=== PATIENT | female | born 1980 | race Caucasian/White ===

== ENCOUNTER → 2022-09-03 11:46 | Outpatient (CLI) | payer OTHER, SELFPAY ==
--- NOTE | ~2022-09-03 | US_ITS ---
Thyroid ultrasound. Clinical History: Nontoxic goiter Findings: Real-time sonography of the thyroid gland was performed. The right lobe measures 4.2 x 1.6 x 1.5 cm. The left lobe measures 4.1 x 1.2 x 1.6 cm. The isthmus is 4 mm in AP diameter. There is a 4 mm hypoechoic nodule at the left midpole. There is an adjacent 3 mm hypoechoic nodules w ith the left midpole. Impression: Subcentimeter left thyroid lobe nodules, as noted above. No further follow-up required for these find ings.. Reviewed, dictated and finalized at location M. US PERFORMER Impression: Subcentimeter left thyroid lobe nodules, as noted above. No further follow-up r equired for these findings..
== END ==
PROVIDERS: PCP Internal Medicine; Visit Provider Internal Medicine Endocrinology, Diabetes & Metabolism
DX: E04.2 Nontoxic multinodular goiter (principal)
CPT/HCPCS: 76536

== ENCOUNTER → 2022-11-14 13:00 | Outpatient (CLI) | payer OTHER, SELFPAY ==
--- NOTE | ~2022-11-14 | CT_ITS ---
EXAMINATION: CT abdomen wo/w con DATE: 11/14/2022 13:46 INDICATION: Abnormal cortisol. Abnormal results of other endocrine function studies. TECHNIQUE: Computed tomography (CT) of the abdomen was performed without and with 100 mL Omnipaque 35 0 intravenous contrast. Automated exposure control and iterative reconstruction technique were employ ed. The dose-length product was 2032.34 mGy-cm. COMPARISON: None. FINDINGS: The visualized portions of the lung bases demonstrate mild atelectasis. No pleural effusion . The heart size is normal. No pericardial effusion. There is diffuse hepatic steatosis. There are ch anges of cholecystectomy. The pancreas, spleen, and right adrenal gland are normal. There is a 10 mm mass in left adrenal gland measuring low-attenuation on noncontrast images, consistent with an adenom a. The kidneys are normal. There are no dilated loops of bowel. There is moderate thoracic spondylosi s and mild lumbar spondylosis. There is an electrode in left S3 neural foramen. IMPRESSION: 1. 10 mm left adrenal adenoma. 2. Diffuse hepatic steatosis. Reviewed, dictated and finalized at location A.
[2022-11-14 13:21] LABS: Estimated Glomerular Filt Rate > 60
== END ==
PROVIDERS: PCP Internal Medicine; Visit Provider Internal Medicine Endocrinology, Diabetes & Metabolism
DX: R94.7 Abnormal results of other endocrine function studies (principal); D35.02 Benign neoplasm of left adrenal gland; K76.0 Fatty (change of) liver, not elsewhere classified
CPT/HCPCS: 74170; Q9967

== ENCOUNTER → 2023-06-24 09:40 | Outpatient (CLI) | payer OTHER, MEDICAID, SELFPAY ==
--- NOTE | ~2023-06-24 | MM_ITS ---
EXAMINATION: MM screening justina BI w doreen HISTORY: Screening mammogram TECHNIQUE: Craniocaudal and mediolateral oblique 3-D tomosynthesis images were obtained and synthetic 2-D images were generated. CAD analysis was submitted and interpreted. COMPARISON: None, baseline BREAST PARENCHYMAL COMPOSITION: There are scattered areas of fibroglandular density. FINDINGS: No suspicious mass, calcification, or architectural distortion are identified in either balwinder ast to suggest malignancy. IMPRESSION: 1. No mammographic evidence of malignancy. 2. Recommend routine screening mammography in one year. BI-RADS Category 1: Negative Reviewed, dictated and finalized at location A. TING DETAILER
== END ==
PROVIDERS: Visit Provider Internal Medicine
DX: Z12.31 Encounter for screening mammogram for malignant neoplasm of breast (principal)
CPT/HCPCS: 77063; 77067

== ENCOUNTER 2024-03-15 07:54 | Outpatient (CLI) | payer OTHER, MEDICAID, SELFPAY ==
--- NOTE | 2024-04-04 11:55 | WPDSLEEPSTUD ---
Sleep Study Date of Study: 03/15/24 Ordering Provider: Arianne Rodriguez DO Interpreting Physician: Shellie Tellez MD Sleep Study Type: Split Polysomnogram Height: 1.63 m Weight: 108.862 kg Body Mass Index: 41.1 Neck Circumference (inches): 17 [place]: 11 Reason for Sleep Study Hypersomnolence, known obstructive sleep apnea, has use CPAP previously * 04/24/2024, home sleep test, AHI 5, desaturation 86% * 05/27/2014, CPAP titration optimal pressure 7 cm. Patient used the CPAP machine for year then quit, unable to tolerate CPAP. Sleep History Betzy Morales is a 43-year-old woman who complains of loud snoring, excessive daytime sleepiness including falling asleep at her desk. She is an civilian jail officer. She has other family members have sleep apnea. She has difficulty waking in the morning. She has used CPAP in the past, in 2013, after a home sleep test showing mild obstructive sleep apnea. She occasionally awakens from sleep feeling short of breath. She constantly awakens at night with heartburn, belching or coughing if she does not use Nexium. She frequently snores and is frequently loud enough that others complain about it. She constantly has difficulty sleeping when she has a cold. She rarely wakes up gasping for breath at night. She frequently has breathing problems at night observed by others. She occasionally sweats excessively at night, occasionally notices her heart pounding or beating irregularly at night. She rarely falls asleep during the day, however occasionally falls asleep involuntarily. She does not fall asleep while driving. She frequently has loss of muscle tone with strong emotion. She rarely has daytime difficulties due to excessive sleepiness. She rarely feels paralyzed on waking or falling asleep. She occasionally has vivid dreamlike scenes upon awakening or falling asleep. She rarely feels afraid to go to sleep. She frequently has nightmares. She frequently remembers her dreams. She rarely has racing thoughts. She rarely feels sad, depressed, or anxious. She always has muscular tension. She frequently notices parts of her body jerking. She occasionally kicks at night and occasionally has crawling and aching feelings in her legs. She occasionally has leg pain during the night. She frequently has morning jaw pain. She constantly grinds her teeth at night. She constantly is bothered by pain during the day, constantly is awakened by pain during the night. She constantly wakes up feeling stiff in the morning with sore achy muscles and pain in the neck and spine. Normal bedtime is 11:00 p.m., falling asleep within 30 minutes, sometimes not waking during that night but occasionally waking once at night to use the bathroom. She is able to return to sleep within 5 minutes. Her normal wake time is 7:00 a.m.. On weekends, she goes to bed later, 12 midnight and wakes at 10:00 a.m.. Sometimes she is too tired to go out on the weekends. She estimates getting an average of 7-8 hours of sleep at night. She is sleepy for 2 hours after waking. She does not generally take naps in the afternoon or evening but a short nap lasting 10-15 minutes might be refreshing. She feels better in the afternoon compared to other times of day. Habits: Tobacco: quit 10 years ago Caffeine: 1-2 per day Alcohol: none Recreational substances: none PMF Past Medical History Medical History delivery delivered 2007 and 2014 Endometriosis determined by laparoscopy Hydronephrosis due to obstruction of bladder JOSE (obstructive sleep apnea) Post-lymphadenectomy lymphedema of arm 2001 & 2004 Surgical History Surgical History History of carpal tunnel release 04/2023 & 09/2023 History of cholecystectomy Family History Family History (Reviewed 04/07/24 @ 21:03 by Melisa
[2024-04-07 21:24] VITALS: BMI 41.1
== END 2024-03-16 06:58 | disposition home or self-care (01) ==
LOC: ANHCSM 07:54
PROVIDERS: PCP Family Medicine; Visit Provider Family Medicine
DX: G47.9 Sleep disorder, unspecified (principal); G47.33 Obstructive sleep apnea (adult) (pediatric)
CPT/HCPCS: 95811

== ENCOUNTER 2024-08-01 16:10 | Emergency (ER) | payer OTHER, MEDICAID, SELFPAY ==
--- NOTE | ~2024-08-01 | XR_ITS ---
EXAMINATION: XR chest 2V DATE: 08/01/2024 16:43 INDICATION: Shortness of breath, cough and congestion TECHNIQUE: frontal and lateral views of the chest were obtained. COMPARISON: None FINDINGS: The lungs are clear with no focal airspace opacities, pulmonary edema, pleural effusion or pneumothor ax. The cardiomediastinal silhouette is normal. Cholecystectomy clips in the upper abdomen. IMPRESSION: 1. No acute cardiopulmonary disease. Reviewed, dictated and finalized at location A. T COMBINE DRIVER
--- NOTE | 2024-08-01 16:23 | ED.URI ---
HPI - URI/Sore Throat General Chief Complaint: Upper Respiratory Infection Stated Complaint: Congestion Time Seen by Provider: 08/01/24 16:23 Source: patient Mode of arrival: ambulatory Limitations: no limitations History of Present Illness HPI Narrative: Betzy is a 43-year-old female patient presenting to the clinic today with complaints of cough and congestion x2 days. She reports she is having some chest heaviness/ left chest discomfort with nonproductive cough and chest congestion. She has had pneumonia exposure from her father. Denies any fevers, chills, or body aches. No recent travel, injury/trauma, or hemoptysis. Patient vapes. MD elicited complaint: sore throat and nasal congestion Related Data Home Medications ?Medication ?Instructions ?Recorded ?Confirmed ?Last Taken ?Type acetaminophen 650 mg 650 mg PO TID 10/21/22 07/11/24 Unknown History tablet,extended release (Tylenol Arthritis Pain) cetirizine 10 mg capsule (Zyrtec) 10 mg PO DAILY PRN 10/21/22 07/11/24 Unknown History epinephrine 0.15 mg/0.15 mL subcut PRN 10/21/22 07/11/24 Unknown History auto-injector (for 33 to 66 lb patients) esomeprazole magnesium 20 mg 20 mg PO DAILY 10/21/22 07/11/24 Unknown History capsule,delayed release (Nexium) fexofenadine 180 mg tablet 180 mg PO DAILY 10/21/22 07/11/24 Unknown History (Sara Allergy) fluticasone propionate 50 1 spray intranasal DAILY 10/21/22 07/11/24 Unknown History mcg/actuation nasal spray,suspension (Flonase Allergy Relief) levomefolate Ca 3 mg-B6 35 1 cap PO BID 10/21/22 07/11/24 Unknown History mg-meB12 2 mg-algal oil 90.314 mg capsule (Metanx (algal oil)) methenam 118 mg-m.blue 10 1 tablet PO QID 10/21/22 07/11/24 Unknown History mg-s.phos 40.8 mg-p.salic 36 mg-hyos capsule (Uro-MP) montelukast 10 mg tablet 10 mg PO DAILY 10/21/22 07/11/24 Unknown History (Singulair) olopatadine 0.2 % eye drops 1 drp EACH EYE DAILY 10/21/22 07/11/24 Unknown History olopatadine 0.6 % nasal spray 2 spray intranasal Q12H 10/21/22 07/11/24 Unknown History rizatriptan 10 mg tablet (Maxalt) 10 mg PO ONCE PRN 10/21/22 07/11/24 Unknown History tacrolimus 0.5 mg capsule, 0.5 mg PO BID 10/21/22 07/11/24 Unknown History immediate-release MP Thyroid See Rx Instructions PO .COMPLEX 07/11/24 07/11/24 Unknown History amlodipine 10 mg-benazepril 40 mg 1 cap PO DAILY 07/11/24 07/11/24 Unknown History capsule chlorthalidone 25 mg tablet 25 mg PO DAILY 07/11/24 07/11/24 Unknown History diazepam 2 mg tablet 2 mg PO QHS PRN 07/11/24 07/11/24 Unknown History estradiol 0.25 mg/0.25 gram (0.1 1 packet transdermal DAILY 07/11/24 07/11/24 Unknown History %) transdermal gel packet naltrexone 50 mg tablet 9 mg PO TID 07/11/24 07/11/24 Unknown History spironolactone 25 mg tablet 100 mg PO DAILY 07/11/24 07/11/24 Unknown History testosterone 100 mg implant pellet 100 mg subcut ONCE 07/11/24 07/11/24 Unknown History venlafaxine 75 mg capsule,extended 75 mg PO DAILY 07/11/24 07/11/24 Unknown History release 24 hr Allergies Allergy/AdvReac Type Severity Reaction Status Date / Time Penicillins Allergy Intermediate Hives Verified 08/01/24 16:18 latex Allergy Unknown SWELLING, Verified 08/01/24 16:18 ITCHING codeine AdvReac Intermediate disorienate Verified 08/01/24 16:18 d pseudoephedrine AdvReac Intermediate increase Verified 08/01/24 16:18 pluse propoxyphene AdvReac Mild Nausea and Verified 08/01/24 16:18 Vomiting Review of Systems Review of Systems: Pertinent positives per HPI. Patient denies any fever, chills, rash, headache, visual changes, dizziness, chest pain, palpitations, nausea, vomiting, diarrhea, constipation, abdominal pain, or any urinary issues. PMFSH Past Medical History Medical History JOSE (obstructive sleep apnea) Hydronephrosis due to obstruction of bladder delivery delivered 2007 and 2014 Post-lymphadenectomy lymphedema of arm 2001 & 2004 Endometriosis determined by laparoscopy Surgical History Surgical History History of carpal tunnel release 04/2023 & 09/2023 History of cholecystectomy Family History Family History Mother Hypertension Heart problem Father Alcoholism Diabetes mellitus Hypertension Grandparent Skin cancer FH: prostate cancer Hypertension Heart problem Cerebrovascular accident Grandparent Diabetes mellitus Hypertension Other Family history of arthritis Social History Social History Social History: pt is currently on Annovera for contraceptive. She quit vaping in 2013. Had her flu vaccine in Jun, Tetanus vaccine in 2017, and pneumonia vaccine in 2013. Drinks 1 cup of soda, coffee, and tea/day. She is currently . 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 Betzy has had 3 pregnancies, 1 miscarriage and 2 live births. Date of last menstrua was 04/14/2022. She does monthly breast exams. Smoking status: Never smoker Tobacco type: e-cigarettes/vaping Smoking end date: 06/26/13 Alcohol intake: current Alcohol use details: 1-2 drinks monthly Substance use: never Substance use type: does not use Do You Feel Safe in your Home?: Yes Lack of Transportation: No Current Housing: I Have Housing Difficulty w/ Childcare or Family Care: Decline to Answer Living arrangements: alone Occupation/Education: occupation Additional occupation/education comments: Audit Specialist at [employer] Gender identity (if verbalized by the patient): Female Sexual Orientation (if Verbalized by the Patient): Straight or Heterosexual Agree to blood products: Yes Comments At the time of my signature, I reviewed and agree with the nursing past medical, surgical, social, and family history. There is no relevant family history pertinent to the patient complaint. Exam Narrative: General: Well-developed, well nourished, in no apparent distress Head: Normocephalic, atraumatic Eyes: Pupils equally round and reactive to light bilaterally, EOM intact, sclera and conjunctive clear, no discharge, lids normal Ears: TMs intact and clear, ear canals clear, no drainage, grossly hearing normal. Nose: Nares patent, clear nasal discharge, no inflammation, no sinus tenderness. Mouth: Oral pharynx without lesions or masses, good dentition, MMM. Neck: Supple, trachea midline, no enlargement of anterior or posterior cervical nodes, no thyroid masses or goiter palpable. Cardio: Regular rate and rhythm, s1 and s2 normal, no murmur appreciated. Resp: Clear to auscultation bilaterally, no rhonchi, rales, wheezing or rubs Course Course Emergency Course: Portions of this record may have been created with voice recognition software. Level of Care: Express Care Visit Vital Signs Vital signs: Vital Signs Temperature 36.9 C 08/01/24 16:32 Pulse Rate 93 08/01/24 16:32 Respiratory Rate 16 08/01/24 16:32 Blood Pressure 153/93 H 08/01/24 16:32 Pulse Oximetry 98 08/01/24 16:32 Oxygen Delivery Room Air 08/01/24 16:32 Temperature 36.9 C 08/01/24 16:32 Pulse Rate 93 08/01/24 16:44 Respiratory Rate 16 08/01/24 16:44 Blood Pressure 153/93 H 08/01/24 16:32 Pulse Oximetry 98 08/01/24 16:44 Oxygen Delivery Room Air 08/01/24 16:32 Vital signs reviewed MDM - URI/Sore Throat MDM Narrative Medical decision making narrative: At the time of visit patient is resting comfortably on the exam table. Patient appears to be nontoxic. Labs: COVID and influenza testing was negative in the clinic today. Diagnostics: Chest x-rays negative for any acute cardiopulmonary process. Wells criteria for PE: 0.0?points Low risk group: 1.3% chance of PE in an ED population. Another study assigned scores <=4 as ?PE Unlikely? and had a 3% incidence of PE. Plan: I suspect patient has URI with cough and congestion. Prescription for prednisone and albuterol inhaler was sent to the pharmacy. Supportive measures were discussed with the patient and they voiced understanding discharge instructions and agrees to treatment plan. Return precautions reviewed Differential Diagnosis Differential diagnosis: Likely upper respiratory infection, otitis media, sinusitis, viral infection, bronchitis, influenza, pharyngitis and other (COVID) Imaging Data Radiologist's impression: ITS Impressions Chest X-Ray 08/01/24 16:46 IMPRESSION: 1. No acute cardiopulmonary disease. Discharge Plan Discharge Clinical Impression: Upper respiratory infection with cough and congestion Patient Disposition: Home, Self-Care Condition: Stable Instructions: Antibiotic Form, Cold Symptoms (ED) Additional Instructions: Chest x-rays negative for any acute cardiopulmonary process Take prescription medications only as prescribed-prednisone and albuterol inhaler Increase fluids and stay well hydrated Tylenol/motrin for pain/fever Flonase and OTC antihistamines as directed Vicks vapor rub to open sinuses Sinus rinses for congestion Cepacol spray, cough drops, throat lozenges, warm tea with honey/lemon, gargle salt water to soothe throat BRAT diet for diarrhea Clear liquids x 24 hours then advance as tolerated for nausea/vomiting Go to the ED if you develop a worsening in your condition- high fever not controlled by Tylenol or Motrin, dehydration, weakness, lethargy, shortness of breath, or chest pain. Follow up with your PCP in 3-5 days if symptoms persist. Patient Language: Ukrainian Prescriptions: New prednisone 20 mg tablet 40 mg PO DAILY 5 Days Qty: 10 0RF albuterol sulfate 90 mcg/actuation HFA aerosol inhaler 2 puff inhalation Q4-6H PRN (Reason: shortness of breath or wheezing) 30 Days Qty: 8.5 0RF No Action montelukast [Singulair] 10 mg tablet 10 mg PO DAILY olopatadine 0.6 % spray,non-aerosol 2 spray intranasal Q12H Rx Instructions: administer into each nostril olopatadine 0.2 % drops 1 drp EACH EYE DAILY [id number]-algal oil [Metanx (algal oil)] 3 mg-35 mg-2 mg -90.314 mg capsule 1 cap PO BID epinephrine 0.15 mg/0.15 mL auto-injector subcut PRN Zyrtec 10 mg capsule 10 mg PO DAILY PRN esomeprazole magnesium [Nexium] 20 mg capsule,delayed release(DR/EC) 20 mg PO DAILY fexofenadine [Sara Allergy] 180 mg tablet 180 mg PO DAILY fluticasone propionate [Flonase Allergy Relief] 50 mcg/actuation spray,suspension 1 spray intranasal DAILY Rx Instructions: administer into each nostril Uro-MP 118-10-40.8-36 mg capsule 1 tablet PO QID Rx Instructions: administer with plenty of fluids tacrolimus 0.5 mg capsule 0.5 mg PO BID rizatriptan [Maxalt] 10 mg tablet 10 mg PO ONCE PRN Rx Instructions: as a single dose acetaminophen [Tylenol Arthritis Pain] 650 mg tablet extended release 650 mg PO TID testosterone 100 mg pellet 100 mg subcut ONCE Rx Instructions: as a single dose estradiol 0.25 mg/0.25 gram (0.1 %) gel in packet 1 packet transdermal DAILY MP Thyroid See Rx Instructions PO .COMPLEX Rx Instructions: 30mg orally; chlorthalidone 25 mg tablet 25 mg PO DAILY amlodipine-benazepril 10-40 mg capsule 1 cap PO DAILY venlafaxine 75 mg capsule,extended release 24hr 75 mg PO DAILY diazepam 2 mg tablet 2 mg PO QHS PRN naltrexone 50 mg tablet 9 mg PO TID spironolactone 25 mg tablet 100 mg PO DAILY Patient Comments: Take 2 tablets by mouth once daily (DME) CPAP Equipment See Rx Instructions .Route .MEDSUPPLY Qty: 1 0RF Rx Instructions: Rx: CPAP 7 cm H2O, size small ResMed AirFit N 30 I under the nose mask, CPAP filters/tubing DME: IV & Resp Care Follow-up/Referrals: Mone,Bernabe Dumont MD [Primary Care Provider] - Time of Disposition: 16:51 Quality NIHSS Nursing Documentation ED NIHSS nursing documentation: reviewed/agree
[2024-08-01 16:32] VITALS: BP 153/93; PULSE 93; RESP 16; TEMP 36.9; O2SAT 98
[2024-08-01 16:44] VITALS: PULSE 93; RESP 16; O2SAT 98
[2024-08-01 18:50] LABS: EDCOVIDSCREEN Negative (Negative); EDINFLUASCREEN Negative (Negative); EDINFLUBSCREEN Negative (Negative)
== END 2024-08-01 17:02 | disposition home or self-care (01) ==
PROVIDERS: Emergency Provider Nurse Practitioner Family; PCP Internal Medicine
DX: J06.9 Acute upper respiratory infection, unspecified (principal); F17.290 Nicotine dependence, other tobacco product, uncomplicated; Z20.822 Contact with and (suspected) exposure to COVID-19
CPT/HCPCS: 71046; 87426; 87804; 99213; G0463

== ENCOUNTER 2024-12-26 16:26 | Emergency (ER) | payer OTHER, MEDICAID, SELFPAY ==
--- OUTSIDE RECORDS SUMMARY | 2024-12-26 16:28 | XMS_ITS | Encounter Summary ---
Author Organization [facility] Health Address [address] [place] [address] Care Team Providers Care Certified Medical Aide Name Role Phone Unavailable Primary Care Provider Unavailabl e Prior Encounters Date Type Department Care Team Description 07/15/2019 Converted CPS Chart Documents [facility] [address] [place] [id number] <No scans attached> 07/15/2019 Converted 13x Documents [facility] [address] [place] [phone] <No scans attached> Plan of Treatment Not on file Procedures Procedure Name Priority Date/Time Associated Diagnosis Comments CANCELLED APPOINTMENT Routine 11/24/2020 2:00 AM CDT PERIO MAINTENANCE Routine 08/19/2020 2:0 0 AM FORENSIC LOCKSMITH ORAL HYGIENE INSTRUCTIONS Routine 2020 2:00 AM FORENSIC LOCKSMITH PERIODIC ORAL EVALUATION - ESTABLISHED PATIENT Routine 08/19/2020 2:00 AM FORENSIC LOCKSMITH BITEWINGS - FOUR RADIOGRAPHIC IMAGES Routine 08/19/2020 2:00 AM FORENSIC LOCKSMITH NC X-RAY Routine 08/03/2020 2:00 AM FORENSIC LOCKSMITH OFFICE VISIT FOR OBSERVATION (DURING REGULARLY SCHEDULED HOURS) - NO OTHER SERVICES PERFORMED Routine 07/10/2020 2:00 AM FORENSIC LOCKSMITH 9 [place] Routine 06/18/2020 2:0 0 AM FORENSIC LOCKSMITH CANCELLED APPOINTMENT Routine 05/14/2020 2:00 AM FORENSIC LOCKSMITH 15 CORE BUILDUP, INCLUDING ANY PINS WHEN REQUIRED Routine 04/13/2020 2:00 AM CDT 15 CEMENT CROWN Routine 04/13/2020 2:00 AM CDT 15 CERECFIRED CROWNPOST Routine 04/13/20 2:00 AM CDT NC X-RAY Routine 04/13/2020 2:00 AM CDT 14 O COMPOSITE FILLING Routine 0 2:00 AM CDT PERIODIC ORAL EVALUATION - ESTABLISHED PATIENT Routine 02/12/2020 2:00 AM CDT PERIO MAINTENANCE Routine 02/12/2020 2:0 0 AM CDT ORAL HYGIENE INSTRUCTIONS Routine 2019 2:00 AM CDT PERIO MAINTENANCE Routine 08/08/2019 2:0 0 AM FORENSIC LOCKSMITH ORAL HYGIENE INSTRUCTIONS Routine 2019 2:00 AM FORENSIC LOCKSMITH UL PERIODONTAL SCALING AND ROOT PLANING - FOUR OR MORE TEETH PER QUADRANT Routine 05/15/2019 2:00 AM FORENSIC LOCKSMITH ORAL HYGIENE INSTRUCTIONS Routine 2018 2:00 AM FORENSIC LOCKSMITH UL HONEY DECON/QD Routine 05/15/2019 2:00 AM FORENSIC LOCKSMITH UL ANTIBACT IRR/QUAD Routine 05/15/2019 2:00 AM FORENSIC LOCKSMITH PROPHYLAXIS - ADULT Routine 05/15/2019 2 :00 AM FORENSIC LOCKSMITH BITEWINGS - FOUR RADIOGRAPHIC IMAGES Routine 05/15/2019 2:00 AM FORENSIC LOCKSMITH PERIO CONSULT Routine 05/02/2019 2:00 AM FORENSIC LOCKSMITH Visit Diagnoses Not on file Insurance O
--- OUTSIDE RECORDS SUMMARY | 2024-12-26 16:28 | XMS_ITS ---
Author Organization [facility] Address [address] [facility], [address] [address] Phone Care Team Providers Care Welfare Interviewer Name Role Phone Bernabe Shore MD Primary Care Provider [phone] Ole Ryder MD Unavailable [phone] Dandy Ji MD Unavailable [phone] Jordan Rocha MD Unavailable [phone] Joan Pedraza APRN, EVAPORATOR OPERATOR [employer] Unavailable [phone] [employer] Chronic Condition Monitoring Status:Enrolled (Active) Start date:05/02/2024 Enrollment date:05/02/2024 Related social drivers of health:Intimate Partner Violence, Tobacco Use, Financial Resource Strain, Stress, Physical Activity, Transportation Needs Continued Care and Services Coordination
[2024-12-26 16:29] VITALS: BP 123/86; PULSE 123; RESP 20; TEMP 36.3; O2SAT 100
--- OUTSIDE RECORDS SUMMARY | 2024-12-26 16:29 | XMS_ITS | Encounter Summary ---
Author Organization [facility] Healthcare Address [address] [place] [address] Care Team Providers Care Residential Property Tax Appraiser Name Role Phone Bernabe Shore MD Primary Care Provider [phone] Bernabe Shore MD Unavailable [phone] Ole Hodge MD Unavailable [phone] Nathalia Ba MD Unavailable [phone] Dandy Ji MD Unavailable [phone] Milagro Beauchamp MD Unavailable [phone] Familia Painting MD Unavailable [phone] Emi Anderson MD Unavailable [phone] Rocio Mata DPT Unavailable [phone] Reason for Visit * Reason Onset Date Comments PMC Preprocedure 11/29/2024 Encounter Details Date Type Department Care Team (Late st Contact Info) Description 11/29/2024 Telephone [facility] [address] [facility] [address] [place] [address] Alie Rosas MD [address] [place] [address] PMC Preprocedure Social History Tobacco Use Types Packs/Day Years Used Date Smoking Tobacco: Former Cigarettes 1 13 0 11/24/2000 - 11/24/2013 E-cigarettes Vaping Smokeless Tobacco: Never Alcohol Use Standard Drinks/Week Comments Yes 0 (1 standard drink = 0.6 oz pur e alcohol) AUDIT-C Answer Date Recorded Q1: How often do you have a drink containing alc ohol? Monthly or less 10/25/2024 Q2: How many drinks containi ng alcohol do you have on a typical day when you are drinking? 1 or 2 10/25/2024 Q3: How often do you have si x or more drinks on one occasion? Never 10/25/2024 Hunger Vital Sign Answer Date Recorded Within the past 12 months, y ou worried that your food would run out before you got the money to buy more. Never true 09/18/19 25 Within the past 12 months, t he food you bought just didn't last and you didn't have money to get more. Never true 09/17/2024 Personal Safety Answer Date Recorded Have you ever been in or are you currently in a harmful physical or emotional relationship or is someone making you feel afraid or unsafe? 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 file Not on file Not on file documented as of this encounter Plan of Treatment Upcoming Encounters Date Type Department Care Team (Late st Contact Info) Description 02/28/2025 11:30 AM CDT Hospital Encounter [facility] [address] [place] [address] Kacey Jean MD [address] [facility] [phone] [place] [address] 02/28/2025 11:30 AM CDT - 02/28/2025 3:25 PM CDT Surgery [facility] [address] [place] [address] Kacey Jean MD [address] [phone] [place] [address] CYSTOSCOPY Scheduled Procedures Name Priority Associated Diagnoses Date/Ti me CYSTOSCOPY Endometriosis Chronic pelvic pain in female 02/28/2025 11:30 AM CDT XI HYSTERECTOMY - LAPAROSCOPIC ROBOTIC ASSISTED Endometriosis Chronic pelvic pain in female 02/28/2025 11:30 AM CDT XI SALPINGO - LAPAROSCOPIC ROBOTIC ASSISTED Endometriosis Chronic pelvic pain in female 02/28/2025 11:30 AM CDT XI ROBOTIC OPERATIVE LAPAROSCOPY - EXCISION ENDOMETRIOSIS Endometriosis Chronic pelvic pain in female 02/28/2025 11:30 AM CDT XI APPENDECTOMY - LAPAROSCOPIC ROBOTIC ASSISTED Endometriosis Chronic pelvic pain in female 02/28/2025 11:30 AM CDT XI OOPHORECTOMY - LAPAROSCOPIC ROBOTIC ASSISTED Endometriosis Chronic pelvic pain in female 02/28/2025 11:30 AM CDT documented as of this encounter Goals Goal Patient Goal Type Associated Problems Recent Progress Patient-Stated? Author CCM Chronic Pain Care Plan Chronic Care Management On track(2024 2:39 PM CDT) No Karina Bennett, KAI Note: Problem: Chronic Pain Goals: 1. Minimize further functional decline 2. Maximize quality of life 3. Control pain Strategies: - Activity/exercise program recommendation - Conservative stepwise pain medicine strategy with multi-disciplinary approach - Recommend healthy lifestyle strategies and compensatory methods as needed Reduce the likelihood of falling Lifestyle Improving( 9:47 AM CDT) No Nathalia Norton RN Note: Below are four things you can do to prevent falls: Begin an exercise program to improve your leg strength & balance Ask your doctor or pharmacist to review your medicines Get annual eye check-ups & update your eyeglasses Make your home safer by: Removing clutter & tripping hazards Putting railings on all stairs & adding grab bars in the bathroom Having good lighting, especially on stairs Contact your local community or senior center for information on exercise, fall prevention programs, or options for improving home safety. documented as of this encounter Visit Diagnoses Not on filedocumented in this encounter Care Teams Residential Property Tax Appraiser Relationship Specialty Start Date End Date Bernabe Shore MD 2 [facility] [address] [place] [address] PCP - General Family Medicine 07/24/23 Bernabe Shore MD [address] [address] 07/24/23 Ole Hodge MD [address] [place] [address] 03/15/18 Nathalia Ba MD [address] [place] [address] Referring Physician Ophthalmology 10/25/22 Dandy Ji MD [address] [place] [phone] Neurologist Neurology 10/25/22 Milagro Beauchamp MD [address] [place] [phone] Neurologist Neurology 10/25/22 Familia Painting MD [address] [place] [phone] Consulting Physician Rheumatology 10/25/22 Emi Anderson MD [address] [place] [phone] Surgeon Orthopedic Surgery 11/04/22 Rocio Mata DPT [address] [facility] [address] [facility] [address] [place] [address] Physical Therapist Physical Therapy 10/17/24 documented as of this encounter
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
--- OUTSIDE RECORDS SUMMARY | 2024-12-26 16:29 | XMS_ITS | Encounter Summary ---
Author Organization [facility] Address [address] [place] [address] Phone Care Team Providers Care Aquatic Life Laborer Name Role Phone Bernabe Shore MD Primary Care Provider Ole Ryder MD Unavailable [phone] Dandy Ji MD Unavailable Jordan Rocha MD Unavailable [phone] Princess Diop RN Unavailable UnavailJoan Mars APRN, CLAY PUDDLER Unavailable [phone] Reason for Visit * Reason Comments Medication Refill Encounter Details Date Type Department Care Team (Late st Contact Info) Description 12/14/2023 Refill [facility] - Family Medicine [facility] #2 [place] [address] Bernabe Shore MD #[address] [address] Medication Refill Social History Tobacco Use Types Packs/Day Years Used Date Smoking Tobacco: Former Cigarettes 1 13 0 09/15/2000 - 09/15/2013 Smokeless Tobacco: Never Alcohol Use Standard Drinks/Week Comments No 0 (1 standard drink = 0.6 oz pur e alcohol) socially PHQ-2 Answer Date Recorded Total Score - Questions 1-9 0 10/25 Education Answer Date Recorded What is the highest level of school you have completed or the highest degree you have received? Bachelor's degree (e.g., BA, AB, BS) 07/12/2021 Sexually Active Control Partners Comments Yes Male Comments No Sex and Gender Information Value Date Recorded Sex Assigned at Not on file Legal Sex Female 10:41 PM CDT Gender Identity Not on file Sexual Orientation Not on file documented as of this encounter Miscellaneous Notes * Telephone Encounter - Meredith Yao RN - 12/14/2023 10:12 AM CDT Medication failed the protocol, provider to review and approve the medication order if appropriate. Requested Prescriptions Pending Prescriptions Disp Refills spironolactone (ALDACTONE) 50 MG Tablet [Pharmacy Med Name: SPIRONOLACTONE 50 MG TABLET] 180 Tablet0 Sig: TAKE 1 TABLET BY MOUTH IN THE MORNING AND IN THE EVENING Diuretics Protocol Failed - 12/14/2023 12:08 AM Failed - Serum potassium on record in past 12 months POTASSIUM Date Value Ref Range Status 12/01/2022 4.0 3.5 - 5.1 mmol/L Final Failed - Serum sodium on record in past 12 months SODIUM Date Value Ref Range Status 12/01/2022 140 136 - 144 mmol/L Final Failed - GFR on record in past 12 months GFR, EST. NONAFRICAN Date Value Ref Range Status 12/01/2022 >60 >=60 Final Passed - Blood pressure on record in past 12 months Clinician-entered: BP Readings from Last 3 Encounters: 10/30/23 126/70 06/16/23 122/80 05/01/23 122/78 Patient-entered: No data recorded Passed - Visit with relevant provider in past 12 months or upcoming 90 days Recent Visits Date Type Provider Dept 04/03/23 Office Visit Michelle Zurita APRN, SUPERVISOR [employer] [facility] Edward Showing recent visits within past 365 days and meeting all other requirements Future Appointments No visits were found meeting these conditions. Showing future appointments within next 90 days and meeting all other requirements documented in this encounter Plan of Treatment Upcoming Encounters Date Type Department Care Team (Late st Contact Info) Description 02/10/2025 11:00 AM CDT Telemedicine [facility] Neurology [facility] #2 [facility] [place] [address] Joan Pedraza APRN, CLAY PUDDLER #2 [facility] [address] 03/28/2025 9:30 AM CDT Procedure Visit [facility] #2 [facility] [place] [address] Dandy Ji MD #2 [facility] [address] 04/07/2025 10:45 AM CDT Office Visit [facility] #2 [place] [address] Bernabe Shore MD #[address] [address] documented as of this encounter Goals Goal Patient Goal Type Associated Problems Recent Progress Patient-Stated? Author Chronic Disease Management Chronic Disease Management On track(2023 1:33 PM FRAME POLISHER) Candy Vargas, RN Note: To effectively check in with [facility]'s Remote Patient Monitoring Hypertension program via text on Monday at 5:00* pm. documented as of this encounter Visit Diagnoses Not on filedocumented in this encounter Additional Health Concerns Assessment Noted Time PHQ-9 Depression Total Score: 0 11/16/19 22 10:24 AM CDT documented as of this encounter Care Teams Aquatic Life Laborer Relationship Specialty Start Date End Date Bernabe Shore MD #[address] [address] PCP - General Family Medicine 08/28/15 Ole Ryder MD [address] [place] [address] Obstetrics & Gynecology 03/28/17 Dandy Ji MD #2 [place] [address] Consulting Physician Neurology 09/14/21 Jordan Rocha MD 1 [place] [address] Internal Medicine 04/13/24 Princess Diop RN [place] [employer] Key Punch Teacher 05/02/24 05/02/24 Joan Pedraza APRN, CLAY PUDDLER [address] [place] [address] Nurse Practitioner Advanced Practice Nurse 08/13/24 documented as of this encounter
--- OUTSIDE RECORDS SUMMARY | 2024-12-26 16:29 | XMS_ITS | Referral Summary ---
Author Organization [facility] Address [address] [place] [address] Care Team Providers Care Agency Cashier Name Role Phone Bernabe Shore MD Primary Care Provider [phone] Bernabe Shore MD Unavailable [phone] Ole Hodge MD Unavailable [phone] Nathalia Ba MD Unavailable Dandy Ji MD Unavailable [phone] Milagro Beauchamp MD Unavailable Familia Painting MD Unavailable [phone] Emi Anderson MD Unavailable [phone] Rocio Mata DPT Unavailable [phone] Encounters Date Type Department Care Team Description 12/17/2024 3:45 PM CDT Therapy [facility] Physical Therapy [address] [place] [address] Rocio Mata DPT Neck pain (Primary Dx) 12/16/2024 1:58 PM CDT - 12/16/2024 11:59 PM CDT Hospital Encounter [facility] at the [facility] [address] [facility] [address] [place] [address] Alie Rosas MD Sacroiliitis Discharge Disposition: Discharge to home or self care 12/12/2024 Telephone [facility] [address] [facility] [address] [place] [address] Alie Rosas MD PMC Preprocedure 12/11/2024 2:30 PM CDT Office Visit [facility] Obstetrics and Gynecology [address] [facility] 7th Floor [address] [place] [address] 7, Ob [facility] Provider 2 [facility] HPV vaccine counseling (Primary Dx); Low libido; Perimenopausal symptoms 12/04/2024 9:30 AM CDT Therapy [facility] Physical Therapy [address] [facility] [address] [place] [address] Kalie Hicks PTA Neck pain (Primary Dx) 12/03/2024 Orders Only [facility] Obstetrics and Gynecology [address] [facility] 7th [address] [place] [address] Rich Jeter RN Premature menopause (Primary Dx) 12/03/2024 Orders Only [facility] [address] [facility] [address] [place] [address] Alie Rosas MD Cervical pain (neck) (Primary Dx) 12/03/2024 11:00 AM CDT Office Visit [facility] Minimally Invasive Surgery [address] [facility] 7th [address] [place] [address] Kacey Jean MD Chronic pelvic pain in female (Primary Dx); Endometriosis; Family history of breast cancer 11/29/2024 Telephone [facility] [address] [facility] [address] [place] [address] Alie Rosas MD PMC Preprocedure 11/29/2024 12:30 PM CDT Therapy [facility] Physical Therapy [address] [facility] [address] [place] [phone] Kalie Hicks PTA Neck pain (Primary Dx) 11/29/2024 3:15 PM CDT Office Visit [facility] Obstetrics and Gynecology [address] [facility] 1st Floor [address] [place] [address] Farnaz Cheung MD Premature menopause (Primary Dx); Perimenopausal symptoms 11/26/2024 11:00 AM CDT Therapy [facility] Physical Therapy [address] [facility] [place] [address] Monse Jackson DPT Other chronic pain (Primary Dx); Endometriosis; Urinary incontinence, unspecified type 11/14/2024 10:45 AM CDT Therapy [facility] Physical Therapy [address] [place] [address] [address] [place] [address] Kalie Hicks PTA Neck pain (Primary Dx) 11/13/2024 10:15 AM CDT Office Visit [facility] Pain Management [facility] Medicine 14th [place] [address] [place] [address] Sameera Dangelo, PhD Trauma and stressor-related disorder (Primary Dx); Other chronic pain 11/07/2024 Orders Only [facility] Center at the [facility] Advanced [facility] [address] [place] [address] Alie Rosas MD Sacroiliitis (Primary Dx) 11/07/2024 3:00 PM CDT Therapy [facility] Physical Therapy [address] [place] [address] [address] [place] [address] Rocio Mata DPT Neck pain (Primary Dx) 10/31/2024 11:00 AM CDT Therapy [facility] Physical Therapy [address] [place] [address] [address] [place] [address] Kalie Hicks PTA Neck pain (Primary Dx) 10/29/2024 Plan of Care Documentation [facility] Physical Therapy [address] [place] [address] [place] [address] 10/28/2024 10:00 AM CDT Therapy [facility] Physical Therapy [address] [place] [address] [place] [address] Monse Jackson DPT Other chronic pain (Primary Dx); Endometriosis; Urinary incontinence, unspecified type 10/25/2024 9:28 AM CDT - 10/25/2024 11:59 PM CDT Hospital Encounter [facility] at the [facility] [address] [place] [address] Advanced Medicine [address] [place] [address] Alie Rosas MD Neuralgia of both pudendal nerves (Primary Dx); Pudendal neuralgia Discharge Disposition: Discharge to home or self care 10/23/2024 Telephone [facility] at the [address] [place] [address] Alie Rosas MD PMC Preprocedure 10/23/2024 1:30 PM CDT Therapy [facility] Physical Therapy [address] [place] [address] Kalie Hicks PTA Neck pain (Primary Dx) 10/22/2024 Telephone [facility] Center at the [address] [place] [address] Alie Rosas MD PMC Preprocedure 10/17/2024 Plan of Care Documentation [facility] Physical Therapy [address] [place] [address] 10/17/2024 10:30 AM CDT Therapy [facility] Physical Therapy [address] [place] [address] Rocio Mata, DPJackson Neck pain (Primary Dx) 10/11/2024 Orders Only [facility] Pain Center at the [address] [place] [address] Alie Rosas MD Pudendal neuralgia (Primary Dx) 10/09/2024 1:45 PM CDT Therapy [facility] Physical Therapy [address] [place] [address] Kalie Hicks PTA Neck pain (Primary Dx) from Last 3 Months Allergies Active Allergy Reactions Criticality Noted Date Comments Latex Rash Medium 03/15/2018 Penicillins Rash Medium 03/15/2018 Venom-Honey Bee Hives,Itching,Swelli ng,U rticaria Medium 11/22/1983 Localized swelling But hives spread Medications cetirizine (ZyrTEC) 10 mg tablet Take 1 tablet (10 mg total) by mouth daily 06/10/[address] (NexIUM) 20 mg capsule Take 1 capsule (20 mg total) by mouth daily 09/25/19 22 Active fexofenadine (ELENA) 180 mg tablet Take 1 tablet (180 mg total) by mouth daily 07/05/19 22 Active dg ykuj-djxsw-zjw 118-10-40.8-36 mg capsule Take 1 capsule by mouth 3 (three) times a day 10/14/19 22 Active EPINEPHrine 0.3 mg/0.3 mL auto-injection syringe as needed for anaphylaxis Active olopatadine 0.6 % spray,non-aeroso l 05/29/20 22 Active montelukast (SINGULAIR) 10 mg tablet 06/09/20 21 Active olopatadine (PATADAY) 0.2 % ophthalmic solution 06/09/20 21 Active levomefolate-B6- fiV96-hbzei oil (METANX) 3 mg-35 mg-2 mg -90.314 mg capsule daily Active tacrolimus (PROTOPIC) 0.1 % ointment APPLY TOPICALLY TO THE AFFECTED AREA TWICE DAILY 07/13/19 23 Active acetaminophen ER (TYLENOL) 650 mg 8 hr tablet Take 2 tablets (1,300 mg total) by mouth 3 (three) times a day Active spironolactone (ALDACTONE) 50 mg tablet TAKE 2 TABLETS BY MOUTH ONCE A DAY IN THE MORNING FOR 90 DAYS. 12/07/19 23 Active NON FORMULARY, FOR CLINIC ADMINISTERED MEDICATIONS ONLY, (not in database) Insert 1 each into the vagina every 12 (twelve) hours as needed 01/11/20 23 Active diazePAM (VALIUM) 2 mg tablet every 8 hours Active mometasone (Nasonex) 50 mcg/actuation nasal spray daily Active naltrexone (LOW DOSE) 4.5 mg capsuleIndicatio ns:Neuralgia of both pudendal nerves,Small fiber neuropathy Take 9 mg TID 270 capsule 3 04/10/20 24 Active venlafaxine XR (EFFEXOR-XR) 75 mg 24 hr capsule Take by mouth daily 06/09/20 24 Active testosterone 100 mg pellet 06/17/20 24 Active amLODIPine-benaz epriL (LOTREL) 10-40 mg per capsule Take 1 capsule by mouth daily Active Emgality Pen 120 mg/mL pen injector INJECT 240MG (CONTENTS OF 2 PENS) UNDER THE SKIN FOR 1 DOSE FOR MIGRAINE HEADACHE Active estradioL (Climara) 0.1 mg/[address] em[address] menopause Place 1 patch on the skin once a week for 7 days 12 patch 3 11/30/19 25 026 Active ubrogepant (UBRELVY) 100 mg tablet 11/14/19 25 Active terbinafine (LamiSIL) 250 mg tablet 12/03/19 25 Active tirzepatide, weight loss, (Zepbound) 15 mg/0.5 mL pen injectorIndicati ons:Class 3 severe obesity due to excess calories with serious comorbidity and body mass index (BMI) of 40.0 to 44.9 in adult Inject 0.5 mL (15 mg total) under the skin every 7 days 2 mL 1 12/12/19 25 Active Ubrelvy 50 mg tablet Take 1 tab by mouth as needed for migraine or headache. May repeat in 2 hrs if no relief. Indications: Migraine Headache 08/13/19 25 025 Discontin ued(Patie nt Reported) estradioL (VIVELLE-DOT) 0.05 mg/24 hrIndications:PM S (premenstrual syndrome),Perime nopausal vasomotor symptoms Place 1 patch on the skin 2 (two) times a week 8 patch 3 08/27/19 25 025 Discontin ued(Alter julia therapy) tirzepatide, weight loss, (Zepbound) 12.5 mg/0.5 mL pen injectorIndicati ons:Class 3 severe obesity due to excess calories with serious comorbidity and body mass index (BMI) of 40.0 to 44.9 in adult Inject 0.5 mL (12.5 mg total) under the skin every 7 days 2 mL 1 11/07/19 25 025 Discontin ued(Other ) tirzepatide, weight loss, (Zepbound) 15 mg/0.5 mL pen injectorIndicati ons:Class 3 severe obesity due to excess calories with serious comorbidity and body mass index (BMI) of 40.0 to 44.9 in adult Inject 0.5 mL (15 mg total) under the skin every 7 days 2 mL 1 12/11/19 25 025 Discontin ued(Formerly [facility]) Hospital, Clinic, or Other Facility Administered Medication Ordered Dose Route Frequency Start Date End Date Status etonogestreL (NEXPLANON) implant 68 mgIndications:Pregna ncy Contraception 68 mg subderm Continuous (implanted device) 06/14/2024 06/14/2027 Active Active Problems Problem Noted Date Diagnosed Date Endometriosis 12/03/2024 Chronic pelvic pain in female 12/03/2024 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 Vestibular migraine 01/16/2024 Adenoma of left adrenal gland 12/19/2023 Multiple thyroid nodules 12/19/2023 Primary hypertension 12/19/2023 Onychomycosis 11/25/2022 Plantar fasciitis 12/05/2020 Immunizations Immunization Administration Dates Next Due HPV9 12/11/2024,08/23/2024,06/14/2024 Social History Tobacco Use Types Packs/Day Years Used Date Smoking Tobacco: Former Cigarettes 1 13 0 11/24/2000 - 11/24/2013 E-cigarettes Vaping Smokeless Tobacco: Never Tobacco Cessation:Counseling Given: Not Answered Alcohol Use Standard Drinks/Week Comments Yes 0 (1 standard drink = 0.6 oz pur e alcohol) AUDIT-C Answer Date Recorded Q1: How often do you have a drink containing alc ohol? Monthly or less 12/16/2024 Q2: How many drinks containi ng alcohol do you have on a typical day when you are drinking? 1 or 2 12/16/2024 Q3: How often do you have si x or more drinks on one occasion? 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 on file Not on file Not on file Last Filed Vital Signs Vital Sign Reading Time Taken Comments Blood Pressure 151/100 12/16/2024 4:00 PM CDT Pulse 94 12/16/2024 4:00 PM CDT Temperature 36.5 C (97.7 F) 12/16/2024 2:31 PM CDT Respiratory Rate 12 12/16/2024 3:50 PM CDT Oxygen Saturation 95% 12/16/2024 4:00 PM CDT Inhaled Oxygen Concentration - - Weight 92.5 kg (204 lb) 12/16/2024 2:31 PM CDT Height 162.6 cm (5' 4) 12/16/2024 2:31 PM CDT Body Mass Index 35.02 12/16/2024 2:31 PM CDT Plan of Treatment Upcoming Encounters Date Type Department Care Team (Late st Contact Info) Description 02/28/2025 11:30 AM CDT Hospital Encounter [facility] Operating Room 1 [place] [address] Kacey Jean MD [address] [facility] [phone] [place], [place] [phone] 02/28/2025 11:30 AM CDT - 02/28/2025 3:25 PM CDT Surgery [facility] Operating Room 1 [place] [address] Kacey Jean MD [address] [facility] [phone] [place] [address] CYSTOSCOPY Scheduled Procedures Name Priority Associated Diagnoses [...] pain in female 02/28/2025 11:30 AM CDT Goals Goal Patient Goal Type Associated Problems Recent Progress Patient-Stated? Author CCM Chronic Pain Care Plan Chronic Care Management On track(11/25 2:39 PM CDT) No Karina Bennett, KAI Note: Problem: Chronic Pain Goals: 1. Minimize further functional decline 2. Maximize quality of life 3. Control pain Strategies: - Activity/exercise program recommendation - Conservative stepwise pain medicine strategy with multi-disciplinary approach - Recommend healthy lifestyle strategies and compensatory methods as needed Reduce the likelihood of falling Lifestyle Improving( 10/25/2024 9:47 AM CDT) No Nathalia Norton RN [...] programs, or options for improving home safety. Autogenerated Goal Care Plan Autogenerated Problem No Jose Pompa RN Medical Devices Implanted Type Area Credit Verification Clerk Device Identifier Shelf Expiration Date Model / Serial / Lot Neurostimulator- Implanted: 022 by Unknown, Notinfile (Quantity not on file) Neurostimulator Pelvis Medtronic Neuro INTERSTIM [id number] / / Neurostimulator Lead-12/28/2021 Implanted: 022 by Unknown, Notinfile (Quantity not on file) Neurostimulator Pelvis Medtronic Neuro [id number] / / Explanted Type Area Credit Verification Clerk Device Identifier Shelf Expiration Date Model / Serial / Lot [employer] Kit Sprint Percutaneous Electrical Nerve Stimulation [id number] - [id number] Implanted:Qty: 1 on 04/26/2023 by Alie Rosas MD at [facility] 4 Explanted: 023 by Alie Rosas MD (Quantity not on file) Lead [employer] 06/07/2024 [id number] / / [employer] System Nerve Stimulator Peripheral Single Lead Sprint Endura [id number] - [id number] - [id number] Implanted:Qty: 1 on 04/14/2023 by Alie Rosas MD at [facility] 4 Explanted: 023 by Alie Rosas MD (Quantity not on file) [employer] 03/02/2024 [id number] 1 / [id number] / [id number] Procedures Procedure Name Priority Date/Time Associated Diagnosis Comments PAIN MGMT IMAGING SI JOINT BILATERAL ARTHROGRPHY Schedule Routine, Read Routine (OP Routine) 12/16/2024 3:57 PM CDT Sacroiliitis PAIN MGMT IMAGING PUDENDAL NERVE BLOCK Schedule Routine, Read Routine (OP Routine) 10/25/2024 10:48 AM CDT Pudendal neuralgia from Last 3 Months Results * Imaging SI Joint Injection Bilateral (28583) (12/16/2024 3:57 PM CDT) Narrative [facility] - 12/16/2024 3:57 PM CDT The images from this study are not interpreted by Radiology. Please refer to the physician's procedure / OR operative note. us Alie Rosas MD IMG PAIN MGMT PROCEDURES Fi nal Result [facility] * Imaging Pudendal Nerve Block (12250) (10/25/2024 10:48 AM CDT) Narrative [facility] - 10/25/2024 10:48 AM CDT The images from this study are not interpreted by Radiology. Please refer to the physician's procedure / OR operative note. us Alie Rosas MD IMG PAIN MGMT PROCEDURES Fi nal Result [facility] from Last 3 Months Additional Health Concerns Active Problems Noted Date Diagnosed Date Autogenerated Problem 12/23/2024 Insurance IDPA [facility] IDPA [facility] [id number] [facility] [id number] IDPA Advance Directives For more information, please contact: [phone] * Full Code (Latest Code Status on File) Date Activated Date Inactivated Comments 11/04/2022 9:54 AM 11/04/2022 2:51 PM Care Teams Agency Cashier Relationship Specialty Start Date End Date Bernabe Shore MD [address] [address] PCP - General Family Medicine 07/24/23 Bernabe Shore MD [address] [address] 07/24/23 Ole Hodge MD [address] [place] [address] 03/15/18 Nahtalia Ba MD [address] [place] [address] Referring Physician Ophthalmology 10/25/22 Dandy Ji MD 2 [place] [address] Neurologist Neurology 10/25/22 Milagro Beauchamp MD 2 [place] [address] Neurologist Neurology 10/25/22 Familia Painting MD [address] [place] [address] Consulting Physician Rheumatology 10/25/22 Emi Anderson MD [address] [place] [phone] Surgeon Orthopedic Surgery 11/04/22 Rocio Mata DPT [address] [facility] [address] [place] [address] Physical Therapist Physical Therapy 10/17/24
--- OUTSIDE RECORDS SUMMARY | 2024-12-26 16:29 | XMS_ITS | Clinical Summary ---
Author Organization [facility] Address [address] [place] [address] Care Team Providers Care Magazine Keeper Name Role Phone Bernabe Shore MD Primary Care Provider [phone] Bernabe Shore MD Unavailable [phone] Ole Hodge MD Unavailable [phone] Nathalia Ba MD Unavailable [phone] Dandy Ji MD Unavailable Mliagro Beauchamp MD Unavailable [phone] Familia Painting MD Unavailable [phone] Emi Anderson MD Unavailable [phone] Rocio Mata DPT Unavailable [phone] Allergies Active Allergy Reactions Criticality Noted Date [...] by mouth daily 07/05/19 22 Active dg orona-phsal-hyo 118-10-40.8-36 mg capsule Take 1 capsule by mouth 3 (three) times a day 10/14/19 22 Active EPINEPHrine 0.3 mg/0.3 mL auto-injection syringe as needed for anaphylaxis Active olopatadine 0.6 % spray,non-aeroso l 05/29/20 22 Active montelukast (SINGULAIR) 10 mg tablet 06/09/20 21 Active olopatadine (PATADAY) 0.2 % ophthalmic solution 06/09/20 21 Active levomefolate-B6- jnB78-avkha oil (METANX) 3 mg-35 mg-2 mg -90.314 [...] 2 mL 1 12/11/19 25 025 Discontin ued(Reord er) Hospital, Clinic, or Other Facility Administered Medication [...] hypertension 12/19/2023 Onychomycosis 11/25/2022 Plantar fasciitis 12/05/2020 Encounters Date Type Department Care Team Description 12/17/2024 3:45 PM CDT Therapy [facility] [address] [place] [address] Rocio Mata DPT Neck pain (Primary Dx) 12/16/2024 1:58 PM CDT - 12/16/2024 11:59 PM CDT Hospital Encounter [facility] [address] [facility] [address] [place] [address] Alie Rosas MD Sacroiliitis Discharge Disposition: Discharge to home or self care 12/12/2024 Telephone [facility] [address] [facility] [address] [place] [address] Alie Rosas MD [facility] Preprocedure 12/11/2024 2:30 PM CDT Office Visit [facility] Obstetrics and Gynecology [address] [place] [address] 7th Floor [address] [place] [address] 7, Ob [facility] Provider 2 [facility] HPV vaccine counseling (Primary Dx); Low libido; Perimenopausal symptoms 12/04/2024 9:30 AM CDT Therapy [facility] [address] [place] [address] Kalie Hicks PTA Neck pain (Primary Dx) 12/03/2024 11:00 AM CDT Office Visit [facility] Minimally Invasive Surgery [address] [facility] 7th Floor [address] [place] [id number] Kacey Jean MD Chronic pelvic pain in female (Primary Dx); Endometriosis; Family history of breast cancer 12/03/2024 Orders Only [facility] Obstetrics and Gynecology [address] [facility] 7th Floor [address] [place] [phone] Rich Jeter RN Premature menopause (Primary Dx) 12/03/2024 Orders Only [facility] [address] [facility] [address] [place] [address] Alie Rosas MD Cervical pain (neck) (Primary Dx) 11/29/2024 3:15 PM CDT Office Visit [facility] Obstetrics and Gynecology [address] [facility] 1st Floor [address] [place] [address] Farnaz Cheung MD Premature menopause (Primary Dx); Perimenopausal symptoms 11/29/2024 12:30 PM CDT Therapy [facility] Physical Therapy [address] [place] [address] [address] [place] [address] Kalie Hicks PTA Neck pain (Primary Dx) 11/29/2024 Telephone [facility] [address] [facility] [address] [place] [address] Alie Rosas MD PMC Preprocedure 11/26/2024 11:00 AM CDT Therapy [facility] Physical Therapy [address] [facility] 1st Floor [address] [place] [phone] Monse Jackson DPT Other chronic pain (Primary Dx); Endometriosis; Urinary incontinence, unspecified type 11/14/2024 10:45 AM CDT Therapy [facility] Physical Therapy [address] [facility] [address] [place] [address] Kalie Hicks PTA Neck pain (Primary Dx) 11/13/2024 10:15 AM CDT Office Visit [facility] Pain Management [address] [facility] 14th [place] [address] [place] [address] Sameera Dangelo, PhD Trauma and stressor-related disorder (Primary Dx); Other chronic pain 11/07/2024 3:00 PM CDT Therapy [facility] [address] [place] [address] Rocio Mata, DPJackson Neck pain (Primary Dx) 11/07/2024 Orders Only [facility] Advanced Medicine [address] [place] [address] Alie Rosas MD Sacroiliitis (Primary Dx) 10/31/2024 11:00 AM CDT Therapy [facility] Physical Therapy [address] [place] [address] [address] [place] [address] Kalie Hicks PTA Neck pain (Primary Dx) 10/29/2024 Plan of Care Documentation [facility] Physical Therapy [address] [place] [address] Floor [address] [place] [address] 10/28/2024 10:00 AM CDT Therapy [facility] Physical Therapy [address] [place] [address] [address] [place] [address] Mnose Jackson, DPJackson Other chronic pain (Primary Dx); Endometriosis; Urinary incontinence, unspecified type 10/25/2024 9:28 AM CDT - 10/25/2024 11:59 PM CDT Hospital Encounter [facility] [address] [place] [address] [facility] [address] [place] [address] Alie Rosas MD Neuralgia of both pudendal nerves (Primary Dx); Pudendal neuralgia Discharge Disposition: Discharge to home or self care 10/23/2024 1:30 PM CDT Therapy [facility] Physical Therapy [address] [place] [address] [address] [place] [address] Kalie Hicks PTA Neck pain (Primary Dx) 10/23/2024 Telephone [facility] [address] [place] [address] Advanced Medicine [address] [place] [address] Alie Rosas MD PMC Preprocedure 10/22/2024 Telephone [facility] [address] [place] [address] Advanced Medicine [address] [place] [address] Alie Rosas MD PMC Preprocedure 10/17/2024 10:30 AM CDT Therapy [facility] Physical Therapy [address] [place] [address] Rocio Mata DPT Neck pain (Primary Dx) 10/17/2024 Plan of Care Documentation [facility] Physical Therapy [address] [place] [address] 10/11/2024 Orders Only [facility] [address] [facility] [address] [place] [address] Alie Rosas MD Pudendal neuralgia (Primary Dx) 10/09/2024 1:45 PM CDT Therapy [facility] Physical Therapy [address] [place] [address] Kalie Hicks PTA Neck pain (Primary Dx) from Last 3 Months Immunizations Immunization Administration Dates Next Due HPV9 12/11/2024,08/23/2024,06/14/2024 Surgical History Surgery Date Site/Laterality Comments SECTION CHOLECYSTECTOMY 2013 ABDOMINAL ADHESION SURGERY CYSTOSCOPY OTHER SURGICAL HISTORY neuro stimulator BLADDER SURGERY 2016, 2021 CARPAL TUNNEL RELEASE Left LUMBAR PUNCTURE WO INJECTION , DIAGNOSTIC 09/02/2022 N/A Medical History Medical History Date Comments Back pain Leg pain Vulvar pain Hypertension Difficult or painful urination Arthritis Endometriosis Interstitial cystitis Sleep apnea PONV (postoperative nausea and vomiting) High cholesterol no meds Tachycardia GERD (gastroesophageal reflux disease) History of gastric ulcer Irritable bowel syndrome Goiter Small fiber neuropathy Migraines Anemia occasionally Eczema Polycystic ovary syndrome Fibroids Optic papilla edema Anxiety 1998 Depression 2001 Dysmenorrhea 1992 Autoimmune disease 1999 Menstrual problem 1992 Low back pain Low back pain Buttock pain Family History Medical History Relation Name Comments Alcohol abuse Father Jarett Diabetes Father's Brother Nathan Colon cancer Maternal Grandfather Cristhian Hypertension Maternal Grandfather Cristhian Arthritis Maternal Grandmother Amelia Cancer Maternal Grandmother Amelia Clotting disorder Maternal Grandmother Amelia Hypertension Maternal Grandmother Amelia Stroke Maternal Grandmother Amelia Arthritis Mother Marycruz COPD Mother Marycruz Early Mother Marycruz Hyperlipidemia Mother Marycruz Hypertension Mother Marycruz Kidney disease Mother Marycruz Miscarriages / Stillbirths Mother's Sister Precious Breast cancer Other Alzheimer's disease Paternal Grandmother Yoanna Diabetes Paternal Grandmother Yoanna Asthma Son Mic Relation Name Status Comments Father Jarett Father's Brother Nathan Maternal Grandfather Cristhian Maternal Grandmother Amelia Mother Marycruz Mother's Sister Precious Other Paternal Grandmother Yoanna Son Mic Alive Social History Tobacco Use Types Packs/Day Years [...] on file Legal Sex Female 3:22 AM MARKET RESEARCH ASSISTANT Gender Identity Female 11/21/2020 10:51 AM CDT Sexual Orientation Bisexual 08/16/2024 10 :11 AM MARKET RESEARCH ASSISTANT 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 Not on file Not on file Not on file Obstetrics History Para Term AB IAB SAB Ectopic Multiple Livin g Live Births 3 2 1 1 1 1 2 2 Date Outcome GA Total Labor Labor/2nd/3rd Weight Sex Type Anes PTL Jonna A1 A5 Name Clin 2012 SAB Demise 2015 M C-Sec tion Living 2018 Term F C-Sec tion Living Last Filed Vital Signs Vital Sign Reading [...] Description 02/28/2025 11:30 AM CDT Hospital Encounter [facility] Operating Room [address] [place] [address] Kacey Jean MD [address] [facility] [phone] [place] [address] 02/28/2025 11:30 AM CDT - 02/28/2025 3:25 PM CDT Surgery [facility] Operating Room [address] [place] [address] Kacey Jean MD [address] [facility] [phone] [place] [address] CYSTOSCOPY Scheduled Procedures Name Priority Associated Diagnoses [...] pain in female 02/28/2025 11:30 AM CDT Health Maintenance Due Date Last Done Comments Breast Cancer Screening-Mammogram 1982 Cervical Cancer Screening 1982 Depression Screening 1982 Hepatitis C Screening 1982 Varicella Vaccines (1 of 2 - 13+ 2-dose series) 10/14/1995 Hepatitis B Screening 2000 Regular Well Visit/Exam 18-64 2000 Covid-19 Vaccine ( season) 2024 05/07/2021, 10/01/2020 Influenza Vaccine (#1) 2025 , 03/15/2022, 03/15/2021, Additional history exists DTaP/Tdap/Td Vaccine (2 - Td or Tdap) 03/28/2027 03/28/2017 Pneumococcal vaccine <65 Aged Out 05/26/2012 No longer eligible based on patient's age to complete this topic HPV Vaccines Completed 12/11/2024, 07/28, 06/14/2024 Goals Goal Patient Goal Type Associated Problems Recent Progress Patient-Stated? Author CCM Chronic Pain Care Plan Chronic Care Management On track(11/25 2:39 PM CDT) No Karina Bennett, RN Note: Problem: Chronic Pain Goals: 1. Minimize [...] on stairs Contact your local community or [facility] for information on exercise, fall prevention programs, or options for improving home safety. Autogenerated Goal Care Plan Autogenerated Problem No Jose Pompa RN Medical Devices Implanted Type Area Sales Rep Device Identifier Shelf Expiration Date Model / Serial / Lot Neurostimulator- Implanted: 022 by Unknown, Notinfile (Quantity not on file) Neurostimulator Pelvis Medtronic Neuro INTERSTIM [id number] / / Neurostimulator Lead-12/28/2021 Implanted: 022 by Unknown, Notinfile (Quantity not on file) Neurostimulator Pelvis Medtronic Neuro [id number] / / Explanted Type Area Sales Rep Device Identifier Shelf Expiration Date Model / Serial / Lot Spr Therapeutics Kit Sprint Percutaneous Electrical Nerve Stimulation [id number] - [id number] Implanted:Qty: 1 on 04/26/2023 by Alie Rosas MD at [facility] 4 Explanted: 023 by Alie Rosas MD (Quantity not on file) Lead [employer] 06/07/2024 9244-600 1B / / Spr Therapeutics System Nerve Stimulator Peripheral Single Lead Sprint Endura [id number] - [id number] - [id number] Implanted:Qty: 1 on 04/14/2023 by Alie Rosas MD at [facility] 4 Explanted: 023 by Alie Rosas MD (Quantity not on file) [employer] 03/02/2024 9244-600 1 / [id number] / [id number] Procedures Procedure Name Priority Date/Time Associated Diagnosis Comments PAIN MGMT IMAGING SI JOINT BILATERAL ARTHROGRPHY Schedule Routine, Read Routine (OP Routine) 12/16/2024 3:57 PM CDT Sacroiliitis PAIN MGMT IMAGING PUDENDAL NERVE BLOCK Schedule Routine, Read Routine (OP Routine) 10/25/2024 10:48 AM CDT Pudendal neuralgia from Last 3 Months Results * Imaging SI Joint Injection Bilateral (48412) (12/16/2024 3:57 PM CDT) Narrative [facility] - 12/16/2024 3:57 PM CDT The images from this study are not interpreted by Radiology. Please refer to the physician's procedure / OR operative note. Alie Rosas MD IMG PAIN MGMT PROCEDURES Fi nal Result Performing Organization Address [facility] de Phone Number [facility] * Imaging Pudendal Nerve Block (70977) (10/25/2024 10:48 AM CDT) Narrative [facility] - 10/25/2024 10:48 AM CDT The images from this study are not interpreted by Radiology. Please refer to the physician's procedure / OR operative note. Alie Rosas MD [place] PAIN MGMT PROCEDURES Fi nal Result Performing Organization Address [facility] Phone Number [facility] from Last 3 Months Additional Health Concerns Active Problems Noted Date Diagnosed Date Autogenerated Problem 12/23/2024 Insurance IDPA [facility] IDPA [facility] [id number] [facility] [id number] IDPA Advance Directives For more information, please contact: [phone] * Full Code (Latest Code Status on File) Date Activated Date Inactivated Comments 11/04/2022 9:54 AM 11/04/2022 2:51 PM Care Teams Magazine Keeper Relationship Specialty Start Date End Date Bernabe Shore MD 2 [facility] [address] [place] [address] PCP - General Family Medicine 07/24/23 Bernabe Shore MD 2 [facility] [address] [place] [address] 07/24/23 Ole Hodge MD [address] [place] [address] 03/15/18 Nathalia Ba MD [address] [place] [address] Referring Physician Ophthalmology 10/25/22 Dandy Ji MD [address] [place] [address] Neurologist Neurology 10/25/22 Milagro Beauchamp MD [address] [place] [address] Neurologist Neurology 10/25/22 Familia Painting MD [address] [place] [address] Consulting Physician Rheumatology 10/25/22 Emi Anderson MD [address] [place] [address] Surgeon Orthopedic Surgery 11/04/22 Rocio Mata DPT [address] [facility] [address] [place] [address] Physical Therapist Physical Therapy 10/17/24
--- OUTSIDE RECORDS SUMMARY | 2024-12-26 16:29 | XMS_ITS | Encounter Summary ---
Author Organization [facility] Address [address] [place] [address] Phone Care Team Providers Care Felt Hanger Name Role Phone Bernabe Shore MD Primary Care Provider Ole Ryder MD Unavailable [phone] Dandy Ji MD Unavailable Jordan Rocha MD Unavailable [phone] Princess Diop RN Unavailable UnavailJoan Mars APRN, COURTESY BUS DRIVER Unavailable [phone] Reason for Visit * Reason Comments Medication Refill Encounter Details Date Type Department Care Team (Late st Contact Info) Description 03/15/2021 Refill [facility] - Family Medicine [facility] [address] [place] [address] Bernabe Shore MD [address] [address] Medication Refill Social History Tobacco Use Types Packs/Day Years Used Date Smoking Tobacco: Former Cigarettes 1 13 0 09/15/2000 - 09/15/2013 Smokeless Tobacco: Never Alcohol Use Standard Drinks/Week Comments No 0 (1 standard drink = 0.6 oz pur e alcohol) socially PHQ-2 Answer Date Recorded Total Score - Questions 1-9 0 11/25 Education Answer Date Recorded What is the highest level of school you have completed or the highest degree you have received? Associate degree: academic program 10/23/2020 Sexually Active Control Partners Comments Yes Male Comments No Sex and Gender Information Value Date Recorded Sex Assigned at Not on file Legal Sex Female 10:41 PM CDT Gender Identity Not on file Sexual Orientation Not on file COVID-19 Exposure Response Date Recorded In the last month, have you been in contact with someone who was confirmed or suspected to have Coronavirus / COVID-19? No / Unsure 03/15/2021 10:39 AM CDT documented as of this encounter Miscellaneous Notes * Telephone Encounter - Bernabe Shore MD - 03/15/2021 3:59 PM CDT Prescription approved. Please call in * Telephone Encounter - Meredith Yao RN - 03/15/2021 3:25 PM CDT Medication failed the protocol, provider to review and approve the medication order if appropriate. Requested Prescriptions Pending Prescriptions Disp Refills buPROPion (WELLBUTRIN) 150 MG XL tablet [Pharmacy Med Name: BUPROPION HCL XL 150 MG TABLET] 90 Tablet 1 Sig: TAKE 1 TABLET BY MOUTH EVERY MORNING. Bupropion (6 Month Refill Only) Protocol Failed - 03/15/2021 12:01 AM Failed - Patient has established therapy with Bupropion for at least 6 months Passed - No test in the past 12 months or most recent test was negative Passed - No active on record Passed - Visit with relevant provider in past 6 months or upcoming 90 days Recent Visits Date Type Provider Dept 01/20/21 Office Visit Bernabe Shore MD [facility] 12/22/20 Office Visit Bernabe Shore MD [facility] 12/03/20 Office Visit Bernabe Shore MD [facility] 10/26/20 Office Visit Michelle Zurita APN, DOLL W[employer] HACKLER [facility] Showing recent visits within past 182 days and meeting all other requirements Today's Visits Date Type Provider Dept 03/15/21 Office Visit Bernabe Sohre MD [facility] Showing today's visits and meeting all other requirements Future Appointments No visits were found meeting these conditions. Showing future appointments within next 90 days and meeting all other requirements Passed - Has an encounter in the past 6 months with a depression or anxiety visit diagnosis documented in this encounter Plan of Treatment Upcoming Encounters Date Type Department Care Team (Late st Contact Info) Description 02/10/2025 11:00 AM CDT Telemedicine [facility] - [place] [address] [place] [address] Joan Pedraza APRN, COURTESY BUS DRIVER [address] [place] [address] 03/28/2025 9:30 AM CDT Procedure Visit [facility] [address] [place] [address] Dandy Ji MD [address] [place] [address] 04/07/2025 10:45 AM CDT Office Visit [facility] Family Medicine [facility] [address] [place] [address] Bernabe Shore MD [address] [address] documented as of this encounter Visit Diagnoses Not on filedocumented in this encounter Additional Health Concerns Infection Onset Date Last Indicated Resolved Time COVID - 19 04/29/2022 04/29/2022 05/09/2022 12:1 6 AM HAND CUTTER COVID - 19 06/16/2023 06/16/2023 06/26/2023 12:1 6 AM HAND CUTTER Assessment Noted Time PHQ-9 Depression Total Score: 0 12/23/19 11:31 AM CDT documented as of this encounter Care Teams Felt Hanger Relationship Specialty Start Date End Date Bernabe Shore MD [address] [facility] [address] [place] [address] PCP - General Family Medicine 08/28/15 Ole Ryder MD [address] [place], [place] [id number] Obstetrics & Gynecology 03/28/17 Dandy Ji MD [address] [place] [address] Consulting Physician Neurology 09/14/21 Jordan Rocha MD [address] [place] [address] Internal Medicine 04/13/24 Princess Diop, RN [place] [employer] Supervisor 05/02/24 05/02/24 Joan Pedraza APRN, COURTESY BUS DRIVER [address] [place] [address] Nurse Practitioner Advanced Practice Nurse 08/13/24 documented as of this encounter
--- OUTSIDE RECORDS SUMMARY | 2024-12-26 16:29 | XMS_ITS | Encounter Summary ---
Author Organization [facility] Address [address] [place] [address] Phone Care Team Providers Care Stretcher And Drier Name Role Phone Bernabe Shore MD Primary Care Provider [phone] Ole Ryder MD Unavailable [phone] Dandy Ji MD Unavailable Jordan Rocha MD Unavailable [phone] Princess Diop RN Unavailable UnavailJoan Mars APRN, TRANSPORT AIDE Unavailable [phone] Reason for Visit * Reason Comments Medication Refill Encounter Details Date Type Department Care Team (Late st Contact Info) Description 09/17/2023 Refill [facility] - Family Medicine [facility] #2 [place] [address] Bernabe Shore MD #[address] [address] Medication Refill Social History Tobacco Use Types [...] encounter Miscellaneous Notes * Telephone Encounter - Deja Rodriguez RN - 09/17/2023 3:47 PM CDT Medication(s) refilled and signed per [facility] Chronic Medication Refill Standing Order for Pediatricand Adult Patients. Requested Prescriptions Pending Prescriptions Disp Refills spironolactone (ALDACTONE) 50 MG Tablet [Pharmacy Med Name: SPIRONOLACTONE 50 MG TABLET] 180 Tablet Sig: TAKE 1 TABLET BY MOUTH IN THE MORNING AND IN THE EVENING Diuretics Protocol Passed - 09/17/2023 12:31 AM Passed - Serum potassium on record in past 12 months POTASSIUM Date Value Ref Range Status 12/01/2022 4.0 3.5 - 5.1 mmol/L Final Passed - Serum sodium on record in past 12 months SODIUM Date Value Ref Range Status 12/01/2022 140 136 - 144 mmol/L Final Passed - Blood pressure on record in past 12 months Clinician-entered: BP Readings from Last 3 Encounters: 06/16/23 122/80 05/01/23 122/78 04/03/23 134/88 Patient-entered: No data recorded Passed - Visit with relevant provider in past 12 months or upcoming 90 days Recent Visits Date Type Provider Dept 04/03/23 Office Visit Michelle Zurita APRN, [facility] 12/01/22 Office Visit Bernabe Shore MD [facility] Showing recent visits within past 365 days and meeting all other requirements Future Appointments No visits were found meeting these conditions. Showing future appointments within next 90 days and meeting all other requirements Passed - GFR on record in past 12 months GFR, EST. NONAFRICAN Date Value Ref Range Status 12/01/2022 >60 >=60 Final documented in this encounter Plan of Treatment Upcoming Encounters Date Type Department Care Team (Late st Contact Info) Description 02/10/2025 11:00 AM CDT Telemedicine [facility] Neurology [facility] #2 [facility] [place] [address] Joan Pedraza, PROFESSOR COMPUTER SCIENCE, TRANSPORT AIDE #2 [facility] [address] 03/28/2025 9:30 AM CDT Procedure Visit [facility] Neurology [facility] #2 [facility] [place] [address] Dandy Ji MD #2 [place] [address] 04/07/2025 10:45 AM CDT Office Visit [facility] Family Medicine [facility] #2 [facility] [place] [address] Bernabe Shore MD #[address] [place] [address] documented as of this encounter Goals Goal Patient Goal Type Associated Problems Recent Progress Patient-Stated? Author Chronic Disease Management Chronic Disease Management On track(2023 1:33 PM CHANGE CONTROL MANAGER) Candy Vargas RN Note: To effectively check in with [facility] On[employer]'s Remote Patient Monitoring Hypertension program via text on Monday at 5:00* pm. documented as of this encounter Visit Diagnoses Not on filedocumented in this encounter Additional Health Concerns Assessment Noted Time PHQ-9 Depression Total Score: 0 11/16/19 10:24 AM CDT documented as of this encounter Care Teams Stretcher And Drier Relationship Specialty Start Date End Date Bernabe Shore MD #2 [facility] [address] [place] [address] PCP - General Family Medicine 08/28/15 Ole Ryder MD [address] [place] [address] Obstetrics & Gynecology 03/28/17 Dandy Ji MD #2 [place] [address] Consulting Physician Neurology 09/14/21 Jordan Rocha MD [address] [place] [address] Internal Medicine 04/13/24 Princess Diop RN [place] On[employer] Laborer High Density Press 05/02/24 05/02/24 Joan Pedraza APRN, TRANSPORT AIDE #2 [place] [address] Nurse Practitioner Advanced Practice Nurse 08/13/24 documented as of this encounter
--- OUTSIDE RECORDS SUMMARY | 2024-12-26 16:29 | XMS_ITS | Encounter Summary ---
Author Organization [facility] Address [address] [place] [address] Phone Care Team Providers Care Cloth Colorer Name Role Phone Bernabe Shore MD Primary Care Provider Ole Ryder MD Unavailable [phone] Dandy Ji MD Unavailable Jordan Rocha MD Unavailable [phone] Princess Diop RN Unavailable UnavailJoan Mars APRN, HYBRID CAR MECHANIC Unavailable [phone] Reason for Visit * Reason Comments Medication Refill Encounter Details Date Type Department Care Team (Late st Contact Info) Description 02/24/2021 Refill [facility] #2 [place] [address] Bernabe Shore MD #[address] [address] Medication Refill Social History Tobacco Use Types [...] have Coronavirus / COVID-19? No / Unsure 02/06/2021 12:51 PM CDT documented as of this encounter Miscellaneous Notes * Telephone Encounter - Maria R Maldonado RN - 02/25/2021 1:39 PM CDT The original prescription was discontinued on 12/21/2020 by Celestina Terrell MD for the followingreason: Med List Clean Up documented in this encounter Plan of Treatment Upcoming Encounters Date Type Department Care Team (Late st Contact Info) Description 02/10/2025 11:[address] [facility] Neurology [facility] #2 [place] [address] Joan Pedraza APRN, HYBRID CAR MECHANIC #2 [place] [address] 03/28/2025 9:30 AM CDT Procedure Visit [facility] Neurology [facility] #2 [facility] [place] [address] Dandy Ji MD #2 [place] [address] 04/07/2025 10:45 AM CDT Office Visit [facility] Family Medicine [facility] #2 [facility] [place] [address] Bernabe Shore MD #2 [facility] [place] [address] documented as of this encounter Visit Diagnoses Not on filedocumented in this encounter Additional Health Concerns Infection Onset Date Last Indicated Resolved Time COVID - 19 04/29/2022 04/29/2022 05/09/2022 12:1 6 AM CYBER INCIDENT RESPONDER COVID - 19 06/16/2023 06/16/2023 06/26/2023 12:1 6 AM CYBER INCIDENT RESPONDER Assessment Noted Time PHQ-9 Depression Total Score: 0 12/23/19 21 11:31 AM CDT documented as of this encounter Care Teams Cloth Colorer Relationship Specialty Start Date End Date Bernabe Shore MD #2 [facility] [place] [address] PCP - General Family Medicine 08/28/15 Ole Ryder MD [address] [place] [address] Obstetrics & Gynecology 03/28/17 Dandy Ji MD #2 [place] [address] Consulting Physician Neurology 09/14/21 Jordan Rocha MD 1 [place] [address] Internal Medicine 04/13/24 Princess Diop RN [place] On[employer] Survey Project Manager 05/02/24 05/02/24 Joan Pedraza APRN, HYBRID CAR MECHANIC #2 [place] [address] Nurse Practitioner Advanced Practice Nurse 08/13/24 documented as of this encounter
--- OUTSIDE RECORDS SUMMARY | 2024-12-26 16:29 | XMS_ITS | Encounter Summary ---
Author Organization [facility] Address [address] [place] [address] Phone Care Team Providers Care Cigarette Carton Sealer Name Role Phone Bernabe Shore MD Primary Care Provider Ole Ryder MD Unavailable [phone] Dandy Ji MD Unavailable Jordan Rocha MD Unavailable [phone] Princess Diop RN Unavailable UnavailJoan Mars APRN, FURNITURE REPAIR TECHNICIAN Unavailable [phone] Reason for Visit * Reason Comments Medication Refill Encounter Details Date Type Department Care Team (Late st Contact Info) Description 06/16/2022 Refill [facility] - Neurology [facility] #2 [place] [address] Dandy Ji MD #2 [place] [address] Medication Refill Social History Tobacco Use Types [...] Description 02/10/2025 11:00 AM CDT [facility] #2 [place] [address] Joan Pedraza APRN, FURNITURE REPAIR TECHNICIAN #2 [place] [address] 03/28/2025 9:30 AM CDT Procedure Visit [facility] #2 [place] [address] Dandy Ji MD #2 [place] [address] 04/07/2025 10:45 AM CDT Office Visit [facility] Family Medicine [facility] #2 [place] [address] Bernabe Shore MD #[address] [address] documented as of this encounter Visit Diagnoses Not on filedocumented in this encounter Additional Health Concerns Infection Onset Date Last Indicated Resolved Time COVID - 19 06/16/2023 06/16/2023 06/26/2023 12:1 6 AM DRILLING CONTRACTOR Assessment Noted Time PHQ-9 Depression Total Score: 0 11/16/19 10:24 AM CDT documented as of this encounter Care Teams Cigarette Carton Sealer Relationship Specialty Start Date End Date Bernabe Shore MD #2 [facility] [address] [place] [address] PCP - General Family Medicine 08/28/15 Ole Ryder MD [address] [facility] [address] [place] [address] Obstetrics & Gynecology 03/28/17 Dandy Ji MD #2 [place] [address] Consulting Physician Neurology 09/14/21 Jordan Rocha MD 1 [place] [address] Internal Medicine 04/13/24 Princess Diop RN [place] On[employer] Superintendent Menagerie 05/02/24 05/02/24 Joan Pedraza, BAND BUILDER, FURNITURE REPAIR TECHNICIAN #2 [place] [address] Nurse Practitioner Advanced Practice Nurse 08/13/24 documented as of this encounter
--- OUTSIDE RECORDS SUMMARY | 2024-12-26 16:29 | XMS_ITS | Encounter Summary ---
Author Organization [facility] Address [address] [place] [address] Care Team Providers Care Chief Meter Reader Name Role Phone Ole Hodge MD Unavailable [phone] Bernabe Shore MD Primary Care Provider [phone] Familia Painting MD Unavailable Reason for Referral * PT/OT/ST (Routine) - Closed Specialty Diagnoses / Procedures Referred By Contgabriel t Referred To Contact Diagnoses Pelvic pain Lanie Russell MD [address] [place] [address] Phone: tel: fax: Referral ID Status Reason Start Date Expiration Date V isits Requested Visits Authorized [id number] Closed Specialty Services Required 06/17/2021 06/17/2022 1 1 Scheduling Instructions Pelvic floor physical therapy for pelvic pain AL EDUCATOR Reason for Visit * Reason Onset Date Comments Insurance Issue/question 06/16/2021 Encounter Details Date Type Department Care Team (Late st Contact Info) Description 06/16/2021 Telephone [facility] [address] [place] [address] [place] [address] [place] [address] Insurance Issue/question Social History Tobacco Use Types Packs/Day Years Used Date Smoking Tobacco: Former Cigarettes 1 12 0 01/24/2001 - 01/24/2013 Smokeless Tobacco: Never Alcohol Use Standard Drinks/Week Comments Yes 0 (1 standard drink = 0.6 oz pur e alcohol) 1 drink a week Comments No Sex and Gender Information Value Date Recorded Sex Assigned at Female 04/18/2022 6:46 PM CDT Legal Sex Female 5:38 AM VISUAL EDUCATOR Gender Identity Female 04/18/2022 6:46 PM CDT Sexual Orientation Not on file documented as of this encounter Miscellaneous Notes * Telephone Encounter - Wen Cunha RN - 06/17/2021 11:53 AM VISUAL EDUCATOR RN returned call to [facility] physical therapy. No answer, left VM to return administrative office clerk call. Order placed for pelvic floor Pt for dx pelvic pain KAI Horton AL EDUCATOR * Telephone Encounter - Emily Velasco - 06/16/2021 11:34 AM CST Azeb from [facility] Healthcare calling about the Pelvic Floor related results. The insurance won't cover it the way it was coded. Please advise: [phone] AL EDUCATOR documented in this encounter Plan of Treatment Scheduled Referrals Name Type Priority Associated Diagnoses Orde r Schedule Ref to Physical Therapy - [facility] PT Outpatient Referral Routine Pelvic pain Ordered: 06/17/2021 documented as of this encounter Visit Diagnoses Diagnosis Pelvic pain- Primary Unspecified symptom associated with female genital organs documented in this encounter Care Teams Chief Meter Reader Relationship Specialty Start Date End Date Bernabe Shore MD [address] [place] [address] PCP - General 09/06/18 Ole Hodge MD [address] [place] [address] Internal Medicine 03/04/14 Familia Painting MD [address] [address] Hospital Nursing Assistant Rheumatology 03/27/23 documented as of this encounter
--- OUTSIDE RECORDS SUMMARY | 2024-12-26 16:29 | XMS_ITS | Encounter Summary ---
Author Organization [facility] Address [address] [place] [address] Care Team Providers Care Ice Sculptor Name Role Phone Bernabe Shore MD Primary Care Provider [phone] Bernabe Shore MD Unavailable [phone] Ole Hodge MD Unavailable [phone] Nathalia Ba MD Unavailable [phone] Dandy Ji MD Unavailable [phone] Milagro Beauchamp MD Unavailable [phone] Familia Painting MD Unavailable [phone] Emi Anderson MD Unavailable [phone] Rocio Mata DPT Unavailable [phone] Reason for Visit * Reason Onset Date Comments Pre Procedure Instructions 09/11/2024 Encounter Details Date Type Department Care Team (Late st Contact Info) Description 09/11/2024 Telephone [facility] Advanced Medicine [address] [facility] Advanced Medicine [address] [place] [address] Alie Rosas MD [address] [place] [address] Pre Procedure Instructions Social History Tobacco Use Types Packs/Day Years Used Date Smoking Tobacco: Former Cigarettes 1 13 0 11/24/2000 - 11/24/2013 E-cigarettes Vaping Smokeless Tobacco: Never Alcohol Use Standard Drinks/Week Comments Yes 0 (1 standard drink = 0.6 oz pur e alcohol) AUDIT-C Answer Date Recorded Q1: How often do you have a drink containing alc ohol? Monthly or less 08/20/2024 Q2: How many drinks containi ng alcohol do you have on a typical day when you are drinking? 1 or 2 08/20/2024 Q3: How often do you have si x or more drinks on one occasion? Never 08/20/2024 Personal Safety Answer Date Recorded Have you ever been in or are you currently in a harmful physical or emotional relationship or is someone making you feel afraid or unsafe? 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 on file Not on file Not on file documented as of this encounter Plan of Treatment Upcoming Encounters Date Type Department Care Team (Late st Contact Info) Description 02/28/2025 11:30 AM CDT Hospital Encounter [facility] Operating Room [address] [place] [address] Kacey Jean MD [address] [facility] 4010-33-8328 [place], [place] [id number] 02/28/2025 11:30 AM CDT - 02/28/2025 3:25 PM CDT Surgery [facility] Operating Room [address] [place] [address] Kacey Jean MD [address] [facility] 8039-08-1612 [place], [place] [address] CYSTOSCOPY Scheduled Procedures Name Priority Associated Diagnoses [...] track(2024 2:39 PM CDT) No Karina Bennett, RN [...] stairs Contact your local community or senior [place] for information on exercise, fall prevention programs, or options for improving home safety. documented as of this encounter Visit Diagnoses Not on filedocumented in this encounter Care Teams Ice Sculptor Relationship Specialty Start Date End Date Bernabe Shore MD [address] [facility] [address] [place] [address] PCP - General Family Medicine 07/24/23 Bernabe Shore MD [address] [facility] [address] [place] [address] 07/24/23 Ole Hodge MD [address] [place] [address] 03/15/18 Nathalia Ba MD [address] [place] [address] Referring Physician Ophthalmology 10/25/22 Dandy Ji MD 2 [place] [address] Neurologist Neurology 10/25/22 Milagro Beauchamp MD 2 [place] [address] Neurologist Neurology 10/25/22 Familia Painting MD [address] [place] [address] Consulting Physician Rheumatology 10/25/22 Emi Anderson MD [address] [place] [address] Surgeon Orthopedic Surgery 11/04/22 Rocio Mata DPT [address] [place] [address] Physical Therapist Physical Therapy 10/17/24 documented as of this encounter
--- OUTSIDE RECORDS SUMMARY | 2024-12-26 16:29 | XMS_ITS | Patient Health Record ---
Author Organization [facility] & [facility] ([address]) Address [address] [place] [address] Care Team Providers Care Orchard Sprayer Name Role Phone Bernabe Shore Primary Care Provider Arin Lovelace Unavailable [phone] Rigoberto Stephenson Unavailable [phone] Allergies No Known Allergies Results Component Value Reference Range Notes HRT Female Post Pellet w/o T PO Reviewed date:08/05/2024 12:18:28 PM Interpretation: Performing Lab:[facility], [address] [place] [id number], Phone - [phone], Director - Boo Notes/Report: TSH 2.530 0.450-4.500 uIU/mL Triiodothyronine (T3), Free 2.9 2.0-4.4 pg/mL T4,Free(Direct) 1.03 0.82-1.77 ng/dL Testosterone 98 4-50 ng/dL FSH 10.1 Adult Female Range Follicular phase 3.5 - 12.5 Ovulation phase 4.7 - 21.5 Luteal phase 1.7 - 7.7 Postmenopausal 25.8 - 134.8 Estradiol 32.0 Adult Female Range Follicular phase 12.5 - 166.0 Ovulation phase 85.8 - 498.0 Luteal phase 43.8 - 211.0 Postmenopausal <6.0 - 54.7 1st trimester 215.0 - >4300.0 Milana ECLIA methodology Reason For Referral No Information Medications Medication SIG (Take, Route, Frequency, Duration) Notes Start Date End Date Status Auvi-Q 0.3 MG/0.3ML as directed intramuscularly once; Duration: 30 day(s) Active ZYRTEC 10 mg 1 tab(s) orally once a day Active Olopatadine HCl 0.2 % 1 gtt in each affected eye once a day Active TACROLIMUS, TOPICAL 0.1% 1 joss applied topically 2 times a day; Duration: 30 day(s) Active amLODIPine Besylate 5 MG 1 tab(s) orally once a day Not-Taking Spironolactone 50 MG 1 tab(s) orally bid Active NASONEX 50 MCG/INH 2 SPRAY(S) IN EACH NOSTRIL ONCE A DAY *Please review for potential replacement for e-prescription and drug interaction check* Active Uribel 0.12 MG-118 MG-10 MG-36 MG-40.8 MG 1 CAP(S) ORALLY 4 TIMES A DAY *Please review and pick correct strength-formula tion from [employer] options. If intended option is not shown, discontinue and re-order from Quick Search* Active Naltrexone HCl 50 MG 1 tab(s) orally onc e a day Active Fexofenadine HCl 180 MG 1 tab(s) orally once a day Active diazePAM 2 MG 1 tab(s) orally every 8 hours Active OLOPATADINE HYDROCHLORIDE 665 MCG/INH 2 SPRAY(S) INTRANASALLY 2 TIMES A DAY; Duration: 90 DAYS *Please review for potential replacement for e-prescription and drug interaction check* Active ZyrTEC Allergy 10 MG 1 tab(s) orally onc e a day Active Rizatriptan Benzoate 10 MG 1 tab(s) orally once a day Not-Taking Metanx 3-90.314-2-35 MG 1 cap(s) orally once a day Active Tacrolimus 0.1 % 1 joss applied topically 2 times a day; Duration: 30 day(s) Active Venlafaxine HCl 37.5 MG 1 tablet with food Orally Once a day Active Cyclobenzaprine HCl 5 MG 1 tab(s) orally 3 times a day Not-Taking Benazepril HCl 20 MG 1 tablet Orally Onc e a day Not-Taking buPROPion HCl ER (SR) 150 MG 1 tab(s) orally 2 times a day; Duration: 30 day(s) Not-Taking amLODIPine Besy-Benazepril HCl 10-40 MG as directed Orally Active Gabapentin 300 MG 1 cap(s) orally once a day Not-Taking Ubrelvy 50 MG 1 tablet as needed, may take second dose at least 2 hours after first dose up to 4 tablets per day as needed Orally Once a day Active Amitriptyline HCl 10 MG 1 tab(s) orally once a day (at bedtime) Not-Taking Ondansetron 4 MG 1 tablet on the tongue and allow to dissolve Orally Once a day Active Flonase Allergy Relief 50 MCG/ACT 1 spray(s) in each nostril once a day Not-Taking Testosterone Active Montelukast Sodium 10 MG TAKE 1 TABLET BY MOUTH EVERY DAY; Duration: 90 Active Montelukast Sodium 10 MG 1 tablet Orally Once a day; Duration: 30 days Active CRYOGENICS REPAIRER Thyroid 30 MG 1 tablet on an empty stomach Orally Once a day; Duration: 30 days 06/17/2024 Not-Taking SIT (TRADITIONAL) variable per schedule SC per schedule Active AUVI-Q 0.3 mg as directed intramuscularly once; Duration: 30 day(s) Active NASAL WASHES N/A as directed intranasally as needed; Duration: 30 Active NexIUM 40 MG 1 cap(s) orally once a day Active Immunizations Vaccine Route Administration Date Status Comme nts Covid 19 ([employer]) Unknown 10/01/2020 Administered [employer] Quadrivalent Unknown 03/15/2021 Administered Po rtal Information NOC Pneumovax 23 Unknown 05/26/2012 Administered Portal Information NOC Tdap Unknown 03/28/2017 Administered Portal Infor gerald Social History Tobacco Use: Social History Observation Description Date Details (start date - stop date) Former Smoker NA - NA Sex Assigned At : Social History Observation Description Sex Assigned At Female Tobacco Control (Standard) Question Answer Notes Tobacco use: Former smoker AUDIT-C (Standard) Question Answer Notes Did you have a drink contain ing alcohol in the past year? Yes How often did you have a dri nk containing alcohol in the past year? Monthly or less (1 point) How many drinks did you have on a typical day when you were drinking in the past year? 1 or 2 drinks (0 point) How often did you have six o r more drinks on one occasion in the past year? Never (0 point) Points 1 Interpretation Negative Problems Problem Type SNOMED Code ICD Code Onset Dates Problem Status W/U Status Risk Notes Problem Irritable bowel syndrome (45273317) Irritable bowel syndrome (564.1) Active confirmed Problem Fibromyalgia (645849710) Fibromyalgia (729.1) Active confirmed Problem Polycystic ovary syndrome (disorder) (812077988) Polycystic ovarian syndrome (E28.2) Active confirmed Problem Refractory migraine without aura (162235816) Migraine without aura, intractable, with status migrainosus (G43.011) Active confirmed Problem Chronic allergic conjunctivitis (42529574) Other chronic allergic conjunctivitis (H10.45) Active confirmed Problem Allergic rhinitis caused by pollen (disorder) (02320427) Allergic rhinitis due to pollen (J30.1) Active confirmed Problem Allergic rhinitis (71954973) Other allergic rhinitis (J30.89) Active confirmed Problem Chronic rhinitis (74787387) Chronic rhinitis (J31.0) Active confirmed Problem Endometriosis (867872676) Endometriosis, unspecified (N80.9) Active confirmed Problem Attention deficit hyperactivity disorder, predominantly inattentive type (disorder) (72285064) Attention and concentration deficit (R41.840) Active confirmed Problem Allergic rhinitis caused by pollen (disorder) (58396912) Allergic rhinitis due to pollen (J30.1) Active confirmed Problem Allergic rhinitis caused by animal hair and dander (743107910227403) Allergic rhinitis due to animal (cat) (dog) hair and dander (J30.81) Active confirmed Problem Allergic rhinitis (82729665) Other allergic rhinitis (J30.89) Active confirmed Problem Chronic allergic conjunctivitis (75879290) Other chronic allergic conjunctivitis (H10.45) Active confirmed Problem Allergy to bee venom (210091087) Bee allergy status (Z91.030) Active confirmed Problem Latex allergy status (Z91.040) Active confirmed Problem Essential hypertension (40517491) Essential (primary) hypertension (I10) Active confirmed Problem Allergy to penicillin (24245759) Allergy status to penicillin (Z88.0) Active confirmed Vital Signs Respiratory Rate 17 /min 10/03/2024 Oximetry 99 % 10/03/2024 Blood pressure diastolic 77 mm Hg 10/03/2024 Height 64 in 10/03/2024 Blood pressure systolic 116 mm Hg 10/03/2024 Weight 223 lbs 10/03/2024 BMI 38.27 kg/m2 10/03/2024 Encounters Encounter Location Date Provider Diagnosis DREW Zepeda [address] [place] [phone] 06/10/2024 Arin David - [facility] & [facility] ([address]) [address] [place] [address] 05/29/2024 Rigoberto Stephenson Hormone replacement therapy Z79.890 and Abnormal weight gain R63.5 [facility] & [facility] ([address]) [address] [place] [address] 06/17/2024 Rigoberto Stephenson Hormone replacement therapy Z79.890 [facility] & [facility] ([address]) [address] [place] [address] 09/16/2024 Rigoberto Stephenson [facility] ([address]) [address] [place] [phone] 07/23/2024 [facility]oberto Stephenson [address] [address] [place] [phone] 05/09/2024 Arin Kat Allergic rhinitis du e to pollen J30.1 ; Allergic rhinitis due to animal (cat) (dog) hair and dander J30.81 ; Other allergic rhinitis J30.89 ; Other chronic allergic conjunctivitis H10.45 ; Wheezing R06.2 ; Rash and other nonspecific skin eruption R21 ; Essential (primary) hypertension I10 and Otalgia, bilateral H92.03 [facility] [address] [place] [address] [place] [phone] 10/03/2024 Arin Kat Allergic rhinitis du e to pollen J30.1 ; Allergic rhinitis due to animal (cat) (dog) hair and dander J30.81 ; Other allergic rhinitis J30.89 ; Other chronic allergic conjunctivitis H10.45 ; Wheezing R06.2 ; Rash and other nonspecific skin eruption R21 ; Essential (primary) hypertension I10 and Otalgia, bilateral H92.03 [facility] [address] [place], [place] [address] [address] [place] [phone] 10/09/2024 Rigoberto Stephenson Allergic rhinitis du e to pollen J30.1 ; Other allergic rhinitis J30.89 ; Allergic rhinitis due to animal (cat) (dog) hair and dander J30.81 and Other chronic allergic conjunctivitis H10.45 [facility] [address] [place], [place] [address] [address] [address] 10/28/2024 Rigoberto Stephenson Allergic rhinitis du e to pollen J30.1 ; Other allergic rhinitis J30.89 ; Allergic rhinitis due to animal (cat) (dog) hair and dander J30.81 and Other chronic allergic conjunctivitis H10.45 [facility] [address] [place] [phone] 05/14/2024 Rigoberto Stephenson Allergic rhinitis du e to pollen J30.1 ; Other allergic rhinitis J30.89 ; Allergic rhinitis due to animal (cat) (dog) hair and dander J30.81 and Other chronic allergic conjunctivitis H10.45 [facility] [address] [place] [phone] 05/21/2024 Rigoberto Sachin Allergic rhinitis du e to pollen J30.1 ; Other allergic rhinitis J30.89 ; Allergic rhinitis due to animal (cat) (dog) hair and dander J30.81 and Other chronic allergic conjunctivitis H10.45 [facility] [address] [place] [phone] 06/11/2024 Rigoberto Sachin Allergic rhinitis du e to pollen J30.1 ; Other allergic rhinitis J30.89 ; Allergic rhinitis due to animal (cat) (dog) hair and dander J30.81 and Other chronic allergic conjunctivitis H10.45 [facility] [address] [place] [phone] 07/04/2024 Rigoberto Sachin Allergic rhinitis du e to pollen J30.1 ; Other allergic rhinitis J30.89 ; Allergic rhinitis due to animal (cat) (dog) hair and dander J30.81 and Other chronic allergic conjunctivitis H10.45 [facility] [address] [place] [phone] 07/23/2024 Rigoberto Sachin Allergic rhinitis du e to pollen J30.1 ; Other allergic rhinitis J30.89 ; Allergic rhinitis due to animal (cat) (dog) hair and dander J30.81 and Other chronic allergic conjunctivitis H10.45 [facility] [address] [place] [address] [place] [phone] 09/04/2024 Rigoberto Stephenson Allergic rhinitis du e to pollen J30.1 ; Other allergic rhinitis J30.89 ; Allergic rhinitis due to animal (cat) (dog) hair and dander J30.81 and Other chronic allergic conjunctivitis H10.45 [facility] [address] [place] [address] [employer] [address] [phone] 09/17/2024 Rigoberto Stephenson Allergic rhinitis du e to pollen J30.1 ; Other allergic rhinitis J30.89 ; Allergic rhinitis due to animal (cat) (dog) hair and dander J30.81 and Other chronic allergic conjunctivitis H10.45 [facility] [address] [place] [address] [employer] [address] [phone] 01/08/2024 Rigoberto Stephenson Allergic rhinitis du e to pollen J30.1 ; Other allergic rhinitis J30.89 ; Allergic rhinitis due to animal (cat) (dog) hair and dander J30.81 and Other chronic allergic conjunctivitis H10.45 [facility] [address] [place] [phone] 01/31/2024 Rigoberto Stephenson Allergic rhinitis du e to pollen J30.1 ; Other allergic rhinitis J30.89 ; Allergic rhinitis due to animal (cat) (dog) hair and dander J30.81 and Other chronic allergic conjunctivitis H10.45 [facility] [address] [place] [phone] 02/20/2024 Rigoberto Stephenson Allergic rhinitis du e to pollen J30.1 ; Other allergic rhinitis J30.89 ; Allergic rhinitis due to animal (cat) (dog) hair and dander J30.81 and Other chronic allergic conjunctivitis H10.45 [facility] [address] [place] [address] [employer] [address] [phone] 03/12/2024 Rigoberto Stephenson Allergic rhinitis du e to pollen J30.1 ; Other allergic rhinitis J30.89 ; Allergic rhinitis due to animal (cat) (dog) hair and dander J30.81 and Other chronic allergic conjunctivitis H10.45 [facility] [address] [place] [address] [employer] [address] [phone] 04/10/2024 Rigoberto Stephenson Allergic rhinitis du e to pollen J30.1 ; Other allergic rhinitis J30.89 ; Allergic rhinitis due to animal (cat) (dog) hair and dander J30.81 and Other chronic allergic conjunctivitis H10.45 Assessments Encounter Date Diagnosis (ICD Code) Assessment Notes Treatment Notes Treatment Clinical Notes Section Notes 01/08/2024 Allergic rhinitis due to pollen (ICD-10 - J30.1) 01/31/2024 Allergic rhinitis due to pollen (ICD-10 - J30.1) 02/20/2024 Allergic rhinitis due to pollen (ICD-10 - J30.1) 03/12/2024 Allergic rhinitis due to pollen (ICD-10 - J30.1) 04/10/2024 Allergic rhinitis due to pollen (ICD-10 - J30.1) 05/09/2024 Allergic rhinitis due to pollen (ICD-10 - J30.1) Betzy clearly suffers from atopic disease based upon our skin testing and clinical history. Accordingly, we have encouraged her medication regimen, nasal washes and allergy-specific avoidance measures. Continues SCIT at [facility] and tolerating well. No local or systemic reactions while in office. Keep AIE on hand 2 hours after each SCIT visit. Continue to premedicate with Zyrtec and Singulair. Discussed increasing shot frequency, reformulation, or increased dosing if she continues to have symptoms but overall doing well 05/09/2024 Allergic rhinitis due to animal (cat) (dog) hair and dander (ICD-10 - J30.81) Follow allergen avoidance, meds and continue SCIT as an adjunctive treatment to current regimen 05/14/2024 Allergic rhinitis due to pollen (ICD-10 - J30.1) 05/21/2024 Allergic rhinitis due to pollen (ICD-10 - J30.1) 05/29/2024 Abnormal weight gain (ICD-10 - R63.5) 05/29/2024 Hormone replacement therapy (ICD-10 - Z79.890) 06/11/2024 Allergic rhinitis due to pollen (ICD-10 - J30.1) 06/17/2024 Hormone replacement therapy (ICD-10 - Z79.890) -Start DIM daily. She purchased 30 day pack of [employer] Methyl Factors, ADK 5,000, and DIM on [employer] -Start CRYOGENICS REPAIRER Thyroid 30 mg daily on empty stomach -Post pellet labs in 6 weeks, 07/29/24 -Pellet Insertion #2 to be scheduled the week of 09/15/24 07/04/2024 Allergic rhinitis due to pollen (ICD-10 - J30.1) 09/04/2024 Allergic rhinitis due to pollen (ICD-10 - J30.1) 09/17/2024 Allergic rhinitis due to pollen (ICD-10 - J30.1) 10/03/2024 Allergic rhinitis due to pollen (ICD-10 - J30.1) Betzy clearly suffers from atopic disease based upon our skin testing and clinical history. Accordingly, we have encouraged her medication regimen, nasal washes and allergy-specific avoidance measures. Continues SCIT at MM and tolerating well. No local or systemic reactions while in office. Keep AIE on hand 2 hours after each SCIT visit. Continue to premedicate with Zyrtec and Singulair. Discussed increasing shot frequency, reformulation, or increased dosing if she continues to have symptoms but overall doing well 10/03/2024 Allergic rhinitis due to animal (cat) (dog) hair and dander (ICD-10 - J30.81) Follow allergen avoidance, meds and continue SCIT as an adjunctive treatment to current regimen 10/09/2024 Allergic rhinitis due to pollen (ICD-10 - J30.1) 10/28/2024 Allergic rhinitis due to pollen (ICD-10 - J30.1) 07/23/2024 Allergic rhinitis due to pollen (ICD-10 - J30.1) 07/23/2024 Other allergic rhinitis (ICD-10 - J30.89) 10/28/2024 Other allergic rhinitis (ICD-10 - J30.89) 10/09/2024 Other allergic rhinitis (ICD-10 - J30.89) 06/11/2024 Other allergic rhinitis (ICD-10 - J30.89) 10/03/2024 Other allergic rhinitis (ICD-10 - J30.89) Follow allergen avoidance, meds and continue SCIT as an adjunctive treatment to current regimen 09/17/2024 Other allergic rhinitis (ICD-10 - J30.89) 09/04/2024 Other allergic rhinitis (ICD-10 - J30.89) 07/04/2024 Other allergic rhinitis (ICD-10 - J30.89) 05/21/2024 Other allergic rhinitis (ICD-10 - J30.89) 05/14/2024 Other allergic rhinitis (ICD-10 - J30.89) 05/09/2024 Other allergic rhinitis (ICD-10 - J30.89) Follow allergen avoidance, meds and continue SCIT as an adjunctive treatment to current regimen 04/10/2024 Other allergic rhinitis (ICD-10 - J30.89) 03/12/2024 Other allergic rhinitis (ICD-10 - J30.89) 02/20/2024 Other allergic rhinitis (ICD-10 - J30.89) 01/31/2024 Other allergic rhinitis (ICD-10 - J30.89) 01/08/2024 Other allergic rhinitis (ICD-10 - J30.89) 01/08/2024 Allergic rhinitis due to animal (cat) (dog) hair and dander (ICD-10 - J30.81) 01/31/2024 Allergic rhinitis due to animal (cat) (dog) hair and dander (ICD-10 - J30.81) 02/20/2024 Allergic rhinitis due to animal (cat) (dog) hair and dander (ICD-10 - J30.81) 03/12/2024 Allergic rhinitis due to animal (cat) (dog) hair and dander (ICD-10 - J30.81) 04/10/2024 Allergic rhinitis due to animal (cat) (dog) hair and dander (ICD-10 - J30.81) 05/09/2024 Other chronic allergic conjunctivitis (ICD-10 - H10.45) Given ocular signs and symptoms I encouraged allergy avoidance measures and meds as above. If symptoms persist, consider adding additional medications including intraocular antihistamine/mast cell stabilizer, PRN and continue SCIT as an adjunctive measure 05/14/2024 Allergic rhinitis due to animal (cat) (dog) hair and dander (ICD-10 - J30.81) 05/21/2024 Allergic rhinitis due to animal (cat) (dog) hair and dander (ICD-10 - J30.81) 09/04/2024 Allergic rhinitis due to animal (cat) (dog) hair and dander (ICD-10 - J30.81) 07/04/2024 Allergic rhinitis due to animal (cat) (dog) hair and dander (ICD-10 - J30.81) 06/11/2024 Allergic rhinitis due to animal (cat) (dog) hair and dander (ICD-10 - J30.81) 09/17/2024 Allergic rhinitis due to animal (cat) (dog) hair and dander (ICD-10 - J30.81) 10/03/2024 Other chronic allergic conjunctivitis (ICD-10 - H10.45) Given ocular signs and symptoms I encouraged allergy avoidance measures and meds as above. If symptoms persist, consider adding additional medications including intraocular antihistamine/mast cell stabilizer, PRN and continue SCIT as an adjunctive measure 10/09/2024 Allergic rhinitis due to animal (cat) (dog) hair and dander (ICD-10 - J30.81) 10/28/2024 Allergic rhinitis due to animal (cat) (dog) hair and dander (ICD-10 - J30.81) 07/23/2024 Allergic rhinitis due to animal (cat) (dog) hair and dander (ICD-10 - J30.81) 07/23/2024 Other chronic allergic conjunctivitis (ICD-10 - H10.45) 10/28/2024 Other chronic allergic conjunctivitis (ICD-10 - H10.45) 10/09/2024 Other chronic allergic conjunctivitis (ICD-10 - H10.45) 10/03/2024 Wheezing (ICD-10 - R06.2) Prior episodes of bronchitis and use of albuterol -Spirometry at initial visit totally normal -No interval issues -Continue to monitor 09/17/2024 Other chronic allergic conjunctivitis (ICD-10 - H10.45) 06/11/2024 Other chronic allergic conjunctivitis (ICD-10 - H10.45) 07/04/2024 Other chronic allergic conjunctivitis (ICD-10 - H10.45) 09/04/2024 Other chronic allergic conjunctivitis (ICD-10 - H10.45) 05/14/2024 Other chronic allergic conjunctivitis (ICD-10 - H10.45) 05/21/2024 Other chronic allergic conjunctivitis (ICD-10 - H10.45) 05/09/2024 Wheezing (ICD-10 - R06.2) Prior episodes of bronchitis and use of albuterol -Spirometry at initial visit totally normal -No interval issues -Continue to monitor 04/10/2024 Other chronic allergic conjunctivitis (ICD-10 - H10.45) 03/12/2024 Other chronic allergic conjunctivitis (ICD-10 - H10.45) 02/20/2024 Other chronic allergic conjunctivitis (ICD-10 - H10.45) 01/31/2024 Other chronic allergic conjunctivitis (ICD-10 - H10.45) 01/08/2024 Other chronic allergic conjunctivitis (ICD-10 - H10.45) 05/09/2024 Rash and other nonspecific skin eruption (ICD-10 - R21) Lifetime sensitive skin with some products with dyes, fragrance, and metals. Last year had a reaction to eye shadow and still has lingering rash -Doing well with Protopic BID. Hold now as skin is clear. Apply thick emollient on top such as Vaseline or Vanicream -Discussed patch testing in the future -Encouraged daily moisturization and refrain from use of products with dyes or fragrance 10/03/2024 Rash and other nonspecific skin eruption (ICD-10 - R21) Lifetime sensitive skin with some products with dyes, fragrance, and metals. Last year had a reaction to eye shadow and still has lingering rash -Doing well with Protopic BID. Hold now as skin is clear. Apply thick emollient on top such as Vaseline or Vanicream -Discussed patch testing in the future -Encouraged daily moisturization and refrain from use of products with dyes or fragrance 10/03/2024 Essential (primary) hypertension (ICD-10 - I10) BP elevated today without symptoms of urgency or emergency. Continue serial checks and follow-up with PCP 05/09/2024 Essential (primary) hypertension (ICD-10 - I10) BP elevated today without symptoms of urgency or emergency. Continue serial checks and follow-up with PCP 05/09/2024 Otalgia, bilateral (ICD-10 - H92.03) seen by ENT and found to have vestibular neuritis - now in PT 10/03/2024 Otalgia, bilateral (ICD-10 - H92.03) seen by ENT and found to have vestibular neuritis - now in PT 05/29/2024 Other She is interested in BHRT- testosterone and estrogen pellets. She is currenlty on Norethindrone BC and estrogen cream. She does not like the creams and prefers to switch to pellet therapy. [facility] DS workup completed (Testosterone pellet dose 100 mg or 125 mg, not a candidate for estrogen while on BC). Lab for T3 FREE was missing from recent labs. The patient would like a prescription for CRYOGENICS REPAIRER Thyroid and plans to have this lab drawn with her PCP this week. Recommendations: -BHRT Pellet insertion -CRYOGENICS REPAIRER Thyroid 30 mg (pending lab results) -Recommended Visbiome probiotic (purchased) -Continue vitamin B12 and D supplementation 05/09/2024 Other 10/03/2024 Other 09/16/2024 -Post pellet labs- declined -Continue DIM -Next pellet insertion #3 approximate date 12/17/24 Plan Of Treatment Pending Test Test Name Order Date LATEX ([id number]) IGE 05/04/2021 Next Appt Details Provider Name:Arin ResendezEllie North , 04/10/2025 12:30:00 PM, 2022 [facility], [facility] [address], [place], [address], Insurance Providers Payer Name Payer Address Payer Phone Subscriber Number Group Number Insured Name Patient Relationship to Insured Coverage Start Date Coverage End Date [employer] [address] [place] [address] [id number] Betzy Morales Self - patient is the insured 2 Medical (General) History Medical History History ICD Code Fibromyalgia 729.1 Attention and concentration deficit R41. 840 Endometriosis, unspecified N80.9 Irritable bowel syndrome 564.1 Migraine without aura, intractable, with status migrainosus G43.011 Polycystic ovarian syndrome E28.2 Allergic rhinitis due to pollen J30.1 Allergic rhinitis due to animal (cat) (d og) hair and dander J30.81 Other allergic rhinitis J30.89 Other chronic allergic conjunctivitis H1 0.45 Surgical History Surgery Date(Month/Year) Lysis of adhesions 03/29/2002 lysis of adhesions 10/29/2004 Cholecystectomy 07/12/2013 09/19/2014 Cystoscopy 10/25/2016 2018 Interstem stage 1 11/2021 interstem stage 2 12/2021 Carpal tunnel release 10/2022 Carpal tunnel left 04/2023
--- OUTSIDE RECORDS SUMMARY | 2024-12-26 16:29 | XMS_ITS | Data Portability ---
Author Organization [facility] [employer], Main Office Address [address] [place] [address] Assessment No assessment recorded. Plan of Treatment Reminders Order Date Submit Date Provider Last Modified By Organization Details Last Modified Time Details Appointments None recorded. Lab HbA1c (hemoglobin A1c), blood 2022 023 [facility], [address], [place], [address], 3 10:31:27 insulin, serum 2022 023 [facility], [address], [place], [address], 3 10:31:28 cortisol, am, serum 2022 023 [facility], [address], [place], [address], 3 10:29:08 dexamethaso ne, serum 2022 023 [facility], [address], [place], [address], 3 14:17:29 TSH, serum or plasma 2022 023 [facility], [address], [place], [address], 3 10:29:07 T4, free, serum 2022 023 [facility], [address], [place], [address], 3 10:29:04 acth, plasma 2022 023 [facility], [address], [place], [address], 3 10:29:07 cortisol, am, serum 2022 023 [facility], [address], [place], [address], 3 10:29:06 CMP, serum or plasma 2022 023 [facility], [address], [place], [address], 3 10:29:02 cortisol, am, serum 2022 023 [facility], [address], [place], [address], 3 19:16:34 dexamethaso ne, serum 2022 023 [facility], [address], [place], [address], 3 01:22:54 TSH + free T4, serum 2022 023 [facility], [address], [place], [address], 3 01:23:02 vitamin B12 + folate, serum or blood 2022 023 [facility], [address], [place], [address], 3 01:23:00 vitamin D, 25-hydroxy, total, serum 2022 023 [facility], [address], [place], [address], 3 01:23:01 magnesium, serum or plasma 2022 023 [facility], [address], [place], [address], 3 01:22:50 unlisted lab - thyroid peroxidase and thyroglobul in antibodies 2022 023 [facility], [address], [place], [address], 3 01:22:55 CMP, serum or plasma 2022 023 [facility], [address], [place], [address], 3 01:22:51 iron + TIBC + ferritin, serum 2022 023 [facility], [address], [place], [address], 3 01:22:48 prolactin, serum 2022 023 [facility], [address], [place], [address], 3 01:22:58 T4, free, serum 2022 023 [facility], [address], [place], [address], 3 14:34:24 TSH, serum or plasma 2022 023 [facility], [address], [place], [address], 3 14:34:20 acth, plasma 2022 023 [facility], [address], [place], [address], 3 01:22:52 cortisol, am, serum 2022 023 [facility], [address], [place], [address], 3 01:22:59 igf-1 (insulin-li ke growth factor), serum 2022 023 [facility], [address], [place], [address], 3 01:22:52 estradiol, serum 2022 023 [facility], [address], [place], [address], 3 01:22:59 progesteron e, serum 2022 023 [facility], [address], [place], [address], 3 01:22:57 dhea-sulfat e, serum 2022 023 [facility], [address], [place], [address], 3 01:22:56 testosteron e, free + total, serum 2022 023 [facility], [address], [place], [address], 3 01:22:49 insulin, serum 2022 023 [facility], [address], [place], [address], 3 01:22:56 aldosterone /renin activity, ratio, plasma 2022 023 [facility], [address], [place], [address], 3 01:22:53 renin activity, plasma (pra) 2022 023 [facility], [address], [place], [address], 3 14:34:24 aldosterone , serum 2022 023 [facility], [address], [place], [address], 3 14:34:19 Referral None recorded. Procedures None recorded. Surgeries None recorded. Imaging US, thyroid [email or web address] [facility] [address] [facility], [address], [address] [address], [place], [address], 3 14:49:32 Medication Orders dexamethaso ne 1 mg tablet 2022 023 [facility]acy #[id number], [address], [place], [address], 3 10:28:00 spironolact one 50 mg tablet [address]/Pharmacy #[id number], [address], [place], [address], 3 14:14:45 dexamethaso ne 1 mg tablet 2022 023 [id number], [address], [place], [place], [id number], 3 10:01:34 Patient TargetsNo targets recorded. Patient InstructionsNo instructions recorded. Reason for Referral None Reported. Results Created Date Observation Date Name Description Value Unit Range Abnormal Flag Note LastModifiedBy Organization Detail LastModifiedTime 09/01/1909/08/2022 IRON, TIBC AND CHALO TIN PANEL iron, total 59 mcg/d L 40-190 normal Not Available [facility] [address], [address], 09/08/2022 01:22:48 09/01/1909/08/2022 IRON, TIBC AND CHALO TIN PANEL iron binding capacity 392 mcg/d L_(ca lc) 250-45 0 normal Not Available [address], [address], 09/08/2022 01:22:48 09/01/1909/08/2022 IRON, TIBC AND CHALO TIN PANEL % saturation 15 %_(ca lc) 16-45 low Not Available [address], [address], 09/08/2022 01:22:48 09/01/1909/08/2022 IRON, TIBC AND CHALO TIN PANEL ferritin 173 NG/mL 16-154 high Not Available [facility] [address], [address], 09/08/2022 01:22:48 09/01/19 23 09/08/2022 TESTO STERO NE, FREE, BIOAV AILAB LE AND TOTAL , MS albumin 3.8 g/dL 3.6-5. 1 Not Available [facility] [address], [address], 09/08/2022 01:22:49 09/01/19 23 09/08/2022 TESTO STERO NE, FREE, BIOAV AILAB LE AND TOTAL , MS sex hormone binding globulin 228 nmol/ L 17-124 high Not Available [facility] [address] [address] [place], [address], 09/08/2022 01:22:49 09/01/1909/08/2022 TESTO STERO NE, FREE, BIOAV AILAB LE AND TOTAL , MS testosterone , free 0.4 pg/mL 0.2-5. 0 Not Available [facility] [address] [address] [place], [address], 09/08/2022 01:22:49 09/01/1909/08/2022 TESTO STERO NE, FREE, BIOAV AILAB LE AND TOTAL , MS testosterone ,bioavailabl e 0.8 NG/dL 0.5-8. 5 Not Available [facility] [address] [address] [place], [address], 09/08/2022 01:22:49 09/01/1909/08/2022 TESTO STERO NE, FREE, BIOAV AILAB LE AND TOTAL , MS testosterone , total, MS 21 NG/dL 2-45 For addit ional infor jesus samayoa e refer to https ://ed ucati on.[employer] jessicaSoundtracker. uniRow/f aq/FA Q165 (This link is being provi ded for infor colten nal/e ducat ional purpo ses only. ) (Note ) This test was devel oped and its letty tical perfo rmanc e yashira cteri stics have been deter mined by [employer]. It has not been clear ed or appro bryce by the FDA. This assay has been valid ated pursu ant to the CLIA regul ation s and is used for clini nimisha purpo ses. BÁRBARA med fusio n [address] [facility] [address] [place] [address] [phone] Randy bentley MD Not Available [facility] [address] [address] [place], [address], 09/08/2022 01:22:49 09/01/1909/08/2022 MAGNE SIUM magnesium 1.9 mg/dL 1.5-2. 5 normal Not Available [address], [address], 09/08/2022 01:22:50 09/01/19 23 09/08/2022 COMPR EHENS NATI METAB OLIC PANEL glucose 97 mg/dL 65-99 normal Fasti ng refer ence inter javon Not Available [address], [address], 09/08/2022 01:22:51 09/01/19 23 09/08/2022 COMPR EHENS NATI METAB OLIC PANEL urea nitrogen (BUN) 9 mg/dL 7-25 normal Not Available [address], [address], 09/08/2022 01:22:51 09/01/19 23 09/08/2022 COMPR EHENS NATI METAB OLIC PANEL creatinine 0.72 mg/dL 0.50-0 .97 normal Not Available [address], [address], 09/08/2022 01:22:51 09/01/1909/08/2022 COMPR EHENS NATI METAB OLIC PANEL eGFR 109 mL/mi n/1.7 3m2 > or = 60 normal The eGFR is based on the CKD-E PI 2020 erickat jordyn. To calcu late the new eGFR from a previ ous Creat inine or Cysta tin C resul t, go to https ://asif w.esa villalobos.o jasmyne/yrn he s/ kdoqi /gfr% 5Fcal culat or Not Available [address], [address], 09/08/2022 01:22:51 09/01/19 23 09/08/2022 COMPR EHENS NATI METAB OLIC PANEL BUN/creatini ne ratio NOT APPLIC ABLE (calc ) 6-22 Not Available [address] [place], [address], 09/08/2022 01:22:51 09/01/19 23 09/08/2022 COMPR EHENS NATI METAB OLIC PANEL sodium 142 mmol/ L 135-14 6 normal Not Available [address], [address], 09/08/2022 01:22:51 09/01/19 23 09/08/2022 COMPR EHENS NATI METAB OLIC PANEL potassium 3.5 mmol/ L 3.5-5. 3 normal Not Available [address], [address], 09/08/2022 01:22:51 09/01/19 23 09/08/2022 COMPR EHENS NATI METAB OLIC PANEL chloride 103 mmol/ L 98-110 normal Not Available [address], [address], 09/08/2022 01:22:51 09/01/19 23 09/08/2022 COMPR EHENS NATI METAB OLIC PANEL carbon dioxide 26 mmol/ L 20-32 normal Not Available [address], [address], 09/08/2022 01:22:51 09/01/19 23 09/08/2022 COMPR EHENS NATI METAB OLIC PANEL calcium 9.3 mg/dL 8.6-10 .2 normal Not Available [address], [address], 09/08/2022 01:22:51 09/01/19 23 09/08/2022 COMPR EHENS NATI METAB OLIC PANEL protein, total 6.8 g/dL 6.1-8. 1 normal Not Available [address], [address], 09/08/2022 01:22:51 09/01/19 23 09/08/2022 COMPR EHENS NATI METAB OLIC PANEL albumin 3.8 g/dL 3.6-5. 1 normal Not Available [address], [address], 09/08/2022 01:22:51 09/01/19 23 09/08/2022 COMPR EHENS NATI METAB OLIC PANEL globulin 3.0 g/dL_ (calc ) 1.9-3. 7 normal Not Available [address], [address], 09/08/2022 01:22:51 09/01/19 23 09/08/2022 COMPR EHENS NATI METAB OLIC PANEL albumin/glob ulin ratio 1.3 (calc ) 1.0-2. 5 normal Not Available [address], [address], 09/08/2022 01:22:51 09/01/19 23 09/08/2022 COMPR EHENS NATI METAB OLIC PANEL bilirubin, total 0.4 mg/dL 0.2-1. 2 normal Not Available [address], [address], 09/08/2022 01:22:51 09/01/19 23 09/08/2022 COMPR EHENS NATI METAB OLIC PANEL alkaline phosphatase 81 U/L 31-125 normal Not Available [address], [address], 09/08/2022 01:22:51 09/01/19 23 09/08/2022 COMPR EHENS NATI METAB OLIC PANEL AST 26 U/L 10-30 normal Not Available [address], [address], 09/08/2022 01:22:51 09/01/19 23 09/08/2022 COMPR EHENS NATI METAB OLIC PANEL ALT 57 U/L 6-29 high Not Available [address], [address], 09/08/2022 01:22:51 09/01/1909/08/2022 ACTH, PLASM A acth, plasma 7 pg/mL 6-50 Refer ence range appli es only to speci mens colle cted betwe en 7am-1 0am. Not Available [facility] [address] [address] [place], [address], 09/08/2022 01:22:51 09/01/1909/08/2022 IGF 1, LC/MS igf 1, lc/MS 67 NG/mL 53-331 Not Available [facility] [address] [place], [address], 09/08/2022 01:22:52 09/01/1909/08/2022 IGF 1, LC/MS Z score (female) -1.5 SD -2.0 - +2.0 This test was devel oped and its letty tical perfo rmanc e yashira cteri stics have been deter mined by [facility] Derek Swanson . It has not been clear ed or appro bryce by FDA. This assay has been valid ated pursu ant to the CLIA regul ation s and is used for clini nimisha purpo ses. Not Available [facility] [address] [place], [address], 09/08/2022 01:22:52 09/01/1909/08/2022 ALDOS JESSIE E/LION SMA RENIN ACTIV ITY RATIO ,LC/M S/MS aldosterone, lc/MS/MS 12 NG/dL Adult Refer ence Range s for Aldos jessie e: Uprig ht 8:00- 10:00 am < or = 28 ng/dL Uprig ht 4:00- 6:00 pm < or = 21 ng/dL Supin e 8:00- 10:00 am 3-16 ng/dL This test was devel oped and its letty tical perfo rmanc e yashira cteri stics have been deter mined by [facility] [employer] [employer] . It has not been clear ed or appro bryce by FDA. This assay has been valid ated pursu ant to the CLIA regul ation s and is used for clini nimisha purpo ses. Not Available [facility] [address] [address] [place], [address], 09/08/2022 01:22:53 09/01/1909/08/2022 ALDOS JESSIE E/LION SMA RENIN ACTIV ITY RATIO ,LC/M S/MS plasma renin activity, lc/MS/MS 17.76 NG/mL /h 0.25-5 .82 high Not Available [facility] [address], [address], 09/08/2022 01:22:53 09/01/1909/08/2022 ALDOS JESSIE E/LION SMA RENIN ACTIV ITY RATIO ,LC/M S/MS ki/pra ratio 0.7 ratio 0.9-28 .9 low Not Available [facility] [address] [address] [place], [address], 09/08/2022 01:22:53 09/01/1909/08/2022 DEXAM ETHAS ONE dexamethason e <20 NG/dL Refer ence Range s for Dexam ethas one: Basel ine: Less than 20 ng/dL 1 mg dexam ethas one overn ight: 180-5 50 ng/dL (8:00 -10:0 0 AM) This test was devel oped and its letty tical perfo rmanc e yashira cteri stics have been deter mined by [employer] [facility] [employer] [employer] . It has not been clear ed or appro bryce by FDA. This assay has been valid ated pursu ant to the CLIA regul ation s and is used for clini nimisha purpo ses. Not Available [facility] [address] [address] [place], [address], 09/08/2022 01:22:54 03/08/20 23 09/08/2022 THYRO ID PEROX IDASE AND THYRO GLOBU CEE ANTIB ODIES thyroglobuli n antibodies <1 IU/mL < or = 1 normal Not Available [address] [address] [place], [address], 09/08/2022 01:22:55 09/01/19 23 09/08/2022 THYRO ID PEROX IDASE AND THYRO GLOBU CEE ANTIB ODIES thyroid peroxidase antibodies 1 IU/mL <9 normal Not Available [address] [address] [place], [address], 09/08/2022 01:22:55 09/01/19 23 09/08/2022 DHEA SULFA TE DHEA sulfate 69 mcg/d L 19-237 normal Not Available [address] [address] [place], [address], 09/08/2022 01:22:56 09/01/1909/08/2022 INSUL IN insulin 24.5 uIU/m L high Refer ence Range < or = 18.4 Risk: Optim al < or = 18.4 Moder ate NA High >18.4 Adult cardi ovasc ular event risk categ ory cut point s (opti mal, moder ate, high) are based on Insul in Refer ence Inter javon studi es perfo rmed at [facility] in 2021. Not Available [facility] [address] [address] [place], [address], 09/08/2022 01:22:56 09/01/1909/08/2022 PROGE STERO NE progesterone <0.5 NG/mL normal Refer ence Range s Femal e Folli cular Phase < 1.0 Lutea l Phase 2.6-2 1.5 Post menop ausal < 0.5 Pregn scot 1st Trime ster 4.1-3 4.0 2nd Trime ster 24.0- 76.0 3rd Trime ster 52.0- 302.0 Not Available [facility] [address] [address] [place], [address], 09/08/2022 01:22:57 09/01/19 23 09/08/2022 PROLA CTIN prolactin 7.1 NG/mL normal Refer ence Range Femal es Non-p regna nt 3.0-3 0.0 Pregn ant 10.0- 209.0 Postm enopa usal 2.0-2 0.0 Not Available [facility] [address] [place], [address], 09/08/2022 01:22:58 09/01/19 23 09/08/2022 ESTRA DIOL estradiol <15 pg/mL normal Refer ence Range Folli cular Phase : 19-14 4 Mid-C ycle: 64-35 7 Lutea l Phase : 56-21 4 Postm enopa usal: < or = 31 Refer ence range estab lishe d on post- puber elías patie nt popul ation . No pre-p ubert al refer ence range estab lishe d using this assay . For any patie nts for whom low Estra diol level s are antic ipate d (e.g. males , pre-p ubert al child nitin and hypog onada l/pos t-men opaus al femal es), the [facility] Estra diol, Ultra sensi tive, LCMSM S assay is recom elena d (orde r code 26223 ). Pleas e note: patie nts being treat ed with the drug fulve stran t (Fasl odex( R)) have demon strat ed signi fican t inter feren ce in immun oassa y metho ds for estra diol measu remen t. The cross react ivity could lead to false ly eleva kranthi estra diol test resul ts leadi ng to an inapp ropri ate clini nimisha asses sment of estro gen statu s. [facility] order code 15479 -Estr adiol , Ultra sensi tive LC/MS /MS demon strat es negli gible cross react ivity with fulve stran t. Not Available [employer] [facility] [address] [place], [address], 09/08/2022 01:22:59 09/01/1909/08/2022 CORTI FRANCOIS, A.M. cortisol, A.M. 21.2 mcg/d L normal Refer ence Range 8 a.m. (7-9 a.m.) Speci men: 4.0-2 2.0 Not Available [facility] [address] [place], [place] [address], [place], [address], 09/08/2022 01:22:59 09/01/1909/08/2022 VITAM IN B12/F OLATE , SERUM PANEL vitamin B12 478 pg/mL 200-11 00 normal Not Available [address], [address], 09/08/2022 01:23:00 09/01/1909/08/2022 VITAM IN B12/F OLATE , SERUM PANEL folate, serum >24.0 NG/mL normal Refer ence Range Low: <3.4 Borde rline : 3.4-5 .4 Ana l: >5.4 Not Available [facility] [address] [place] [address], [address], 09/08/2022 01:23:00 09/01/1909/08/2022 VITAM IN D,25- OH,TO ELÍAS,I A vitamin D,25-oh,tota l,ia 48 NG/mL 30-100 normal Vitam in D Statu s 25-OH Vitam in D: Defic iency : <20 ng/mL Insuf ficie ncy: 20 - 29 ng/mL Optim al: > or = 30 ng/mL For 25-OH Vitam in D testi ng on patie nts on D2-ackerman pplem entat ion and patie nts for whom quant itati on of D2 and D3 fract ions is requi red, the [facility] Ass[facility] eD(TM ) 25-OH VIT D, (D2,D 3), LC/MS /MS is recom elena d: order code 86005 (alberta ents >2yrs ). See Note 1 Note 1 For addit ional infor ejsus samayoa e refer to http: //[facility] josefina Calderon stDia gnost ics.c om/fa q/FAQ 199 (This link is being provi ded for infor colten sterling/ bobby rincon purpo ses only. ) Not Available [employer] [employer] [address] [address] [place], [address], 09/08/2022 01:23:01 09/01/1909/08/2022 TSH+F REE T4 TSH 1.66 mIU/L normal Refer ence Range > or = 20 Years 0.40- 4.50 Pregn scot Range s First trime ster 0.26- 2.66 Secon d trime ster 0.55- 2.73 Third trime ster 0.43- 2.91 Not Available [employer] [address] [address] [place], [address], 09/08/2022 01:23:02 09/01/1909/08/2022 TSH+F REE T4 T4, free 1.0 NG/dL 0.8-1. 8 normal Not Available [employer] [employer] [address] [address] [place], [address], 09/08/2022 01:23:02 09/04/1909/14/2022 DEXAM ETHAS ONE dexamethason e 319 NG/dL Refer ence Range s for Dexam ethas one: Basel ine: Less than 20 ng/dL 1 mg dexam ethas one overn ight: 180-5 50 ng/dL (8:00 -10:0 0 AM) This test was devel oped and its letty tical perfo rmanc e yashira cteri stics have been deter mined by [facility] Derek Nagyi linda Swanson . It has not been clear ed or appro bryce by FDA. This assay has been valid ated pursu ant to the CLIA regul ation s and is used for clini nimisha purpo ses. Not Available [facility] [address] [address] [place], [address], 09/14/2022 19:16:33 09/04/19 23 09/14/2022 CORTI FRANCOIS, A.M. cortisol, A.M. 1.9 mcg/d L low Refer ence Range 8 a.m. (7-9 a.m.) Speci men: 4.0-2 2.0 Not Available [address] [place], [address], 09/14/2022 19:16:34 09/27/1910/03/2022 ACTH, PLASM A acth, plasma 10 pg/mL 6-50 Refer ence range appli es only to speci mens colle cted betwe en 7am-1 0am. Not Available [address], [address], 10/03/2022 13:50:44 09/27/19 23 10/03/2022 CORTI FRANCOIS, FREE, 24 HOUR URINE total volume 1400 mL Not Available [address], [address], 10/03/2022 13:50:45 09/27/19 23 10/03/2022 CORTI FRANCOIS, FREE, 24 HOUR URINE cortisol, free, urine 12.4 mcg/2 4_h 4.0-50 .0 Not Available [address], [address], 10/03/2022 13:50:45 09/27/1910/03/2022 CORTI FRANCOIS, FREE, 24 HOUR URINE cortisol, free, urine 7.6 mcg/g _crea t Refer ence Range : ADULT S: 3.1-4 2.3 Not Available [address], [address], 10/03/2022 13:50:45 09/27/19 23 10/03/2022 CORTI FRANCOIS, FREE, 24 HOUR URINE creatinine, urine 1.63 g/24_ h 0.50-2 .15 This test was devel oped and its letty tical perfo rmanc e yashira cteri stics have been deter mined by [facility] Alfredo kimball . It has not been clear ed or appro bryce by FDA. This assay has been valid ated pursu ant to the CLIA regul ation s and is used for clini nimisha purpo ses. Not Available [facility] [address] [place], [address], 10/03/2022 13:50:45 09/27/19 23 10/03/2022 CORTI FRANCOIS, A.M. cortisol, A.M. 23.2 mcg/d L high Refer ence Range 8 a.m. (7-9 a.m.) Speci men: 4.0-2 2.0 Not Available [facility] [address] [place], [address], 10/03/2022 13:50:46 10/04/19 23 10/07/2022 CORTI FRANCOIS, LC/MS , SALIV A cortisol, lc/MS, saliva 0.03 mcg/d L 8-10 AM: 0.04- 0.56 mcg/d L noon- 2 PM: < OR = 0.21 mcg/d L 4-6 PM: < OR = 0.15 mcg/d L 10 PM-1 AM: < OR = 0.09 mcg/d L Plezack e note, Saliv ette( R) (Orde r numbe r: 51.15 34) is not an accep table saliv a colle ction devic e for this assay . We will rejec t all white top Saliv ette( R) colle ction devic es as wrong speci men type. Pleas e conta ct [facility] for the Saliv ette( R) Corti francois with blue screw top (Orde r numbe r: 51.15 34.50 0) if you are still using white top Saliv ette( R). This test was devel oped and its letty tical perfo rmanc e yashira cteri stics have been deter mined by [facility] . It has not been clear ed or appro bryce by FDA. This assay has been valid ated pursu ant to the CLIA regul ation s and is used for clini nimisha purpo ses. Not Available [facility] [address] [address] [place], [address], 10/07/2022 20:35:03 10/04/19 23 10/07/2022 CORTI FRANCOIS, LC/MS , SALIV A cortisol, lc/MS, saliva 0.06 mcg/d L 8-10 AM: 0.04- 0.56 mcg/d L noon- 2 PM: < OR = 0.21 mcg/d L 4-6 PM: < OR = 0.15 mcg/d L 10 PM-1 AM: < OR = 0.09 mcg/d L Pleas e note, Saliv ette( R) (Orde r numbe r: 51.15 34) is not an accep table saliv a colle ction devic e for this assay . We will rejec t all white top Saliv ette( R) colle ction devic es as wrong speci men type. Pleas e conta ct [facility] for the Saliv ette( R) Corti francois with blue screw top (Orde r numbe r: 51.15 34.50 0) if you are still using white top Saliv ette( R). This test was devel oped and its letty tical perfo rmanc e yashira cteri stics have been deter mined by [facility] Capis trano . It has not been clear ed or appro bryce by FDA. This assay has been valid ated pursu ant to the CLIA regul ation s and is used for clini nimisha purpo ses. Not Available [facility] [address] [place], [address], 10/07/2022 20:35:03 03/09/20 23 03/15/2023 DEXAM ETHAS ONE dexamethason e 518 NG/dL Refer ence Range s for Dexam ethas one: Basel ine: Less than 20 ng/dL 1 mg dexam ethas one overn ight: 180-5 50 ng/dL (8:00 -10:0 0 AM) This test was mariama smith and its letty tical perfo rmanc e yashira cteri stics have been deter mined by [facility] michael [facility] Derek Nagyi linda Panfilo kimball . It has not been clear ed or appro bryce by FDA. This assay has been valid ated pursu ant to the CLIA regul ation s and is used for clini nimisha purpo ses. Not Available [employer] [facility] [id number] [place], [address], 03/15/2023 13:07:11 03/09/2003/15/2023 CORTI FRANCOIS, A.M. cortisol, A.M. 0.8 mcg/d L low Refer ence Range 8 a.m. (7-9 a.m.) Speci men: 4.0-2 2.0 Not Available [employer] [facility] [address] [place], [address], 03/15/2023 13:07:12 08/31/19 MRI, brain , w/o contr ast No observ ation record ed. [email or web address] Not Available 2022 15:24:00 11/16/19 23 11/14/2022 CT, adren al, w/ wo contr ast No observ ation record ed. [email or web address] [facility] [address], [place], [address], 11/23/2022 21:23:58 11/16/19 23 11/14/2022 CT, adren al, w/ wo contr ast No observ ation record ed. [facility] [address], [place], [address], 11/23/2022 21:23:58 Result Notes None recorded. Problems Name Problem SNOMED Code Status Onset Date Resolution Date Notes Provider Name and Address Organization Details Recorded Time Weight gain 2118390 Active 2022 Amber Huffman MD [address], [place], [address], Riffyn 3 14:28:00 Empty sella syndrome 884392656 Active 2022 Amber Huffman MD [address], [place], [address], Riffyn 3 14:29:30 Essential hypertension 62057039 Active 2022 Amber Huffman MD [address], [place], [address], Riffyn 3 14:29:59 Fatigue 83143636 Active 2022 Amber Huffman MD [address], [place], [address], Riffyn 3 14:30:46 Irregular periods 55588853 Active 2022 Amber Huffman MD [address], [place], [address], Riffyn 3 14:32:46 Goiter 3757925 Active 2022 Amber Huffman MD [address], [place], [address], Riffyn 3 14:35:13 Abnormal cortisol 444363528 Active 2022 Amber Huffman MD [address], [place], [address], Riffyn 3 21:48:01 Impaired fasting glycemia 896294543 Active 2022 Amber Huffman MD [address], [place], [address], Riffyn 3 10:30:03 Problem Notes None recorded. Procedures Surgical History Date Name Laterality Status Provider Name and Address Organization Details Recorded Time 06/26/19 22 Bladder completed Azeb Farmer RN [facility] Viverae [facility] 08/30/2022 14:09:40 section completed Azeb Farmer RN [facility] 08/30/2022 14:09:03 cholecystectomy completed Azeb Farmer RN [facility] 08/30/2022 14:09:27 Carpal tunnel surgery completed URSULA Holly [facility] 12/06/2022 10:03:55 Imaging Results None recorded. Procedure Notes None recorded. Medical Equipment None Reported. Allergies Allergen ID Allergen Name Allergen Category Reaction Reaction Severity Criticality Documentation Date Start Date Code Code System Note Provider Name and Address Organization Details Recorded Time 67896 Product containin g penicilli n (product) medicatio n Not available Not available Not available 08/30/2022 63825 8001 [facility]ED [facility]18 20252 latex environme nt,medica tion Not available Not available Not available 08/30/2022 88469 91 RxNorm KAI Garcia [facility] 14:03:22 49006 honey bee venom medicatio n Not available Not available Not available 08/30/2022 47575 7 RxNorm KAI Garcia [facility] 14:03:32 Medications Name Sig Start Date Stop Date Status Note LastModified by Organization Details LastModified Time naltrexone 9mg #466003 tablets active Not Available Not Available Not Available fluoxetine 40 mg capsule 08/30 completed Not Available Not Available Not Available tizanidine 2 mg tablet TAKE 1 TABLET BY MOUTH THREE TIMES DAILY 08/30 completed Not Available Not Available Not Available fluconazol e 150 mg tablet TAKE 1 TABLET BY MOUTH NOW. REPEAT DOSE IN 72 HOURS 08/30 completed Not Available Not Available Not Available hydrocodon e 5 mg-acetami nophen 325 mg tablet TAKE 1 TABLET BY MOUTH EVERY 4 HOURS NEEDED FOR PAIN 12/06 completed Not Available Not Available Not Available fluconazol e 200 mg tablet TAKE 1 TABLET BY MOUTH ONCE A WEEK. active Not Available Not Available No t Available rizatripta n 10 mg tablet TAKE 1 TABLET BY MOUTH 1 TIME NEEDED FOR HEADACHE. MAY REPEAT IN 2 HOURS IF NEEDED active Not Available Not Available No t Available topiramate 25 mg tablet TAKE 1 TABLET BY MOUTH TWICE A DAY active Not Available Not Available No t Available amlodipine 5 mg tablet TAKE 1 TABLET BY MOUTH EVERY DAY active Not Available Not Available No t Available sulfametho xazole 800 mg-trimeth oprim 160 mg tablet TAKE 1 TABLET BY MOUTH EVERY 12 HOURS FOR 7 DAYS 12/06 completed Not Available Not Available Not Available doxycyclin e monohydrat e 100 mg tablet TAKE 1 TABLET BY MOUTH TWICE DAILY FOR 7 DAYS 08/30 completed Not Available Not Available Not Available spironolac tone 25 mg tablet TAKE 1 TABLET BY MOUTH DAILY 12/06 completed Not Available Not Available Not Available ketorolac 10 mg tablet TAKE 1 TABLET BY MOUTH EVERY 6 HOURS FOR UP TO 5 DAYS NEEDED FOR MODERATE TO SEVERE PAIN 12/06 completed Not Available Not Available Not Available Nexium 20 mg capsule,de layed release Take 1 capsule every day by oral route. active Not Available Not Available No t Available HydroDiuri l 25 mg tablet Take 1 tablet every day by oral route. active Not Available Not Available No t Available meloxicam 7.5 mg tablet 08/30 completed Not Available Not Available Not Available amoxicilli n 875 mg tablet TK 1 T PO BID TAT 08/30 completed Not Available Not Available Not Available dexamethas one 1 mg tablet TAKE 1 TABLET BY MOUTH AT 10 PM THE NIGHT BEFORE 8 AM CORTISOL. active Not Available Not Available No t Available baclofen 10 mg tablet TAKE 1 TABLET BY MOUTH FOUR TIMES A DAY active Not Available Not Available No t Available tacrolimus 0.1 % topical ointment APPLY TOPICALLY TO THE AFFECTED AREA TWICE DAILY active Not Available Not Available No t Available gabapentin 300 mg capsule 08/30 completed Not Available Not Available Not Available montelukas t 10 mg tablet TAKE 1 TABLET BY MOUTH EVERY DAY FOR 90 DAYS active Not Available Not Available No t Available estradiol 0.01% (0.1 mg/gram) vaginal cream USE ONE GRAM NIGHTLY FOR 2-4 WEEKS, THEN DECREASE TO 2-3 TIMES PER WEEK active Not Available Not Available No t Available norethindr one (contracep tive) 0.35 mg tablet TAKE 1 TABLET BY MOUTH EVERY DAY active Not Available Not Available No t Available celecoxib 100 mg capsule 08/30 completed Not Available Not Available Not Available losartan 100 mg tablet TAKE 1 TABLET BY MOUTH DAILY 12/06 completed Not Available Not Available Not Available spironolac tone 50 mg tablet TAKE 2 TABLETS BY MOUTH ONCE A DAY IN THE MORNING FOR 90 DAYS. active Not Available Not Available No t Available metoclopra mide 10 mg tablet TAKE 1 TABLET BY MOUTH FOUR TIMES DAILY NEEDED FOR NAUSEA 12/06 completed Not Available Not Available Not Available cyclobenza du 5 mg tablet TAKE 1 TABLET BY MOUTH THREE TIMES DAILY NEEDED FOR MUSCLE SPASMS 08/30 completed Not Available Not Available Not Available Premarin 0.625 mg/gram vaginal cream INSERT 0.5 GRAM VAGINALLY AT BEDTIME active Not Available Not Available No t Available cholestyra mine (with sugar) 4 gram powder for susp in a packet active Not Available Not Available Not Available bupropion HCl XL 150 mg 24 hr tablet, extended release TAKE 1 TABLET BY MOUTH EVERY DAY IN THE MORNING 08/30 completed Not Available Not Available Not Available methylphen idate CD 20 mg biphasic 30-70 capsule,ex tended release TAKE 1 CAPSULE BY MOUTH EVERY DAY IN THE MORNING active Not Available Not Available No t Available pregabalin 25 mg capsule TAKE ONE CAPSULE BY MOUTH THREE TIMES DAILY 12/06 completed Not Available Not Available Not Available PreviDent 5000 Sensitive 1.1 %-5 % dental paste 12/06 completed Not Available Not Available Not Available trospium ER 60 mg capsule,ex tended release 24 hr TAKE 1 CAPSULE BY MOUTH EVERY DAY 08/30 completed Not Available Not Available Not Available olopatadin e 0.6 % nasal spray SPRAY 2 SPRAYS INTO EACH NOSTRIL TWICE A DAY FOR 30 DAYS active Not Available Not Available No t Available Auvi-Q 0.3 mg/0.3 mL injection, auto-injec tor INJECT INTO THE MUSCLE ONCE DIRECTED active Not Available Not Available No t Available Uro-MP 118 mg-10 mg-40.8 mg-36 mg capsule TAKE 1 CAPSULE BY MOUTH THREE TIMES DAILY active Not Available Not Available No t Available Annovera 0.15 mg-0.013 mg/24 hr vaginal ring INSERT ONE DEVICE VAGINALLY REMOVE EVERY OF THE MONTH TO CLEAN AND REINSERT DIRECTED. active Not Available Not Available No t Available Flowflex COVID-19 Antigen Home Test kit TEST DIRECTED TODAY 03/07 /2023 completed Not Available Not Available Not Available naltrexone 4.5 mg capsule Take by oral route. active 4 times daily. Not Available Not Available Not Available Vitals Date Recorded Body weight Body height Body mass index (BMI) Heart rate Body temperature Respiratory rate Systolic And Diastolic Provider Name and Address Organization Details Last Updated DateTime 3 005786. 08 g 162.56 cm 40.5 kg/m2 88 /min 98.1 [degF] 14 /min 140/87 mm[Hg] Azeb Farmer RN [facility] [employer] 3 14:12:25 Date Recorded Body height Body mass index (BMI) Body weight Respiratory rate Heart rate Systolic And Diastolic Provider Name and Address Organization Details Last Updated DateTime 3 162.56 cm 39.7 kg/m2 574825. 84 g 16 /min 89 /min 137/89 mm[Hg] URSULA Holly [place] [employer] [facility] [employer] 3 10:06:46 Social History None recorded. Functional Status None recorded. Mental Status None recorded. Family History Relationship Description Onset Age of this Age Resolved Age Notes LastModified by Organization Details LastModified Time Maternal Grandmother Family history of stroke [email or web address] Not available 2022 14:08:10 Father Diabetes mellitus [email or web address] Not available 2022 14:08:17 Mother Congestive heart failure [email or web address] Not available 2022 14:08:23 Mother Hypertensive disorder [email or web address] Not available 2022 14:08:34 Notes:HISTORY OF MANY TYPES OF CANCERS AND AUTOIMMUNE CONDITIONS Medical History Condition Response HEADACHES/MIGRAINES Y Gynecological HistoryNo gynecological history recorded. Obstetrics History GPAL:G 0 P 0 0 0 0 Past Encounters Encounter ID Performer Location Encounter Start Date Encounter Closed Date Diagnosis/Indication Diagnosis SNOMED-CT Code Diagnosis ICD10 Code Diagnosis Note [id number] Amber Huffman MD [facility] [address] [place] [address] 08/30/2022 13:55:21 08/30/2022 14:49:32 Weight gain 6958999 R63.5 Will send for low dose dexa suppressio n testing to screen for hypercorti solic state. Empty sella syndrome 237 269809 E23.6 send for full pituitary panel as she had mild empty sella syndrome found on imaging. Essential hypertension 44792493 I10 Patient is on multiple medication s for blood pressure control. Would recommend he undergo a simple fasting blood test to screen for primary hyperaldos teronism and if found to be positive we could plan to transition to an aldosteron e jimmy and wean off multiple medication s. Patient was provided lab order to obtain fasting before 9 am. Fatigue 80812021 R53.83 Will send for thyroid antibodies to screen for autoimmune thyroid disease in addition to CBC, CMP, ferritin and B12/folate to screen for other potential secondary causes of fatigue. Irregular periods 704879 07 N92.6 Send for full hormone panel to screen for PCOS/hyper androgenis m. Goiter 4314791 E04.9 Will send for baseline thyroid ultrasound as she does have a palpable thyroid and repeat thyroid function panel to assess function. Spent up to 45 minutes preparing to see the patient (eg, review of tests), obtaining and/or reviewing separately obtained history, performing a medically appropriat e examinatio n and evaluation , counseling and educating the patient, ordering medication s, tests, along with documentin g clinical informatio n in the electronic health record, independen tly interpreti ng results and communicat ing results to the patient. RTC in 3-4 months. Patient was provided a handwritte n lab order which contains our fax number. If she chooses to go outside of the [facility] system to obtain labwork she was advised to provide our fax number and my informatio n to the lab she will be obtaining labwork from in order to have her labs properly forwarded over for me to review so there is no loss of follow up due to use of outside network. She was also advised to contact our clinic informing us that she has completed her labwork so we are aware we will need to reach out to the appropriat e laboratory to request her results be forwarded to us so I might have the ability to review and make further medical decision making in her case. She voiced understand ing. Thank you very much for this consultati on. [id number] Amber Huffman MD [facility] [place] [address] [place] [address] 12/06/2022 09:49:43 12/06/2022 10:32:58 Empty sella syndrome 083830972 E23.6 Pituitary panel appears unremarkab le- mildly low IGF1 level but unable to treat for GH deficiency in adulthood so not indicated- otherwise will monitor thyroid and adrenal function. Essential hypertension 03636225 I10 Will trial on higher dose spironolac tone 100 mg daily- patient aware she cannot take losartan in combinatio n due to risk for hyperkalem ia. Will uptitrate to 50 mg daily and patient aware to half her losartan after 1 week stop and transition to high dose spironolac tone - aldosteron e borderline but PAR normal range. repeat DST as she has estrogen hormone therapy which can false elevations . Weight gain 2882820 R63. 5 Repeat DST this summer - 2 months off estrogen therapy for accurate testing. Impaired f asting glycemia 215894750 R73.01 She has not tolerated metformin in the past. Discussed carb counting and how to read food labels. Recommende d patient to utilize the diabetesfo [employer]1.uniRow from the ADA website to help with food preparatio n as this presents ideal carb content per meal so this will make carb counting much easier for patient. Recommende d she incorporat e natural insulin journalism professor s such as pears, apples, cinnamon, jerry and sweet potatoes to help mobilize her endogenous insulin. Recommende d up to 150 minutes of moderate level activity/e xercise weekly. Spent up to 28 minutes preparing to see the patient (eg, review of tests), obtaining and/or reviewing separately obtained history, performing a medically appropriat e examinatio n and evaluation , counseling and educating the patient, ordering medication s, tests, along with documentin g clinical informatio n in the electronic health record, independen tly interpreti ng results and communicat ing results to the patient. RTC in 3-4 months. Patient was provided a handwritte n lab order which contains our fax number. If she chooses to go outside of the [facility] system to obtain labwork she was advised to provide our fax number and my informatio n to the lab she will be obtaining labwork from in order to have her labs properly forwarded over for me to review so there is no loss of follow up due to use of outside network. She was also advised to contact our clinic informing us that she has completed her labwork so we are aware we will need to reach out to the appropriat e laboratory to request her results be forwarded to us so I might have the ability to review and make further medical decision making in her case. She voiced understand ing. Health Concerns Section Related Observation LastModified by Organization Detai ls LastModified Time None Recorded Concern Status LastModified by Organization Details LastModified Time None Recorded Advance Directives Directive None Recorded Payers Insurance Date Sequence Insurance Name Policy Number Policy Sosa Covered Member ID Sosa Member ID Guarantor Name 06/20/2023 1 [employer] - OPEN ACCESS Betzy Andrew [id number] Betzy Andrew 04/06/2023 2 [employer] - [facility] [facility] [id number] Brooks Andrew [id number] Betzy Andrew 12/06/2022 2 [place]: [facility] Betzy Andrew [id number] Betzy Morales 06/20/2023 2 [employer] MULTIPLAN (PPO) Betzy Andrew [id number] Betzy Andrew Notes Date Note Type Note Provider Name and Address Organization Details Recorded Time 08/30/2022 text/html 41 yo female com es in as referral by courtesy of Dr. Shore for management of empty sella syndrome in setting of weight gain and hypertension. She had imaging was completed due to headaches- found to have a partially empty sella. Completed in 06/16 She had no evidence of galactorrhea. She has no hormones to review today. She was found to have swelling around her optic nerve and will be getting CSF relief next week. Her blood pressure is very labile in nature. She has struggled from chronic headaches x 4 years. She has random spotting even when on consistent control. With her weight she has issues. She was dx with PCOS at age of 12 years. She has significant stretch leroy involving her abdomen/underarms and inner thighs. She has no known thyroid issues. She is not sure if she has family hx of thyroid disease. Amber Huffman MD [address] [facility], [facility] [address], [place], [address], [facility] [employer] edo 08/30/2022 15:07:12 12/06/2022 text/html 42 yo female com es in for follow up in management and evaluation of new found impaired fasting glucose, adrenal adenoma and questional hypercortisolism (on estrogen OCP therapy so not reliable testing). at initial visit in August we obtained full hormone panel for pituitary She is planning to remove the estrogen ring and will go on progesterone therapy She has been on metformin in the past and struggles with diarrhea. She had an interstim placed for IBS and incontinence. She has been on inositol and was able to get on this in the past and tolerated well along with caden/FSH stimulators. she has been gluten free and lactos free and eventually AIP- it was not feasible [place] [facility] as prepping was too much to endure. She is having more headaches and high blood pressure- she is on losartan 100 mg daily, amlodipine 5 mg daily and recently PCP started spironolactone 25 mg daily and feels this is not working for her. labs from 09/15:iron sat 15%testosterone 21 ng/dL (SHBG 228 but has estrogen ring)glucose 97 mg/dLCr normalALT 57 U/LIGF 1 normalaldo 12 ng/mlrenin 17.76 ng/ml/hrPAR of 0.7TPO negdheas 69 ug/mlinsulin 24.5 uU/Mlestradiol/progest erone lowprolactin gdymalP08 478 pg/MLvit D 48 ng/MLTSH of 1.66 uIU/mlFT4 of 1.0 ng/dLDST borderline but on estrogen HRT labs from 10/16:salivary cortisol lowacth 10 pg/mL24 hour urine cortisol of 12.4 ug/[address] adrenal found 10 mm left adrenal adenoma and hepatic steatosis Amber Huffman MD [address] [facility], [facility] [address], [place], [address], [place] [facility] [employer] 12/06/2022 14:17:51 OBGyn Episode No OBEpisode recorded.
--- OUTSIDE RECORDS SUMMARY | 2024-12-26 16:29 | XMS_ITS | Encounter Summary ---
Author Organization [facility] Address [address] [place] [address] Phone Care Team Providers Care Vinyl Flooring Installer Name Role Phone Bernabe Shore MD Primary Care Provider [phone] Ole Ryder MD Unavailable [phone] Dandy Ji MD Unavailable [phone] Jordan Rocha MD Unavailable [phone] Princess Diop RN Unavailable UnavailJoan Mars APRN, SERVICE GIRL Unavailable [phone] Reason for Visit * Reason Comments Medication Refill Encounter Details Date Type Department Care Team (Late st Contact Info) Description 10/26/2023 Refill [facility] - Family Medicine [facility] [address] [place] [address] Bernabe Shore MD [address] [address] Medication Refill Social History Tobacco Use Types [...] Telephone Encounter - Meredith Yao RN - 10/27/2023 9:20 AM CDT Medication(s) refilled and signed per [facility] Chronic Medication Refill Standing Order for Pediatricand Adult Patients. Requested Prescriptions Pending Prescriptions Disp Refills amLODIPine (NORVASC) 5 MG Tablet [Pharmacy Med Name: AMLODIPINE BESYLATE 5 MG TAB] 90 Tablet 1 Sig: TAKE 1 TABLET BY MOUTH EVERY DAY Calcium-Channel Blockers Protocol Passed - 10/26/2023 11:44 AM Passed - BP on record in the past year Clinician-entered: BP Readings from Last 3 Encounters: 06/16/23 122/80 05/01/23 122/78 04/03/23 134/88 Patient-entered: No data recorded Passed - Visit with relevant provider in past 12 months or upcoming 90 days Recent Visits Date Type Provider Dept 04/03/23 Office Visit Michelle Zurita APRN, ELECTRIC TRUCK OPERATOR [facility] [place] 12/01/22 Office Visit Bernabe Shore MD [facility] Showing recent visits within past 365 days and meeting all other requirements Future Appointments No visits were found meeting these conditions. Showing future appointments within next 90 days and meeting all other requirements documented in this encounter Plan of Treatment Upcoming Encounters Date Type Department Care Team (Late st Contact Info) Description 02/10/2025 11:00 AM CDT Telemedicine [facility] - Neurology - [place] [address] [place] [address] Joan Pedraza APRN, SERVICE GIRL [address] [place] [address] 03/28/2025 9:30 AM CDT Procedure Visit [facility] - Neurology [facility] [address] [place] [address] Dandy Ji MD [address] [place] [address] 04/07/2025 10:45 AM CDT Office Visit [facility] - Family Medicine [facility] [address] [place] [address] Bernabe Shore MD [address] [address] documented as of this encounter Goals Goal Patient Goal Type Associated Problems Recent Progress Patient-Stated? Author Chronic Disease Management Chronic Disease Management On track(2023 1:33 PM RESEARCH ENGINEER) Candy Vargas, RN Note: To effectively check in with [facility] [employer] Remote Patient Monitoring Hypertension program via text on Monday at 5:00* pm. documented as of this encounter Visit Diagnoses Not on filedocumented in this encounter Additional Health Concerns Assessment Noted Time PHQ-9 Depression Total Score: 0 11/16/19 22 10:24 AM CDT documented as of this encounter Care Teams Vinyl Flooring Installer Relationship Specialty Start Date End Date Bernabe Shore MD [address] [address] PCP - General Family Medicine 08/28/15 Ole Ryder MD [address] [facility] [address] [facility] [address] [place] [address] Obstetrics & Gynecology 03/28/17 Dandy Ji MD [address] [place] [address] Consulting Physician Neurology 09/14/21 Jordan Rocha MD [address] [place] [address] Internal Medicine 04/13/24 Princess Diop RN [place] [employer] 05/02/24 05/02/24 Joan Pedraza APRN, SERVICE GIRL [address] [place] [address] Nurse Practitioner Advanced Practice Nurse 08/13/24 documented as of this encounter
--- OUTSIDE RECORDS SUMMARY | 2024-12-26 16:29 | XMS_ITS | Continuity of Care Document ---
Author Organization [facility] Address [address] [place] [address] Phone Care Team Providers Care Patch Press Operator Name Role Phone Todd PT, CMPT, Darron Unavailable Jayde vailable Procedures Procedure Date Therapeutic Exercise Biofeedback Kyra/Uro/Rect Progress Note Therapeutic Exercise Biofeedback Kyra/Uro/Rect Therapeutic Exercise Manual Therapy Therapeutic Exercise Manual Therapy PT Evaluation Moderate Complexity Therapeutic Exercise Advance Directives Directive Yes / No Effective Date File Name No Information Encounters Encounter Description Practice Location Reason(s) For Visit Diagnoses Date Provider Providers Copied on Encounter [facility] [address] [facility] [address], [place], [place], [id number], tel:[phone] [place] No Information 7 John-James es Darron. [address] [facility], [facility] [address], [place], [facility], [place]. tel: [phone] [address] [employer], [place], [place], [id number], tel:[phone] [place] No Information 7 John-James es Darron. [address] [facility], [address], [place], [facility], [place]. tel: [phone] [facility] [address] [place], [place] [address], [place], [place], [id number], tel:[phone] [place] No Information 7 John-James es Darron. [address] [facility], [address], [place], [facility], . tel: [phone] [facility], [place], [place], [id number], tel:[phone] [place] No Information Feb-0 7 John-James es Darron. [address] [place] [address], [address], [place], [facility], . tel: [phone] [facility] [address], [place], [place], [id number], tel:[phone] [place] Other specified disorders of muscleOther specified disorders of urinary systemPain in right hipUrgency of urinationStress incontinence (female) (male)MyalgiaUrge incontinenceIntersti tial cystitis (chronic) without hematuria 7 John-James es Darron. [address] [place] [address], [facility] [address], [place], [facility], . tel: [phone] Family History Family Member Type Diagnosis Age At Onset No Information Payers Payer name Insurance type Covered republican ID Authorluza jairojoel(s) [employer] CI [id number] Medicaid OON Write Off CI 00 Social History Type Description Quantity Date Captured Comments Sex Female Smoking Status No Information Chief Complaint And Reason For Visit No Information Reason For Referral Reason For Referral No Information History Of Present Illness Encounter Date Complaint History Of Prese nt Illness No Information Functional Status Date Functional Assessmen t No Information Instructions Date Instruction Additional Infor mation No Information Assessments Type Assessment Date No Information Patient Care Teams Name Effective Dates (start - stop) Status Members No Information
--- OUTSIDE RECORDS SUMMARY | 2024-12-26 16:30 | XMS_ITS | Encounter Summary ---
Author Organization [facility] Address [address] [place] [place] [address] Phone Care Team Providers Care Cooper Helper Name Role Phone Bernabe Shore MD Primary Care Provider Ole Ryder MD Unavailable [phone] Dandy Ji MD Unavailable Jordan Rocha MD Unavailable [phone] Princess Diop RN Unavailable UnavailJoan Mars APRN, BELT CHANGER Unavailable [phone] Reason for Visit * Reason Comments Medication Refill Encounter Details Date Type Department Care Team (Late st Contact Info) Description 10/08/2020 Refill [facility] - Family Medicine [facility] [address] [place] [address] Bernabe Shore MD [address] [address] Medication Refill Social History Tobacco Use Types Packs/Day Years Used Date Smoking Tobacco: Former Cigarettes 1 13 0 09/15/2000 - 09/15/2013 Smokeless Tobacco: Never Alcohol Use Standard Drinks/Week Comments No 0 (1 standard drink = 0.6 oz pur e alcohol) socially PHQ-2 Answer Date Recorded Total Score - Questions 1-9 0 10/2019 Sexually Active Control Partners Comments Yes Male Comments No Sex and Gender Information Value Date Recorded Sex Assigned at Not on file Legal Sex Female 10:41 PM CDT Gender Identity Not on file Sexual Orientation Not on file documented as of this encounter Miscellaneous Notes * Telephone Encounter - Bernabe Shore MD - 10/08/2020 3:58 PM CDT Prescription approved. Please call in * Telephone Encounter - Meredith Yao RN - 10/08/2020 3:57 PM CDT Medication failed the protocol, provider to review and approve the medication order if appropriate. Requested Prescriptions Pending Prescriptions Disp Refills propranolol (INDERAL LA) 60 MG CAPSULE SR 24 HR [Pharmacy Med Name: PROPRANOLOL ER 60 MG CAPSULE] 90 Capsule 3 Sig: TAKE 1 CAPSULE BY MOUTH EVERY DAY Beta-Blockers Protocol Failed - 10/08/2020 3:52 PM Failed - Has EKG in past 24 months Passed - BP on record in the past year Clinician-entered: BP Readings from Last 3 Encounters: 08/13/20 128/80 07/06/20 122/90 04/27/20 122/80 Patient-entered: No data recorded Passed - Visit with relevant provider in past 12 months or upcoming 90 days Recent Visits Date Type Provider Dept 11/29/19 Office Visit Bernabe Shore MD [facility] Showing recent visits within past 365 days and meeting all other requirements Future Appointments No visits were found meeting these conditions. Showing future appointments within next 90 days and meeting all other requirements documented in this encounter Plan of Treatment Upcoming Encounters Date Type Department Care Team (Late st Contact Info) Description 02/10/2025 11:00 AM CDT Telemedicine [facility] - Neurology [facility] [address] [place] [address] Joan Pedraza APRN, BELT CHANGER [address] [place] [address] 03/28/2025 9:30 AM CDT Procedure Visit [facility] - Neurology [facility] [address] [place] [address] Dandy Ji MD [address] [place] [address] 04/07/2025 10:45 AM CDT Office Visit [facility] Family Medicine [facility] [address] [place] [address] Bernabe Shore MD [address] [address] documented as of this encounter Visit Diagnoses Not on filedocumented in this encounter Additional Health Concerns Infection Onset Date Last Indicated Resolved Time COVID - 19 04/29/2022 04/29/2022 05/09/2022 12:1 6 AM HEALTHCARE MANAGEMENT CONSULTANT COVID - 19 06/16/2023 06/16/2023 06/26/2023 12:1 6 AM HEALTHCARE MANAGEMENT CONSULTANT Assessment Noted Time PHQ-9 Depression Total Score: 0 11/29/19 8:49 AM CDT documented as of this encounter Care Teams Cooper Helper Relationship Specialty Start Date End Date Bernabe Shore MD [address] [address] PCP - General Family Medicine 08/28/15 Ole Ryder MD [address] [facility] [address] [place] [address] Obstetrics & Gynecology 03/28/17 Dandy Ji MD [address] [place] [address] Consulting Physician Neurology 09/14/21 Jordan Rocha MD [address] [place] [address] Internal Medicine 04/13/24 Princess Diop RN [place] [employer] [employer] Specialist 05/02/24 05/02/24 Joan Pedraza APRN, BELT CHANGER [address] [place] [address] Nurse Practitioner Advanced Practice Nurse 08/13/24 documented as of this encounter
--- OUTSIDE RECORDS SUMMARY | 2024-12-26 16:30 | XMS_ITS | Clinical Summary ---
Author Organization [facility] Address [address], [facility] [address] [place] [address] Phone Care Team Providers Care Catering Associate Name Role Phone Bernabe Shore MD Primary Care Provider [phone] Ole Ryder MD Unavailable [phone] Dandy Ji MD Unavailable [phone] Jordan Rocha MD Unavailable [phone] Joan Pedraza APRN, PRESIDENT AND CHIEF EXECUTIVE OFFICER Unavailable [phone] Allergies Active Allergy Reactions Criticality Noted Date Comments Bee Venom Hives,Itching,Swelling 11/30/1983 Latex Unknown,Itching,Anaphylaxis Penicillins Hives,Itching 08/28/2015 Medications montelukast (SINGULAIR) 10 MG Tablet Take 10 mg by mouth every evening. Active EPINEPHrine (EPIPEN) 0.3 MG/0.3ML Solution Auto-injector 0.3 mg by Intramuscular route once as needed. Active esomeprazole (NexIUM) 20 MG CAPSULE DELAYED RELEASE Take 20 mg by mouth daily. Active fexofenadine (ELENA) 180 MG Tablet Take 180 mg by mouth every 21 days. 07/05/19 Active Multiple Vitamin (Multivitamin Adult) Tablet 07/26/19 Active Olopatadine HCl 0.6 % Solution SPRAY 2 SPRAYS INTO EACH NOSTRIL TWICE A DAY FOR 30 DAYS 07/27/19 22 Active olopatadine (PATADAY) 0.2 % Solution Place 1 Drop in affected eye(s) daily. Active Naltrexone HCl, Pain, 4.5 MG Capsule Take 9 mg by mouth 3 times daily (before meals). 07/08/19 23 Active NASAL WASH NA by Nasal route. As directed as needed Active acetaminophen (TYLENOL) 650 MG Tablet Controlled Release Take 1,300 mg by mouth 3 times daily. Active cetirizine (ZyrTEC Allergy) 10 MG Tablet Take 1 Tablet by mouth daily. Active ibuprofen (MOTRIN) 200 MG Tablet Take 400 mg by mouth every 8 hours as needed. Active X-Byebljesnilm-E lgae-B12-B6 (Metanx) 3-90.314-2-35 MG Capsule Take 1 Capsule by mouth daily. Active Meth-Hyo-M Bl-Na Phos-Ph Tobi (Uribel) 118 MG Capsule Take 1 Capsule by mouth 4 times daily. Active tacrolimus (PROTOPIC) 0.1 % Ointment See Admin Instructions. 1 application topically 2 times a day for 30 days Active diazePAM (VALIUM) 2 MG Tablet Take 2 mg by mouth as needed. Active venlafaxine (EFFEXOR-XR) 75 MG CAPSULE SR 24 HR Take 1 Capsule by mouth daily. 90 Capsule 3 06/09/20 24 Active Testosterone 100 MG PELLET 06/17/20 24 Active spironolactone (ALDACTONE) 50 MG Tablet TAKE 1 TABLET BY MOUTH IN THE MORNING AND IN THE EVENING 180 Tablet 09/15/19 25 Active ondansetron (ZOFRAN-ODT) 4 MG TABLET DISPERSIBLE Take 1 Tablet by mouth every 8 hours as needed for Nausea - 1st line. 10 Tablet 10/05/19 25 Active Tirzepatide-Weig ht Management (Zepbound) 7.5 MG/0.5ML Solution by Subcutaneous route. Active terbinafine (LamISIL) 250 MG Tablet Take 1 Tablet by mouth daily for 90 days. 90 Tablet 10/08/19 25 025 Active Ubrogepant (Ubrelvy) 100 MG TabletIndication s:Migraine Take 1 tab by mouth as needed for migraine or headache. May repeat in 2 hrs if no relief. Indications: Migraine Headache 16 Tablet 5 11/12/19 25 Active Galcanezumab-gnl m (Emgality) 120 MG/ML Solution Auto-injectorInd ications:Chronic migraine with aura without status migrainosus, not intractable 120 mg by Subcutaneous route every 28 days for 28 days. 1.12 mL 1 12/10/19 25 025 Active amLODIPine Besy-Benazepril HCl 10-40 MG CapsuleIndicatio ns:Essential hypertension Take 1 Capsule by mouth daily. 90 Capsule 1 11/30/19 25 Active amLODIPine Besy-Benazepril HCl 10-40 MG CapsuleIndicatio ns:Essential hypertension Take 1 Capsule by mouth daily. 90 Capsule 08/23/19 25 025 Discontin ued([facility] Hospital, Clinic, or Other Facility Administered Medication Ordered Dose Route Frequency Start Date End Date Status botulinum Toxin Type A (BOTOX) injection 200 UnitsIndications:Chronic migraine with aura without status migrainosus, not intractable,Chronic migraine without aura without status migrainosus, not intractable 200 Units IJ ONCE 12/25/2024 12/25/2024 Ended Active Problems Problem Noted Date Diagnosed Date 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 Vestibular migraine 01/16/2024 Adenoma of left adrenal gland 12/19/2023 Multiple thyroid nodules 12/19/2023 Empty sella syndrome 08/29/2022 Essential hypertension 08/29/2022 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 We discussed and will defer ultrasound at this time. Anxiety and depression 05/22/2018 Cigarette nicotine dependence without complicati on 05/22/2018 Acute psychosis 03/15/2018 Crohn's disease of colon with complication 03/15 Chronic migraine without aura, not intractable 0 03/08/2018 Closed fracture of right ankle with routine heal ing 01/19/2016 Depression 08/28/2015 Gastroesophageal reflux disease without esophagi tis 08/28/2015 Physical exam 08/28/2015 PCOS (polycystic ovarian syndrome) 03/07/2014 JOSE (obstructive sleep apnea) Overview (06/08/2015): With AHI 5 Resolved Problems Problem Noted Date Diagnosed Date Resolved Date Intractable migraine with au ra with status migrainosus 05/22/2018 05/22/2018 Encounters Date Type Department Care Team Description 12/26/2024 Telephone [facility] [address] [place] [address] Joan Pedraza APRN, PRESIDENT AND CHIEF EXECUTIVE OFFICER 12/25/2024 10:30 AM CDT Procedure Visit [facility] [address] [place] [address] Dandy Ji MD Chronic migraine with aura without status migrainosus, not intractable (Primary Dx); Chronic migraine without aura without status migrainosus, not intractable Discharge Disposition: Discharged to home or Selfcare 12/23/2024 Travel 12/20/2024 Telephone [facility] Special[facility] [address] [place] [address] Joan Pedraza APRN, PRESIDENT AND CHIEF EXECUTIVE OFFICER Prior Authorization (BOTOX) 11/11/2024 11:00 AM CDT Telemedicine [facility] [address] [place] [address] Joan Pedraza APRN, PRESIDENT AND CHIEF EXECUTIVE OFFICER Chronic migraine with aura without status migrainosus, not intractable (Primary Dx) 11/11/2024 Travel 11/01/2024 12:30 PM CDT Telemedicine [facility] [address] [place] [address] Sameera Khan APRN, INFECTIOUS DISEASE TECHNICIAN Essential hypertension (Primary Dx) 10/30/2024 Travel 10/22/2024 2:00 PM CDT Telemedicine [facility] [address] [place] [address] Wen Blackmon LCSW Anxiety and depression (Primary Dx) Discharge Disposition: Discharged to home or Selfcare 10/22/2024 Travel 10/10/2024 2:00 PM CDT Telemedicine [facility] [address] [place] [phone] Wen Blackmon LCSW Anxiety and depression (Primary Dx) Discharge Disposition: Discharged to home or Selfcare 10/10/2024 Travel 10/07/2024 9:15 AM CDT Office Visit [facility] [address] [place] [address] Bernabe Shore MD Empty sella syndrome (HCC) (Primary Dx); Chronic migraine without aura with status migrainosus, not intractable; Hypertension, unspecified type; Depression, unspecified depression type Discharge Disposition: Discharged to home or Selfcare 10/06/2024 Travel 10/04/2024 10:30 AM CDT Procedure Visit [facility] [address] [place] [address] Dandy Ji MD Chronic migraine with aura without status migrainosus, not intractable (Primary Dx); Chronic migraine without aura without status migrainosus, not intractable Discharge Disposition: Discharged to home or Selfcare 10/04/2024 Telephone [facility] [address] [place] [address] Joan Pedraza APRN, PRESIDENT AND CHIEF EXECUTIVE OFFICER 10/03/2024 Travel 09/30/2024 Telephone [facility] [address] [place] [phone] Christophe, [facility] Appointment 09/26/2024 12:30 PM CDT Telemedicine [facility] [address] [place] [phone] Valeriano Shine, YESI, INFECTIOUS DISEASE TECHNICIAN Essential hypertension (Primary Dx) 09/26/2024 Travel from Last 3 Months Immunizations Immunization Administration Dates Next Due Covid-19 Vaccine, Vector-nr, Rs-ad26, Pf, 0.5 Ml (ANGEL/J&J) 10/01/2020 Human Papillomavirus (HPV) 9-valent Vaccine 07/28,06/14/2024 Influenza Vaccine 02/28/2014,03/15/2013,05/26/20 12 Influenza Vaccine, Quadrivalent, PF 03/15/2022,0 03/15/2021,03/08/2016 Influenza, Seasonal, Injectable, Undefined 03/15,05/26/2012 Influenza,Split Virus,Trivalent,Injectable,PF 04/19/2024 MMR Vaccine 03/15/2013 PUR FLU 3+ YRS PRES FREE QUAD IM 03/08/2016 Pneumococcal Vaccine Adult - 23 Valent 2 TB Skin Test 09/06/2016 TDAP Vaccine 03/28/2017 Zoster Vaccine Recombinant 07/01/2022 Family History Medical History Relation Name Comments Diabetes Father Jarett Hypertension Father Jarett Cancer Maternal Aunt Nurys Breast Cancer Maternal Grandfather Cristhian Lung, C olon Cancer Maternal Grandmother Amelia Skin Rheumatoid Arthritis Maternal Grandmother Amelia And Grandma Great Stroke Maternal Grandmother Amelia Congestive Heart Failure Mother Marycruz Endometriosis Mother Marycruz High Cholesterol Mother Marycruz Hypertension Mother Marycruz Osteoarthritis Mother Marycruz Diabetes Paternal Grandmother Yoanna Hypertension Paternal Uncle Romario Vasculitis Relation Name Status Comments Father Jarett Maternal Aunt Nurys Maternal Grandfather Cristhian Maternal Grandmother Amelia Mother Marycruz Alive Paternal Grandmother Yoanna Paternal Uncle Romario Social History Tobacco Use Types Packs/Day Years Used Date Smoking Tobacco: Former Cigarettes 1 15 0 09/15/2000 - 09/15/2013 Smokeless Tobacco: Never Tobacco Cessation:Counseling Given: No Alcohol Use Standard Drinks/Week Comments Not Currently 1 (1 standard drink = 0.6 oz pur e alcohol) socially [facility] Utilities Answer Date Recorded In the past 12 months has ITS Compliance, gas, oil, or water [employer] threatened to shut off services in your home? No 10/06/2024 Social Connection and Isolation Panel Answer Date Recorded In a typical week, how many times do you talk on the phone with family, friends, or neighbors? More than three times a week 10/06/2024 How often do you get togethe r with friends or relatives? Three times a week 10/06/2024 How often do you attend chur ch or restoration services? 1 to 4 times per year 10/06/2024 Do you belong to any clubs o r organizations such as jehovah's witness groups, unions, fraternal or athletic groups, or school groups? Yes 10/06/2024 How often do you attend meet ings of the clubs or organizations you belong to? More than 4 times per year 10/06/2024 Are you , , di vorced, , never , or living with a partner? 10/06/2024 AUDIT-C Answer Date Recorded Q1: How often do you have a drink containing alc ohol? Monthly or less 10/06/2024 Q2: How many drinks containi ng alcohol do you have on a typical day when you are drinking? 1 or 2 10/06/2024 Q3: How often do you have si x or more drinks on one occasion? Never 10/06/2024 Overall Financial Resource Strain (CARDIA) Answe r Date Recorded How hard is it for you to pa y for the very basics like food, housing, medical care, and heating? Hard 10/06/2024 PHQ-2 Answer Date Recorded Total Score - Questions 1-9 0 03/27 [facility] - Occupational Stress Questionnaire Answer Date Recorded Do you feel stress - tense, restless, nervous, or anxious, or unable to sleep at night because your mind is troubled all the time - these days? To some extent 10/06/2024 Exercise Vital Sign Answer Date Recorde d On average, how many days pe r week do you engage in moderate to strenuous exercise (like a brisk walk)? 0 days 10/06/2024 On average, how many minutes do you engage in exercise at this level? 0 min 10/06/2024 Hunger Vital Sign Answer Date Recorded Within the past 12 months, y ou worried that your food would run out before you got the money to buy more. Never true 10/07/19 25 Within the past 12 months, t he food you bought just didn't last and you didn't have money to get more. Never true 10/06/2024 PRAPARE - Transportation Answer Date Re corded In the past 12 months, has l ack of transportation kept you from medical appointments or from getting medications? No 09/24 In the past 12 months, has l ack of transportation kept you from meetings, work, or from getting things needed for daily living? No 10/06/2024 Housing Stability Vital Sign Answer Sahil e Recorded In the last 12 months, was t here a time when you were not able to pay the mortgage or rent on time? No 10/06/2024 In the past 12 months, how m any times have you moved where you were living? 0 10/06/2024 At any time in the past 12 m [facility], were you homeless or living in a mcc (including now)? No 10/06/2024 Education Answer Date Recorded What is the [...] on file Sexual Orientation Not on file Last Filed Vital Signs Vital Sign Reading Time Taken Comments Blood Pressure 124/68 10/07/2024 9:25 AM CDT Pulse 93 10/07/2024 9:25 AM CDT Temperature 36.4 C (97.6 F) 10/07/2024 9:25 AM CDT Respiratory Rate 16 10/07/2024 9:25 AM CDT Oxygen Saturation 98% 10/07/2024 9:25 AM CDT Inhaled Oxygen Concentration - - Weight 101.1 kg (222 lb 12.8 oz) 10/07/2024 9:25 AM CDT Height 162.6 cm (5' 4) 10/07/2024 9:25 AM CDT Body Mass Index 38.24 10/07/2024 9:25 AM CDT Plan of Treatment Upcoming Encounters Date Type Department Care Team (Late st Contact Info) Description 02/10/2025 11:00 AM CDT Telemedicine [facility] [place] [address] Joan Pedraza APRN, PRESIDENT AND CHIEF EXECUTIVE OFFICER [address] [place] [address] 03/28/2025 9:30 AM CDT Procedure Visit [facility] [address] [place] [phone] Dandy Ji MD [address] [place] [address] 04/07/2025 10:45 AM CDT Office Visit [facility] [address] [place] [address] Bernabe Shore MD [address] [address] Health Maintenance Due Date Last Done Comments Hepatitis C Virus (HCV) Screening 1982 Hepatitis B Immunization (1 of 3 - 19+ 3-dose series) 2001 SARS-COV-2 Immunization ( season) 2024 12/17/2021, 05/07/2021, 10/01/2020 Pap Smear 06/07/2024 06/07/2021, 02/24, 03/04/2019 Mammogram 06/24/2024 06/24/2023 Influenza Immunization (#1) 02/24/202503/27, 03/15/2022, 03/15/2021, Additional history exists Cervical Cancer Screening (CCS) 03/10/2025 HPV/Cotest 03/10/2025 03/10/2020, 03/04/2019 Td Immunization Every 10 Years (Adults With 1 Tdap) 03/28/2027 03/28/2017 Respiratory Syncytial Virus (RSV) Immunization (Adult) (1 - 1-dose 75+ series) 2057 Pneumococcal Immunization Combined Aged Out 05/26/2012 No longer eligible based on patient's age to complete this topic Discussion re Starting/Frequency of Mammograms Completed 06/24/2023 Human Papillomavirus (HPV) Immunization Completed 12/11/2024, 08/23/2024, 06/14/2024 Meningococcal Immunization (ACWY) Aged Out No longer eligible based on patient's age to complete this topic Rotavirus Immunization Aged Out No lo nger eligible based on patient's age to complete this topic Goals Goal Patient Goal Type Associated Problems Recent Progress Patient-Stated? Author Chronic Disease Management Chronic Disease Management On track(2023 1:33 PM INSPECTOR HOT FORGINGS) No Candy Souza RN Note: To effectively check in with [facility] Hypertension program via text on Monday at 5:00* pm. Chronic Disease Management Chronic Disease Management On track(2023 1:38 PM INSPECTOR HOT FORGINGS) No Princess Diop RN Note: [facility] RPM Hypertension Goal Goal: To effectively manage my hypertension by slowly increasing my activity as tolerated Measurable (SMART) actions patient plans to take to work towards goal includes: Continue doing Yoga on Monday. Add in chair exercises Monday and Monday for 10 minutes. She will pick out what exercises she enjoys on the worksheet. Now have bike to use. Progress of Goal: new goal Notify Care Team if you experience: Severe headache, extreme fatigue, new onset of dizziness or weakness, or if you have trouble doing a routine activity, such as cooking dinner, cleaning or taking out the trash Depression and Anxiety Management Depression No Wen Blackmon LCSW Note: Goal/Objective: Decrease symptoms of depression and anxiety stemming from trauma and change through supportive CBT skills building and trauma informed care. Anticipated Time Frame for Goal Completion: 3 months Medical Devices Implanted Type Area Industrial Mechanic Device Identifier Shelf Expiration Date Model / Serial / Lot Implant-12/24/2021 Implanted:Qty: 1 on 12/24/2021 IMPLANT Right: Sacrum [employer] / NEUROLOGIC TECHNOL [id number] A1 LEADS / [id number] H / Description:Interstim 13230- LEADS [id number] Conditional-See manufacturers conditions on Med[employer] website for MRI safety Procedures Procedure Name Priority Date/Time Associated Diagnosis Comments CHEMODENERV MUSCLE(S) BILAT FACIAL/TRIGEMINAL/CERV SPINE Routine 12/25/2024 10:30 AM CDT Chronic migraine with aura without status migrainosus, not intractable OPTOMETRY CONSULT 12/04/2024 12: 00 AM CDT OPHTHALMOLOGY CONSULT 11/28/2024 12:00 AM CDT CHEMODENERV MUSCLE(S) BILAT FACIAL/TRIGEMINAL/CERV SPINE Routine 10/04/2024 10:30 AM CDT Chronic migraine with aura without status migrainosus, not intractable MAMMOGRAM BILATERAL GENERIC 06/24/2023 12:00 AM INSPECTOR HOT FORGINGS HUMAN PAPILLOMA VIRUS (HPV) 03/10/2020 12:00 AM CDT PATHOLOGY CYTOLOGY SET UP PERSON 0 12:00 AM CDT from Last 3 Months or Most Recently Relevant to Health Maintenance Results * CHEMODENERV MUSCLE(S) BILAT FACIAL/TRIGEMINAL/CERV SPINE (12/25/2024 10:30 AM CDT) Narrative Dandy Ji MD - 12/25/2024 10:30 AM CDT Dandy Ji MD 12/25/2024 5:30 PM Betzy presents for administration of botox for treatment of chronic migraines. Frequency of headaches compared to pre-Botox: significantly improved Function since receiving Botox: significantly improved Wasted amount of Botox: 45 Her skin was prepped with an alcohol wipe. Botox was diluted with 200 units into 4 ml saline and administered with a 30 gauge 1/2 inch needle to the following sites: To the corrugators 10 units was divided into two sites. To the procerus 5 units was admistered to 1 site To the frontalis 20 units was divided into 4 sites To the temporalis 40 units was divided into 8 sites To the Occipitalis 30 units was divided into 6 sites To the cervical paraspinals 20 units divided into 4 sites To the trapezius 30 units divided into 6 sites. This procedure has been fully reviewed with the patient and written informed consent has been obtained. Patient tolerated the procedure with no complications. Dandy Ji MD MD - SURGERY Final Result * OPTOMETRY CONSULT (12/04/2024 12:00 AM CDT) 12/04/2024 us Provider Scan GENERIC SCAN ORDERS CONSULT Carola l Result Performing Organization Address City/[facility]/ZIP Co de Phone Number SCAN * OPHTHALMOLOGY CONSULT (11/28/2024 12:00 AM CDT) 11/28/2024 Provider Scan GENERIC SCAN ORDERS CONSULT Carola l Result Performing Organization Address [facility] Co de Phone Number SCAN * CHEMODENERV MUSCLE(S) BILAT FACIAL/TRIGEMINAL/CERV SPINE (10/04/2024 10:30 AM CDT) Narrative Dandy Ji MD - 10/04/2024 10:30 AM CDT Dandy Ji MD 10/04/2024 4:06 PM Betzy presents for administration of botox for treatment of chronic migraines. Frequency of headaches compared to pre-Botox: significantly improved Function since receiving Botox: significantly improved Wasted amount of Botox: 45 Her skin was prepped with an alcohol wipe. Botox was diluted with 200 units into 4 ml saline and administered with a 30 gauge 1/2 inch needle to the following sites: To the corrugators 10 units was divided into two sites. To the procerus 5 units was admistered to 1 site To the frontalis 20 units was divided into 4 sites To the temporalis 40 units was divided into 8 sites To the Occipitalis 30 units was divided into 6 sites To the cervical paraspinals 20 units divided into 4 sites To the trapezius 30 units divided into 6 sites. This procedure has been fully reviewed with the patient and written informed consent has been obtained. Patient tolerated the procedure with no complications. Dandy Ji MD MD - SURGERY Final Result * MAMMOGRAM BILATERAL MISCELLANEOUS (06/24/2023 12:00 AM INSPECTOR HOT FORGINGS) 06/24/2023 Bernabe Shore MD IMG MAMMO ORDERABLES Final Re sult Performing Organization Address [facility] Co de Phone Number SCAN * PATHOLOGY CYTOLOGY SET UP PERSON (03/10/2020 12:00 AM CDT) 03/10/2020 us Provider Scan PATHOLOGY/CYTOLOGY ORDERABLES Fi nal Result [facility] * HUMAN PAPILLOMA VIRUS (HPV) (03/10/2020 12:00 AM CDT) 03/10/2020 us Provider Scan LAB SEND OUTS Final Result [facility] from Last 3 Months or Most Recently Relevant to Health Maintenance Insurance MEDICAID [facility] [facility] Care Teams Catering Associate Relationship Specialty Start Date End Date Bernabe Shore MD [address] [place] [address] PCP - General Family Medicine 08/28/15 Ole Ryder MD [address] [place] [address] Obstetrics & Gynecology 03/28/17 Dandy Ji MD [address] [place] [address] Consulting Physician Neurology 09/14/21 Jordan Rocha MD [address] [place] [address] Internal Medicine 04/13/24 Joan Pedraza, FACULTY SUPPORT COORDINATOR, PRESIDENT AND CHIEF EXECUTIVE OFFICER [address] [place] [address] Nurse Practitioner Advanced Practice Nurse 08/13/24
--- OUTSIDE RECORDS SUMMARY | 2024-12-26 16:30 | XMS_ITS | Clinical Summary ---
Author Organization [facility] Health Address [address] [place] [address] Care Team Providers Care Tire Repairman Name Role Phone Unavailable Primary Care Provider Unavailabl e Social History Tobacco Use Types Packs/Day Years Used Date Smoking Tobacco: Never Assessed Comments Unknown Sex and Gender Information Value Date Recorded Sex Assigned at Not on file Legal Sex Female 1:19 AM PST Gender Identity Not on file Sexual Orientation Not on file Plan of Treatment Not on file Insurance [employer] PPO
--- OUTSIDE RECORDS SUMMARY | 2024-12-26 16:30 | XMS_ITS | Encounter Summary ---
Author Organization [facility] Address [address] [place] [address] Phone Care Team Providers Care Car Pusher Name Role Phone Bernabe Shore MD Primary Care Provider [phone] Ole Ryder MD Unavailable [phone] Dandy Ji MD Unavailable [phone] Jordan Rocha MD Unavailable [phone] Joan Pedraza APRN, CONTRACT SHELTERED WORKSHOP SUPERVISOR Unavailable [phone] Reason for Visit * Reason Comments Botox Injection * Consult, Test & Initiate Treatment (Routine) - Authorized Specialty Diagnoses / Procedures Referred By Contac t Referred To Contact Diagnoses Chronic migraine with aura without status migrainosus, not intractable Chronic migraine without aura without status migrainosus, not intractable Joan Pedraza, NEWS REEL CAMERAMAN, CONTRACT SHELTERED WORKSHOP SUPERVISOR [address] [place] [address] Phone: tel: fax: Referral ID Status Reason Start Date Expiration Date V isits Requested Visits Authorized [id number] Authorized 10/04/2024 1 4 Encounter Details Date Type Department Care Team (Late st Contact Info) Description 12/25/2024 10:30 AM CDT [facility] #2 [place] [address] Dandy Ji MD [address]2 [place] [address] Chronic migraine with aura without status migrainosus, not intractable (Primary Dx); Chronic migraine without aura without status migrainosus, not intractable Discharge Disposition: Discharged to home or Selfcare Social History Tobacco Use Types Packs/Day Years Used Date Smoking Tobacco: Former Cigarettes 1 15 0 09/15/2000 - 09/15/2013 Smokeless Tobacco: Never Alcohol Use Standard Drinks/Week Comments Not Currently 1 (1 standard drink = 0.6 oz pur e alcohol) socially [facility] Utilities Answer Date Recorded In the past 12 months has e electric, gas, oil, or water company threatened to shut off services in your [...] week 10/06/2024 How often do you attend [facility] or congregational services? 1 to 4 times per year 10/06/2024 Do you belong to any clubs o r organizations such as caodaism groups, unions, fraternal or athletic groups, or [...] Recorded Total Score - Questions 1-9 0 10/2 10/2023 [facility] Occupat ional [facility] - Occupational Stress Questionnaire Answer Date Recorded [...] any time in the past 12 m [facility], were you homeless or living in a intermediate (including now)? No 10/06/2024 Education Answer Date [...] on file documented as of this encounter Procedure Notes * Dandy Ji MD - 12/25/2024 10:30 AM CDTAssociated Order(s): CHEMODENERV MUSCLE(S) BILAT FACIAL/TRIGEMINAL/CERV SPINE Betzy presents for administration of botox for [...] Patient tolerated the procedure with no complications. documented in this encounter Plan of Treatment Upcoming Encounters Date Type Department Care Team (Late st Contact Info) Description 02/10/2025 11:00 AM CDT Telemedicine [facility] Neurology [facility] [address] [place] [address] Joan Pedraza APRN, CONTRACT SHELTERED WORKSHOP SUPERVISOR [address] [place] [address] 03/28/2025 9:30 AM CDT Procedure Visit [facility] Neurology [facility] #2 [place] [address] Dandy Ji MD [address]2 [place] [address] 04/07/2025 10:45 AM CDT Office Visit [facility] Family Medicine [facility] #2 [place] [address] Bernabe Shore MD [address] [address] documented as of this encounter Goals Goal Patient Goal Type Associated Problems Recent Progress Patient-Stated? Author Chronic Disease Management Chronic Disease Management On track(2023 1:33 PM PRODUCT SAFETY TESTER) No Candy Souza, RN Note: To effectively check in with [facility] Remote Patient Monitoring Hypertension program via text on Monday at 5:00* pm. Chronic Disease Management Chronic Disease Management On track(2023 1:38 PM PRODUCT SAFETY TESTER) No Princess Diop, RN Note: [facility] Connect RPM Hypertension [...] Time Frame for Goal Completion: 3 months documented as of this encounter Procedures Procedure Name Priority Date/Time Associated Diagnosis Comments CHEMODENERV MUSCLE(S) BILAT FACIAL/TRIGEMINAL/CE RV SPINE Routine 12/25/2024 10:30 AM CDT Chronic migraine with aura without status migrainosus, not intractable documented in this encounter Results * CHEMODENERV MUSCLE(S) BILAT FACIAL/TRIGEMINAL/CERV SPINE (12/25/2024 10:30 AM CDT) Dandy Taylor MD - 12/25/2024 10:30 AM CDT Dandy [...] procedure with no complications. Dandy Ji MD [place] - SURGERY Final Result documented in this encounter Visit Diagnoses Diagnosis Chronic migraine with aura without status migrainosus, not intractable- Primary Chronic migraine without aura without status migrainosus, not intractable Chronic migraine without aura, without mention of intractable migraine without mention of status migrainosus documented in this encounter Administered Medications Inactive Administered Medications - up to 3 most recent administrations Medication Order MAR Action Action Date Dose Rate Site botulinum Toxin Type A (BOTOX) injection 200 Units 200 Units, Injection, ONCE, 1 dose, On Mon12/25/24 at 1130Indications:Chronic migraine with aura without status migrainosus, not intractable,Chronic migraine without aura without status migrainosus, not intractable Given by Other 12/25/2024 11:10 AM CDT 155 Units documented in this encounter Additional Health Concerns Assessment Noted Time PHQ-9 Depression Total Score: 0 04/19/20 24 9:02 AM CDT documented as of this encounter Care Teams Car Pusher Relationship Specialty Start Date End Date Bernabe Shore MD #[address] [address] PCP - General Family Medicine 08/28/15 Ole Ryder MD [address] [place] [address] Obstetrics & Gynecology 03/28/17 Dandy Ji MD [address]2 [place] [address] Consulting Physician Neurology 09/14/21 Jordan Rocha MD [address] [place] [address] Internal Medicine 04/13/24 Joan Pedraza, NEWS REEL CAMERAMAN, CONTRACT SHELTERED WORKSHOP SUPERVISOR [address] [place] [address] Nurse Practitioner Advanced Practice Nurse 08/13/24 documented as of this encounter
--- OUTSIDE RECORDS SUMMARY | 2024-12-26 16:30 | XMS_ITS | Encounter Summary ---
Author Organization [facility] Address [address] [place] [address] Phone Care Team Providers Care Will Call Clerk Name Role Phone Bernabe Shore MD Primary Care Provider Ole Ryder MD Unavailable [phone] Dandy iJ MD Unavailable [phone] Jordan Rocha MD Unavailable [phone] Joan Pedraza APRN, DATA VISUALIZATION DEVELOPER Unavailable [phone] Encounter Details Date Type Department Care Team (Late st Contact Info) Description 12/26/2024 Telephone [facility] - Neurology [facility] #2 [place] [phone] Joan Pedraza, YESI, DATA VISUALIZATION DEVELOPER [address] [place] [address] Social History Tobacco Use Types Packs/Day Years Used Date Smoking Tobacco: Former Cigarettes 1 15 0 09/15/2000 - 09/15/2013 Smokeless Tobacco: Never Alcohol Use Standard Drinks/Week Comments Not Currently 1 (1 standard drink = 0.6 oz pur e alcohol) socially [facility] Utilities Answer Date Recorded In [...] often do you attend chur ch or jainism services? 1 to 4 times per year 10/06/2024 Do you belong to any clubs o r organizations such as methodist groups, unions, fraternal or athletic groups, or [...] Total Score - Questions 1-9 0 03/27 [facility] - Occupational Stress Questionnaire Answer Date Recorded [...] any time in the past 12 m [facility], were you homeless or living in a long-term (including now)? No 10/06/2024 Education Answer Date [...] encounter Miscellaneous Notes * Telephone Encounter - Kalie Pak RN - 12/26/2024 8:35 AM CDT Opened in error. documented in this encounter Plan of Treatment Upcoming Encounters Date Type Department Care Team (Late st Contact Info) Description 02/10/2025 11:00 AM CDT [facility]icine [facility] - [place] [address] [place] [address] Joan Pedraza APRN, DATA VISUALIZATION DEVELOPER [address] [place] [address] 03/28/2025 9:30 AM CDT Procedure [facility] - [place] [address]2 [place] [address] Dandy Ji MD [address]2 [place] [address] 04/07/2025 10:45 AM CDT Office Visit [facility] Family Medicine - [place] [address] [facility] [place] [address] Bernabe Shore MD #[address] [address] documented as of this encounter Goals Goal Patient Goal Type Associated Problems Recent Progress Patient-Stated? Author Chronic Disease Management Chronic Disease Management On track(2023 1:33 PM AUTOMATION APPLICATION ENGINEER) No Candy Souza RN Note: To effectively check in with [facility] Hypertension program via text on Monday at 5:00* pm. Chronic Disease Management Chronic Disease Management On track(2023 1:38 PM AUTOMATION APPLICATION ENGINEER) No Princess Diop, RN Note: [facility] Connect RPM Hypertension Goal Goal: To [...] 3 months documented as of this encounter Visit Diagnoses Diagnosis Chronic migraine with aura without status migrainosus, not intractable- Primary Chronic migraine without aura without status migrainosus, not intractable Chronic migraine without aura, without mention of intractable migraine without mention of status migrainosus documented in this encounter Additional Health Concerns Assessment Noted Time PHQ-9 Depression Total Score: 0 04/19/20 9:02 AM CDT documented as of this encounter Care Teams Will Call Clerk Relationship Specialty Start Date End Date Bernabe Shore MD #2 [facility] [address] [place] [address] PCP - General Family Medicine 08/28/15 Ole Ryder MD [address] [facility] [address] [place] [address] Obstetrics & Gynecology 03/28/17 Dandy Ji MD [address]2 [place] [address] Consulting Physician Neurology 09/14/21 Jordan Rocha MD 1 [place] [address] Internal Medicine 04/13/24 Joan Pedraza APRN, DATA VISUALIZATION DEVELOPER [address] [place] [address] Nurse Practitioner Advanced Practice Nurse 08/13/24 documented as of this encounter
--- OUTSIDE RECORDS SUMMARY | 2024-12-26 17:56 | XMS_ITS | Encounter Summary ---
Author Organization [facility] Address [address] [place] [address] Phone Care Team Providers Care Django Developer Name Role Phone Bernabe Shore MD Primary Care Provider Ole Ryder MD Unavailable [phone] Dandy Ji MD Unavailable Jordan Rocha MD Unavailable [phone] Princess Diop RN Unavailable UnavailJoan Mars APRN, PHYSICIAN UNDERWRITER Unavailable [phone] Reason for Visit * Reason Comments Medication Refill Encounter Details Date Type Department Care Team (Late st Contact Info) Description 03/15/2021 Refill [facility] - Family Medicine [facility] #2 [place] [address] Bernabe Shore MD #[address] [address] Medication Refill Social History Tobacco Use Types [...] [place] 10/26/20 Office Visit Michelle Zurita APN, LUNCHROOM MONITOR Jimlyndsey Edward Showing recent visits within past 182 days and meeting all other requirements Today's Visits Date Type Provider Dept 03/15/21 Office Visit Bernabe Shore MD Os[facility] Edward Showing today's visits and [...] Info) Description 02/10/2025 11:00 AM CDT Telemedicine [facility] Neurology - [place] #2 [place] [address] Joan Pedraza APRN, PHYSICIAN UNDERWRITER #2 [place] [address] 03/28/2025 9:30 AM CDT Procedure Visit [facility] Neurology [facility] #2 [place] [address] Dandy Ji MD #2 [place] [address] 04/07/2025 10:45 AM CDT Office Visit [facility] Family Medicine [facility] #2 [place] [address] Bernabe Shore MD #[address] [address] documented as of this encounter Visit Diagnoses Not on filedocumented in this encounter Additional Health Concerns Infection Onset Date Last Indicated Resolved Time COVID - 19 04/29/2022 04/29/2022 05/09/2022 12:1 6 AM MILL MACHINIST COVID - 19 06/16/2023 06/16/2023 06/26/2023 12:1 6 AM MILL MACHINIST Assessment Noted Time PHQ-9 Depression Total Score: 0 12/23/19 11:31 AM CDT documented as of this encounter Care Teams Django Developer Relationship Specialty Start Date End Date Bernabe Shore MD #2 [facility] [address] [place] [address] PCP - General Family Medicine 08/28/15 Ole Ryder MD [address] [place], [place] [address] Obstetrics & Gynecology 03/28/17 Dandy Ji MD #2 [place] [address] Consulting Physician Neurology 09/14/21 Jordan Rocha MD 1 [place] [address] Internal Medicine 04/13/24 Princess Diop, RN [place] [facility] Shell Molding Roller Blast Operator 05/02/24 05/02/24 Joan Pedraza APRN, PHYSICIAN UNDERWRITER [address] [place] [address] Nurse Practitioner Advanced Practice Nurse 08/13/24 documented as of this encounter
--- OUTSIDE RECORDS SUMMARY | 2024-12-26 17:56 | XMS_ITS | Continuity of Care Document ---
Author Organization [facility] Address [address] [facility] [address] [place] [address] Phone Care Team Providers Care Founder Name Role Phone Todd PT, CMPT, Darron [...] Diagnoses Date Provider Providers Copied on Encounter [facility] [address] [facility], [place], [place], [id number], tel:[phone] [place] No Information 7 John-James es Darron. [address] [facility], [facility] [address], [place], [facility], [place]. tel: [phone] [address] [employer] [address], [place], [place], [address], tel:[phone] Chinle No Information 7 John-James es Darron. [address] [facility], [address], [place], [facility], [place]. tel: [phone] [facility] [address] [place], [place] [address], [place], [place], [id number], tel:[phone] Chinle No Information 7 John-James es Darron. [address] [facility], [address], [place], [facility], . tel: [phone] [facility] [facility] [address], [place], [place], [address], tel:[phone] Chinle No Information Feb-0 7 John-James es Darron. [address] [place] [address], [address], [place], [facility], . tel: [phone] [facility] [address] [facility] [address], [place], [place], [address], tel:[phone] Wagner Other specified disorders of muscleOther specified disorders of urinary systemPain in right hipUrgency of urinationStress incontinence (female) (male)MyalgiaUrge incontinenceIntersti tial cystitis (chronic) without hematuria 7 John-James es Darron. [address] [place] [address], [facility] [address], [place], [facility], . tel: [phone] Family History Family Member Type Diagnosis Age At Onset No Information Payers Payer name Insurance type Covered constitution party ID Authorluza jairojoel(s) [employer] CI [id number] Medicaid OON Write Off CI 00 Social [...]
--- OUTSIDE RECORDS SUMMARY | 2024-12-26 17:56 | XMS_ITS | Encounter Summary ---
Author Organization [facility] Address [address] [place] [address] Care Team Providers Care Funeral Greeter Name Role Phone Unavailable Primary Care Provider Unavailabl e Prior Encounters Date Type Department Care Team Description 07/15/2019 Converted CPS Chart Documents [facility] [address] [place] [phone] <No scans attached> 07/15/2019 Converted 13x Documents [facility] [address] [place] [phone] <No scans attached> Plan of Treatment Not on file Procedures Procedure Name Priority Date/Time Associated Diagnosis Comments CANCELLED APPOINTMENT Routine 11/24/2020 2:00 AM CDT PERIO MAINTENANCE Routine 08/19/2020 2:0 0 AM BLENDING LINE ATTENDANT ORAL HYGIENE INSTRUCTIONS Routine 2020 2:00 AM BLENDING LINE ATTENDANT PERIODIC ORAL EVALUATION - ESTABLISHED PATIENT Routine 08/19/2020 2:00 AM BLENDING LINE ATTENDANT BITEWINGS - FOUR RADIOGRAPHIC IMAGES Routine 08/19/2020 2:00 AM BLENDING LINE ATTENDANT NC X-RAY Routine 08/03/2020 2:00 AM BLENDING LINE ATTENDANT OFFICE VISIT FOR OBSERVATION (DURING REGULARLY SCHEDULED HOURS) - NO OTHER SERVICES PERFORMED Routine 07/10/2020 2:00 AM BLENDING LINE ATTENDANT [address] [place] [address] Routine 06/18/2020 2:0 0 AM BLENDING LINE ATTENDANT CANCELLED APPOINTMENT Routine 05/14/2020 2:00 AM BLENDING LINE ATTENDANT 15 CORE BUILDUP, INCLUDING ANY PINS WHEN [...] PERIO MAINTENANCE Routine 08/08/2019 2:0 0 AM BLENDING LINE ATTENDANT ORAL HYGIENE INSTRUCTIONS Routine 2019 2:00 AM BLENDING LINE ATTENDANT UL PERIODONTAL SCALING AND ROOT PLANING - FOUR OR MORE TEETH PER QUADRANT Routine 05/15/2019 2:00 AM BLENDING LINE ATTENDANT ORAL HYGIENE INSTRUCTIONS Routine 2018 2:00 AM BLENDING LINE ATTENDANT UL HONEY DECON/QD Routine 05/15/2019 2:00 AM BLENDING LINE ATTENDANT UL ANTIBACT IRR/QUAD Routine 05/15/2019 2:00 AM BLENDING LINE ATTENDANT PROPHYLAXIS - ADULT Routine 05/15/2019 2 :00 AM BLENDING LINE ATTENDANT BITEWINGS - FOUR RADIOGRAPHIC IMAGES Routine 05/15/2019 2:00 AM BLENDING LINE ATTENDANT PERIO CONSULT Routine 05/02/2019 2:00 AM BLENDING LINE ATTENDANT Visit Diagnoses Not on file Insurance O
--- OUTSIDE RECORDS SUMMARY | 2024-12-26 17:56 | XMS_ITS | Encounter Summary ---
Author Organization [facility] Address [address] [place] [address] Phone Care Team Providers Care Roll Handler Name Role Phone Bernabe Shore MD Primary Care Provider Ole Ryder MD Unavailable [phone] Dandy Ji MD Unavailable Jordan Rocha MD Unavailable [phone] Princess Diop RN Unavailable UnavailJoan Mars APRN, BEHAVIORAL SPECIALIST Unavailable [phone] Reason for Visit * Reason Comments Medication Refill Encounter Details Date Type Department Care Team (Late st Contact Info) Description 06/16/2022 Refill [facility] - Neurology [facility] #2 [place] [address] Dandy Ji MD #2 [place] [address] Medication Refill Social History Tobacco Use Types [...] Info) Description 02/10/2025 11:00 AM CDT Telemedicine [facility] Neurology [facility] #2 [place] [address] Joan Pedraza APRN, BEHAVIORAL SPECIALIST #2 [place] [address] 03/28/2025 9:30 AM CDT Procedure Visit [facility] #2 [place] [address] Dandy Ji MD #2 [place] [address] 04/07/2025 10:45 AM CDT Office Visit [facility] Family Medicine [facility] #2 [place] [address] Bernabe Shore MD #[address] [address] documented as of this encounter Visit Diagnoses Not on filedocumented in this encounter Additional Health Concerns Infection Onset Date Last Indicated Resolved Time COVID - 19 06/16/2023 06/16/2023 06/26/2023 12:1 6 AM BAR BACK Assessment Noted Time PHQ-9 Depression Total Score: 0 11/16/19 10:24 AM CDT documented as of this encounter Care Teams Roll Handler Relationship Specialty Start Date End Date Bernabe Shore MD #2 [facility] [address] [place] [address] PCP - General Family Medicine 08/28/15 Ole Ryder MD [address] [facility] [address] [place] [address] Obstetrics & Gynecology 03/28/17 Dandy Ji MD #2 [place] [address] Consulting Physician Neurology 09/14/21 Jordan Rocha MD 1 [place] [address] Internal Medicine 04/13/24 Princess Diop RN [place] [facility] Combat Systems Engineer 05/02/24 05/02/24 Joan Pedraza, HUMAN RESOURCE ADVISOR, BEHAVIORAL SPECIALIST #[address] [place] [address] Nurse Practitioner Advanced Practice Nurse 08/13/24 documented as of this encounter
--- OUTSIDE RECORDS SUMMARY | 2024-12-26 17:56 | XMS_ITS | Clinical Summary ---
Author Organization [facility] Address [address] [place] [address] Care Team Providers Care Color Sprayer Name Role Phone Unavailable Primary Care Provider Unavailabl e Social History Tobacco Use Types Packs/Day Years Used Date Smoking Tobacco: Never Assessed Comments Unknown Sex and Gender Information Value Date Recorded Sex Assigned at Not on file Legal Sex Female 1:19 AM PST Gender Identity Not on file Sexual Orientation Not on file Plan of Treatment Not on file Insurance [employer] PPO
--- OUTSIDE RECORDS SUMMARY | 2024-12-26 17:56 | XMS_ITS | Encounter Summary ---
Author Organization [facility] Address [address] [place] [address] Phone Care Team Providers Care Application Support Engineer Name Role Phone Bernabe Shore MD Primary Care Provider Ole Ryder MD Unavailable [phone] Dandy Ji MD Unavailable [phone] Jordan Rocha MD Unavailable [phone] Princess Diop RN Unavailable UnavailJoan Mars APRN, SPONSORSHIP MANAGER Unavailable [phone] Reason for Visit * Reason Comments Medication Refill Encounter Details Date Type Department Care Team (Late st Contact Info) Description 02/24/2021 [facility]ill [facility] #2 [place] [address] Bernabe Shore MD #[address] [address] Medication Refill Social History Tobacco Use Types [...] Info) Description 02/10/2025 11:00 AM CDT Telemedicine [facility] Neurology [facility] #2 [place] [address] Joan Pedraza APRN, SPONSORSHIP MANAGER #2 [place] [address] 03/28/2025 9:30 AM CDT Procedure Visit [facility] Neurology [facility] #2 [facility] [place] [address] Dandy Ji MD #2 [place] [address] 04/07/2025 10:45 AM CDT Office Visit [facility] Family Medicine [facility] #2 [place] [address] Bernabe Shore MD #2 [facility] [place] [address] documented as of this encounter Visit Diagnoses Not on filedocumented in this encounter Additional Health Concerns Infection Onset Date Last Indicated Resolved Time COVID - 19 04/29/2022 04/29/2022 05/09/2022 12:1 6 AM INBOUND CALL CENTER AGENT COVID - 19 06/16/2023 06/16/2023 06/26/2023 12:1 6 AM INBOUND CALL CENTER AGENT Assessment Noted Time PHQ-9 Depression Total Score: 0 12/23/19 21 11:31 AM CDT documented as of this encounter Care Teams Application Support Engineer Relationship Specialty Start Date End Date Bernabe Shore MD #2 [facility] [place] [address] PCP - General Family Medicine 08/28/15 Ole Ryder MD [address] [place] [address] Obstetrics & Gynecology 03/28/17 Dandy Ji MD #2 [place] [address] Consulting Physician Neurology 09/14/21 Jordan Rocha MD 1 [place] [address] Internal Medicine 04/13/24 Princess Diop RN [place] [facility] Secondary Art Teacher 05/02/24 05/02/24 Joan Pedraza APRN, SPONSORSHIP MANAGER #[address] [place] [address] Nurse Practitioner Advanced Practice Nurse 08/13/24 documented as of this encounter
--- OUTSIDE RECORDS SUMMARY | 2024-12-26 17:56 | XMS_ITS | Clinical Summary ---
Author Organization [facility] Address [address], [facility] [address] [place] [address] Phone Care Team Providers Care Flavorer Name Role Phone Bernabe Shore MD Primary Care Provider Ole Ryder MD Unavailable [phone] Dandy Ji MD Unavailable [phone] Jordan Rocha MD Unavailable [phone] Joan Pedraza APRN, PC NETWORK TECHNICIAN Unavailable +- [phone] Allergies Active Allergy Reactions Criticality Noted Date [...] mouth every 8 hours as needed. Active I-Zgqtappojdrb-B lgae-B12-B6 (Metanx) 3-90.314-2-35 MG Capsule Take 1 Capsule by mouth daily. Active Meth-Hyo-M Bl-Na Phos-Ph Otbi (Uribel) 118 MG Capsule Take 1 Capsule [...] daily. 90 Capsule 08/23/19 25 025 [facility]contin [facility] Hospital, Clinic, or Other Facility Administered Medication [...] Type Department Care Team Description 12/26/2024 Telephone [facility] [address] [place] [address] Joan Pedraza APRN, PC NETWORK TECHNICIAN 12/25/2024 10:30 AM CDT Procedure Visit [facility] [address] [place] [address] Dandy Ji MD Chronic migraine with aura without status migrainosus, not intractable (Primary Dx); Chronic migraine without aura without status migrainosus, not intractable Discharge Disposition: Discharged to home or Selfcare 12/23/2024 Travel 12/20/2024 Telephone [facility] Specialty [address] [place] [address] Joan Pedraza APRN, PC NETWORK TECHNICIAN Prior Authorization (BOTOX) 11/11/2024 11:00 AM CDT Telemedicine [facility] [address] [place] [address] Joan Pedraza APRN, PC NETWORK TECHNICIAN Chronic migraine with aura without status migrainosus, not intractable (Primary Dx) 11/11/2024 Travel 11/01/2024 12:30 PM CDT Telemedicine [facility] [address] [place] [address] Sameera Khan APRN, SNOWMOBILE MECHANIC Essential hypertension (Primary Dx) 10/30/2024 Travel 10/22/2024 2:00 PM CDT Telemedicine [facility] [address] [place] [address] Wen Blackmon LCSW Anxiety and depression (Primary Dx) Discharge Disposition: Discharged to home or Selfcare 10/22/2024 Travel 10/10/2024 2:00 PM CDT [facility]medicine [facility] [address] [place] [address] Wen Blackmon LCSW Anxiety and depression (Primary Dx) Discharge Disposition: Discharged to home or Selfcare 10/10/2024 Travel 10/07/2024 9:15 AM CDT Office Visit [facility] [address] [place] [address] Bernabe Shore MD Empty sella syndrome (HCC) (Primary Dx); Chronic migraine without aura with status migrainosus, not intractable; Hypertension, unspecified type; Depression, unspecified depression type Discharge Disposition: Discharged to home or Selfcare 10/06/2024 Travel 10/04/2024 10:30 AM CDT Procedure Visit [facility] [address] [place] [address] Dandy Ji MD Chronic migraine with aura without status migrainosus, not intractable (Primary Dx); Chronic migraine without aura without status migrainosus, not intractable Discharge Disposition: Discharged to home or Selfcare 10/04/2024 Telephone [facility] [address] [place] [address] Joan Pedraza APRN, PC NETWORK TECHNICIAN 10/03/2024 Travel 09/30/2024 Telephone [facility] [address] [place] [address] Christophe, [facility] Chronic Care Appointment 09/26/2024 12:30 PM CDT Telemedicine [facility] [address] [place] [address] Valeriano Shine, YESI, SNOWMOBILE MECHANIC Essential hypertension (Primary Dx) 09/26/2024 Travel from [...] = 0.6 oz pur e alcohol) socially [facility] Utilities Answer Date Recorded In the past 12 months has [employer], gas, oil, or water [employer] threatened to shut off services in your [...] often do you attend chur ch or caodaism services? 1 to 4 times per year 10/06/2024 Do you belong to any clubs o r organizations such as advent groups, unions, fraternal or athletic groups, or [...] Total Score - Questions 1-9 0 03/27 [facility] - Occupational Stress Questionnaire Answer Date [...] time in the past 12 m [facility], were you homeless or living in a long term (including now)? No 10/06/2024 Education Answer Date [...] Description 02/10/2025 11:00 AM CDT Telemedicine [facility] [place] [address] Joan Pedraza APRN, PC NETWORK TECHNICIAN [address] [place] [address] 03/28/2025 9:30 AM CDT Procedure Visit [facility] - Neu[facility] [address] [place] [address] Dandy Ji MD [address] [place] [address] 04/07/2025 10:45 AM CDT Office Visit [facility] - Family Medicine [facility] [address] [place] [address] Bernabe Shore MD [address] [address] Health Maintenance Due Date Last Done Comments [...] Chronic Disease Management On track(2023 1:33 PM NEUROPATHOLOGIST) No Candy Souza RN Note: To effectively check in with [facility] Remote Patient Monitoring Hypertension program via text on Monday at 5:00* pm. Chronic Disease Management Chronic Disease Management On track(2023 1:38 PM NEUROPATHOLOGIST) No Princess Diop RN Note: [facility] [...] 3 months Medical Devices Implanted Type Area Leasing Assistant Device Identifier Shelf Expiration Date Model / Serial / Lot Implant-12/24/2021 Implanted:Qty: 1 on 12/24/2021 IMPLANT Right: Sacrum MEDTRONIC / NEUROLOGIC TECHNOL [id number] A1 LEADS / [id number] H / Description:Interstim 34560- LEADS [id number] Conditional-See manufacturers conditions on Medtronic website for [...] intractable MAMMOGRAM BILATERAL GENERIC 06/24/2023 12:00 AM NEUROPATHOLOGIST HUMAN PAPILLOMA VIRUS (HPV) 03/10/2020 12:00 AM CDT PATHOLOGY CYTOLOGY ACTIVE DIRECTORY ARCHITECT 0 12:00 AM CDT from Last 3 [...] procedure with no complications. Dandy Ji MD [place] - SURGERY Final Result * OPTOMETRY CONSULT (12/04/2024 12:00 AM CDT) 12/04/2024 us Provider Scan GENERIC SCAN ORDERS CONSULT Carola l Result Performing Organization Address City/[facility]/ZIP Co de Phone Number SCAN * OPHTHALMOLOGY CONSULT (11/28/2024 12:00 AM CDT) 11/28/2024 Provider Scan GENERIC SCAN ORDERS CONSULT Carola l Result Performing Organization Address [facility] Co de Phone Number SCAN * CHEMODENERV [...] procedure with no complications. Dandy Ji MD [place] - SURGERY Final Result * MAMMOGRAM BILATERAL MISCELLANEOUS (06/24/2023 12:00 AM NEUROPATHOLOGIST) 06/24/2023 Bernabe Shore MD IMG MAMMO ORDERABLES Final Re sult Performing Organization Address [facility] Co de Phone Number SCAN * PATHOLOGY CYTOLOGY ACTIVE DIRECTORY ARCHITECT (03/10/2020 12:00 AM CDT) 03/10/2020 us Provider Scan PATHOLOGY/CYTOLOGY ORDERABLES Fi nal Result [facility] * HUMAN PAPILLOMA VIRUS (HPV) (03/10/2020 12:00 AM CDT) 03/10/2020 us Provider Scan LAB SEND OUTS Final Result [facility] from Last 3 Months or Most Recently Relevant to Health Maintenance Insurance MEDICAID [facility] Care Teams Flavorer Relationship Specialty Start Date End Date Bernabe Shore MD [address] [place] [address] PCP - General Family Medicine 08/28/15 Ole Ryder MD [address] [place] [address] Obstetrics & Gynecology 03/28/17 Dandy Ji MD [address] [place] [address] Consulting Physician Neurology 09/14/21 Jordan Rocha MD [address] [place] [address] Internal Medicine 04/13/24 Joan Pedraza, STRAIGHTENING ROLL OPERATOR, PC NETWORK TECHNICIAN [address] [place] [address] Nurse Practitioner Advanced Practice Nurse 08/13/24
--- OUTSIDE RECORDS SUMMARY | 2024-12-26 17:56 | XMS_ITS ---
Author Organization [facility] Address [address] [facility], [address] [address] Phone Care Team Providers Care A&P Technician Name Role Phone Bernabe Shore MD Primary Care Provider [phone] Ole Ryder MD Unavailable [phone] Dandy Ji MD Unavailable [phone] Jordan Rocha MD Unavailable Joan Pedraza APRN, INSIDE BARREL POLISHER Unavailable [phone] [facility] Chronic Condition Monitoring Status:Enrolled (Active) Start date:05/02/2024 Enrollment date:05/02/2024 Related social drivers of health:Intimate Partner Violence, Tobacco Use, Financial Resource Strain, Stress, Physical Activity, Transportation Needs Continued Care and Services Coordination
--- OUTSIDE RECORDS SUMMARY | 2024-12-26 17:56 | XMS_ITS | Encounter Summary ---
Author Organization [facility] Healthcare Address [address] [place] [address] Care Team Providers Care Cash Register Servicer Name Role Phone Bernabe Shore MD Primary Care Provider [phone] Beranbe Shore MD Unavailable [phone] Ole Hodge MD Unavailable [phone] Nathalia Ba MD Unavailable [phone] Dandy Ji MD Unavailable [phone] Milagro Beauchamp MD Unavailable [phone] Familia Painting MD Unavailable [phone] Emi [place] MD Unavailable [phone] Rocio Mata DPT Unavailable [phone] Reason for Visit * Reason Onset Date Comments PMC Preprocedure 11/29/2024 Encounter Details Date Type Department Care Team (Late st Contact Info) Description 11/29/2024 Telephone [facility] [place] [facility] [address] [facility] Advanced Medicine [address] [place] [address] Alie Rosas MD [address] [place] [address] PMC Preprocedure Social History Tobacco Use Types [...] on file Legal Sex Female 3:22 AM INTERNET SPECIALIST Gender Identity Female 11/21/2020 10:51 AM CDT Sexual Orientation Bisexual 08/16/2024 10 :11 AM INTERNET SPECIALIST 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 Not on file Not on file documented as of this encounter Plan of Treatment Upcoming Encounters Date Type Department Care Team (Late st Contact Info) Description 02/28/2025 11:30 AM CDT Hospital Encounter [facility] Operating Room [address] [place] [address] Kacey Jean MD [address] [facility] [phone] [place] [address] 02/28/2025 11:30 AM CDT - 02/28/2025 3:25 PM CDT Surgery [facility] Operating Room [address] [place] [address] Kacey Jean MD [address] [facility] [phone] [place] [address] CYSTOSCOPY Scheduled Procedures Name Priority Associated Diagnoses [...] on filedocumented in this encounter Care Teams Cash Register Servicer Relationship Specialty Start Date End Date Bernabe Shore MD 2 [facility] [address] [place] [address] PCP - General Family Medicine 07/24/23 Bernabe Shore MD [address] [address] 07/24/23 Ole Hodge MD [address] [place] [address] 03/15/18 Nathalia Ba MD [address] [place] [address] Referring Physician Ophthalmology 10/25/22 Dandy Ji MD [address] [place] [phone] Neurologist Neurology 10/25/22 Milagro Beauchamp MD [address] [place] [phone] Neurologist Neurology 10/25/22 Familia Painting MD [address] [place] [address] Consulting Physician Rheumatology 10/25/22 Emi [place] MD [address] [place] [address] Surgeon Orthopedic Surgery 11/04/22 Rocio Mata DPT [address] [place] [address] Physical Therapist Physical Therapy 10/17/24 documented as of this encounter
--- OUTSIDE RECORDS SUMMARY | 2024-12-26 17:56 | XMS_ITS | Clinical Summary ---
Author Organization [facility] Address [address] [place] [address] Care Team Providers Care Telephone Worker Name Role Phone Bernabe Shore MD Primary Care Provider [phone] Bernabe Shore MD Unavailable [phone] Ole Hodge MD Unavailable [phone] Nathalia Ba MD Unavailable [phone] Dandy Ji MD Unavailable [phone] Milagro Beauchamp MD Unavailable [phone] Familia Painting MD Unavailable [phone] Emi [place] MD Unavailable [phone] Rocio Mata DPT Unavailable [phone] Allergies Active Allergy Reactions Criticality Noted Date [...] % ophthalmic solution 06/09/20 21 Active levomefolate-B6- lfA94-vhoup oil (METANX) 3 mg-35 mg-2 mg -90.314 [...] Team Description 12/17/2024 3:45 PM CDT Therapy [facility] Physical Therapy [facility] [address] [place] [address] Rocio Mata DPT Neck pain (Primary Dx) 12/16/2024 1:58 PM CDT - 12/16/2024 11:59 PM CDT Hospital Encounter [facility] [place] [address] [facility] [address] [place] [address] Alie Rosas MD Sacroiliitis Discharge Disposition: Discharge to home or self care 12/12/2024 Telephone [facility] at the [facility] Advanced Medicine [address] [facility] [address] [place] [address] Alie Rosas MD [facility] Preprocedure 12/11/2024 2:30 PM CDT Office Visit [facility] Obstetrics and Gynecology [address] [place] [address] 7th Floor [address] [place] [address] 7, Ob [facility] Provider 2 [facility] HPV vaccine counseling (Primary Dx); Low libido; Perimenopausal symptoms 12/04/2024 9:30 AM CDT Therapy [facility] Physical Therapy [facility] [place] [address] [place] [address] Kalie Hicks PTA Neck pain (Primary Dx) 12/03/2024 11:00 AM CDT Office Visit [facility] Minimally Invasive Surgery [address] [facility] 7th Floor [address] [place] [address] Kacey Jean MD Chronic pelvic pain in female (Primary Dx); Endometriosis; Family history of breast cancer 12/03/2024 Orders Only [facility] Obstetrics and Gynecology [address] [facility] 7th Floor [address] [place] [address] Rich Jeter RN Premature menopause (Primary Dx) 12/03/2024 Orders Only [facility] [address] [facility] [address] [place] [address] Alie Rosas MD Cervical pain (neck) (Primary Dx) 11/29/2024 3:15 PM CDT Office Visit [facility] Obstetrics and Gynecology [address] [facility] 1st Floor [address] [place] [address] Farnaz Cheung MD Premature menopause (Primary Dx); Perimenopausal symptoms 11/29/2024 12:30 PM CDT Therapy [facility] Physical Therapy [address] [place] [address] [address] [place] [address] Kalie Hicks PTA Neck pain (Primary Dx) 11/29/2024 Telephone [facility] [address] [facility] [address] [place] [address] Alie Rosas MD PMC Preprocedure 11/26/2024 11:00 AM CDT Therapy [facility] Physical Therapy [address] [facility] 1st Floor [address] [place] [address] Monse Jackson DPT Other chronic pain (Primary Dx); Endometriosis; Urinary incontinence, unspecified type 11/14/2024 10:45 AM CDT Therapy [facility] Physical Therapy [address] [facility] [address] [place] [address] Kalie Hicks PTA Neck pain (Primary Dx) 11/13/2024 10:15 AM CDT Office Visit [facility] Pain Management [address] [facility] 14th [place] [address] [place] [address] Sameera Dangelo, PhD Trauma and stressor-related disorder (Primary Dx); Other chronic pain 11/07/2024 3:00 PM CDT Therapy [facility] Physical Therapy [facility] [address] [place] [address] Rocio Mata, DPJackson Neck pain (Primary Dx) 11/07/2024 Orders Only [facility] Advanced Medicine [address] [place] [address] Alie Rosas MD Sacroiliitis (Primary Dx) 10/31/2024 11:00 AM CDT Therapy [facility] Physical Therapy [address] [place] [address] [address] [place] [address] Kalie Hicks PTA Neck pain (Primary Dx) 10/29/2024 Plan of Care Documentation [facility] Physical Therapy [address] [place] [address] [place] [address] 10/28/2024 10:00 AM CDT Therapy [facility] Physical Therapy [address] [place] [address] [address] [place] [address] Monse Jackson, DPJackson Other chronic pain (Primary Dx); Endometriosis; Urinary incontinence, unspecified type 10/25/2024 9:28 AM CDT - 10/25/2024 11:59 PM CDT Hospital Encounter [facility] at the [facility] Advanced Medicine [address] [place] [address] Advanced [facility] [address] [place] [address] Alie Rosas MD Neuralgia of both pudendal nerves (Primary Dx); Pudendal neuralgia Discharge Disposition: Discharge to home or self care 10/23/2024 1:30 PM CDT Therapy [facility] Physical Therapy [address] [place] [address] [address] [place] [address] Kalie Hicks PTA Neck pain (Primary Dx) 10/23/2024 Telephone [facility] [address] [place] [address] Advanced Medicine [address] [place] [address] Alie Rosas MD PMC Preprocedure 10/22/2024 Telephone [facility] [address] [place] [address] Advanced Medicine [address] [place] [address] Alie Rosas MD PMC Preprocedure 10/17/2024 10:30 AM CDT Therapy [facility] Physical Therapy [address] [place] [address] Rocio Mata DPT Neck pain (Primary Dx) 10/17/2024 Plan of Care Documentation [facility] Physical Therapy [address] [place] [address] 10/11/2024 Orders Only [facility] at [facility] Advanced Medicine [address] [facility] Advanced [facility] [address] [place] [address] Alie Rosas MD Pudendal neuralgia (Primary Dx) 10/09/2024 1:45 PM CDT Therapy [facility] Physical Therapy [address] [place] [address] Kalie Hicks PTA Neck pain (Primary Dx) [...] on file Legal Sex Female 3:22 AM SORTING COWS WORKER Gender Identity Female 11/21/2020 10:51 AM CDT Sexual Orientation Bisexual 08/16/2024 10 :11 AM SORTING COWS WORKER 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 Not on file [...] Description 02/28/2025 11:30 AM CDT Hospital Encounter [facility] Operating Room [address] [place] [address] Kacey Jean MD [address] [facility] [phone] [place] [address] 02/28/2025 11:30 AM CDT - 02/28/2025 3:25 PM CDT Surgery [facility] Operating Room [address] [place] [address] Kacey Jean MD [address] [facility] [phone] [place] [address] CYSTOSCOPY Scheduled Procedures Name Priority Associated Diagnoses [...] on stairs Contact your local community or federal medical center, [place] for information on exercise, fall prevention programs, or options for improving home safety. Autogenerated Goal Care Plan Autogenerated Problem No Jose Pompa RN Medical Devices Implanted Type Area Carpenter Refrigerator Device Identifier Shelf Expiration Date Model / Serial / Lot Neurostimulator- Implanted: 022 by Unknown, Notinfile (Quantity not on file) Neurostimulator Pelvis Medtronic Neuro INTERSTIM [id number] / / Neurostimulator Lead-12/28/2021 Implanted: 022 by Unknown, Notinfile (Quantity not on file) Neurostimulator Pelvis Medtronic Neuro [id number] / / Explanted Type Area Carpenter Refrigerator Device Identifier Shelf Expiration Date Model / Serial / Lot Spr Therapeutics Kit Sprint Percutaneous Electrical Nerve Stimulation 9244-6001b - [id number] Implanted:Qty: 1 on 04/26/2023 by Alie Rosas MD at [facility] 4 Explanted: 023 by Alie Rosas MD (Quantity not on file) Lead [employer] 06/07/2024 9244-600 1B / / Spr Therapeutics System Nerve Stimulator Peripheral Single Lead Sprint Endura 4024-8823 - [id number] - [id number] Implanted:Qty: 1 on 04/14/2023 by Alie Rosas MD at [facility] 4 Explanted: 023 by Alie Rosas MD (Quantity not on file) [employer]ER[employer] 03/02/2024 9244-600 1 / [id number] / [id number] Procedures Procedure Name Priority Date/Time Associated Diagnosis Comments PAIN MGMT IMAGING SI JOINT BILATERAL ARTHROGRPHY Schedule Routine, Read Routine (OP Routine) 12/16/2024 3:57 PM CDT Sacroiliitis PAIN MGMT IMAGING PUDENDAL NERVE BLOCK Schedule Routine, Read Routine (OP Routine) 10/25/2024 10:48 AM CDT Pudendal neuralgia from Last 3 Months Results * Imaging SI Joint Injection Bilateral ([id number]) (12/16/2024 3:57 PM CDT) Narrative [facility]_P[facility] - 12/16/2024 3:57 PM CDT The images from this study are not interpreted by Radiology. Please refer to the physician's procedure / OR operative note. Alie Rosas MD IMG PAIN MGMT PROCEDURES Fi nal Result Performing Organization Address [facility] de Phone Number [facility] * Imaging Pudendal Nerve Block ([id number]) (10/25/2024 10:48 AM CDT) Narrative [facility] - 10/25/2024 10:48 AM CDT The images from this study are not interpreted by Radiology. Please refer to the physician's procedure / OR operative note. Alie Rosas MD [facility] PAIN MGMT PROCEDURES Fi nal Result Performing Organization Address [facility] Phone Number [facility]_P[facility] from Last 3 Months Additional Health Concerns Active Problems Noted Date Diagnosed Date Autogenerated Problem 12/23/2024 Insurance IDPA [facility] IDPA [facility] [id number] [facility] [id number] IDPA Advance Directives For more information, please contact: [phone] * Full Code (Latest Code Status on File) Date Activated Date Inactivated Comments 11/04/2022 9:54 AM 11/04/2022 2:51 PM Care Teams Telephone Worker Relationship Specialty Start Date End Date Bernabe Shore MD 2 [facility] [address] [place] [address] PCP - General Family Medicine 07/24/23 Bernabe Shore MD 2 [facility] [address] [place] [address] 07/24/23 Ole Hodge MD [address] [place] [address] 03/15/18 Nathalia Ba MD [address] [place] [address] Referring Physician Ophthalmology 10/25/22 Dandy Ji MD 2 [place] [address] Neurologist Neurology 10/25/22 Milagro Beauchamp MD 2 [place] [address] Neurologist Neurology 10/25/22 Familia Painting MD 2 [place] [address] Consulting Physician Rheumatology 10/25/22 Emi [place] MD 2 [place] [address] Surgeon Orthopedic Surgery 11/04/22 Rocio Mata DPT [address] [facility] [address] [place] [address] Physical Therapist Physical Therapy 10/17/24
--- OUTSIDE RECORDS SUMMARY | 2024-12-26 17:56 | XMS_ITS | Referral Summary ---
Author Organization [facility] Address [address] [place] [address] Care Team Providers Care Sap Gatherer Name Role Phone Bernabe Shore MD Primary Care Provider [phone] Bernabe Shore MD Unavailable [phone] Ole Hodge MD Unavailable [phone] Nathalia Ba MD Unavailable Dandy Ji MD Unavailable Milagro Beauchamp MD Unavailable Familia Painting MD Unavailable [phone] Emi Anderson MD Unavailable [phone] Rocio Mata DPT Unavailable [phone] Encounters Date Type Department Care Team Description 12/17/2024 3:45 PM CDT Therapy [facility] [address] [place] [address] Rocio Mata DPT Neck pain (Primary Dx) 12/16/2024 1:58 PM CDT - 12/16/2024 11:59 PM CDT Hospital Encounter [facility] [place] [facility] [address] [facility] Advanced [facility] [address] [place] [address] Alie Rosas MD Sacroiliitis Discharge Disposition: Discharge to home or self care 12/12/2024 Telephone [facility] [address] [facility] Advanced Medicine [address] [place] [address] Alie Rosas MD PMC Preprocedure 12/11/2024 2:30 PM CDT Office Visit [facility] [address] [facility] 7th [address] [place] [address] 7, Ob [facility] Provider 2 [facility] HPV vaccine counseling (Primary Dx); Low libido; Perimenopausal symptoms 12/04/2024 9:30 AM CDT Therapy [facility] [address] [facility] [address] [place] [address] Kalie Hicks PTA Neck pain (Primary Dx) 12/03/2024 Orders Only [facility] [address] [facility] 7[address] [place] [address] Rich Jeter RN Premature menopause (Primary Dx) 12/03/2024 Orders Only [facility] [address] [facility] Advanced Medicine [address] [place] [address] Alie Rosas MD Cervical pain (neck) (Primary Dx) 12/03/2024 11:00 AM CDT Office Visit [facility] Minimally Invasive Surgery [address] [facility] [facility] 7[address] [place] [address] Kacey Jean MD Chronic pelvic pain in female (Primary Dx); Endometriosis; Family history of breast cancer 11/29/2024 Telephone [facility] [address] [facility] Advanced Medicine [address] [place] [address] Alie Rosas MD PMC Preprocedure 11/29/2024 12:30 PM CDT Therapy [facility] [address] [facility] [address] [place] [phone] Kalie Hicks PTA Neck pain (Primary Dx) 11/29/2024 3:15 PM CDT Office Visit [facility] [address] [facility] 1st Floor [address] [place] [address] Farnaz Cheung MD Premature menopause (Primary Dx); Perimenopausal symptoms 11/26/2024 11:00 AM CDT Therapy [facility] [address] [facility] [place] [address] Monse Jackson DPT Other chronic pain (Primary Dx); Endometriosis; Urinary incontinence, unspecified type 11/14/2024 10:45 AM CDT Therapy [facility] [address] [place] [address] [address] [place] [address] Kalie Hicks PTA Neck pain (Primary Dx) 11/13/2024 10:15 AM CDT Office Visit [facility] 14th [place] [address] [place] [address] Sameera Dangelo, PhD Trauma and stressor-related disorder (Primary Dx); Other chronic pain 11/07/2024 Orders Only [facility] at the [facility] Advanced [facility] [address] [place] [address] Alie Rosas MD Sacroiliitis (Primary Dx) 11/07/2024 3:00 PM CDT Therapy [facility] [address] [place] [address] 120 [place] [address] Rocio Mata DPT Neck pain (Primary Dx) 10/31/2024 11:00 AM CDT Therapy [facility] [address] [place] [address] [address] [place] [address] Kalie Hicks PTA Neck pain (Primary Dx) 10/29/2024 Plan of Care Documentation [facility] [address] [place] [address] [place] [address] 10/28/2024 10:00 AM CDT Therapy [facility] [address] [place] [address] [place] [address] Monse Jackson DPT Other chronic pain (Primary Dx); Endometriosis; Urinary incontinence, unspecified type 10/25/2024 9:28 AM CDT - 10/25/2024 11:59 PM CDT Hospital Encounter [facility] at the [facility] Advanced Medicine [address] [place] [address] Advanced Medicine [address] [place] [address] Alie Rosas MD Neuralgia of both pudendal nerves (Primary Dx); Pudendal neuralgia Discharge Disposition: Discharge to home or self care 10/23/2024 Telephone [facility] at the [address] [place] [address] Alie Rosas MD PMC Preprocedure 10/23/2024 1:30 PM CDT Therapy [facility] [address] [place] [address] Kalie Hicks PTA Neck pain (Primary Dx) 10/22/2024 Telephone [facility] at the [address] [place] [address] Alie Rosas MD PMC Preprocedure 10/17/2024 Plan of Care Documentation [facility] [address] [place] [address] 10/17/2024 10:30 AM CDT Therapy [facility] [address] [place] [phone] Rocio Mata, DPJackson Neck pain (Primary Dx) 10/11/2024 Orders Only [facility] at the [address] [place] [address] Alie Rosas MD Pudendal neuralgia (Primary Dx) 10/09/2024 1:45 PM CDT Therapy [facility] [address] [place] [address] Kalie Hicks PTA Neck pain (Primary Dx) [...] by mouth daily 07/05/19 22 Active dg kmsi-ncksn-vdv 118-10-40.8-36 mg capsule Take 1 capsule by mouth 3 (three) times a day 10/14/19 22 Active EPINEPHrine 0.3 mg/0.3 mL auto-injection syringe as needed for anaphylaxis Active olopatadine 0.6 % spray,non-aeroso l 05/29/20 22 Active montelukast (SINGULAIR) 10 mg tablet 06/09/20 21 Active olopatadine (PATADAY) 0.2 % ophthalmic solution 06/09/20 21 Active levomefolate-B6- xcO42-bywnp oil (METANX) 3 mg-35 mg-2 mg -90.314 [...] 2 mL 1 12/11/19 25 025 Discontin ued([facility]) Hospital, Clinic, or Other Facility Administered [...] on file Legal Sex Female 3:22 AM DEMAND PLANNING MANAGER Gender Identity Female 11/21/2020 10:51 AM CDT Sexual Orientation Bisexual 08/16/2024 10 :11 AM DEMAND PLANNING MANAGER 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 Not on file [...] Description 02/28/2025 11:30 AM CDT Hospital Encounter [facility] [address] [place] [address] Kacey Jean MD [address] [facility] [phone] [place] [phone] 02/28/2025 11:30 AM CDT - 02/28/2025 3:25 PM CDT Surgery [facility] [address] [place] [address] Kacey Jean MD [address] [facility] [phone] [place] [address] CYSTOSCOPY Scheduled Procedures Name Priority Associated Diagnoses [...] Pompa RN Medical Devices Implanted Type Area Golf Course Designer Device Identifier Shelf Expiration Date Model / Serial / Lot Neurostimulator- Implanted: 022 by Unknown, Notinfile (Quantity not on file) Neurostimulator Pelvis Medtronic Neuro INTERSTIM [id number] / / Neurostimulator Lead-12/28/2021 Implanted: 022 by Unknown, Notinfile (Quantity not on file) Neurostimulator Pelvis Medtronic Neuro [id number] / / Explanted Type Area Golf Course Designer Device Identifier Shelf Expiration Date Model / Serial / Lot Spr Therapeutics Kit Sprint Percutaneous Electrical Nerve Stimulation [id number] - [id number] Implanted:Qty: 1 on 04/26/2023 by Alie Rosas MD at [facility] 4 Explanted: 023 by Alie Rosas MD (Quantity not on file) Lead [employer] 06/07/2024 9244-600 1B / / Spr Therapeutics System Nerve Stimulator Peripheral Single Lead Sprint Endura [id number] - [id number] - [id number] Implanted:Qty: 1 on 04/14/2023 by Alie Rosas MD at [facility] 4 Explanted: 023 by Alie Rosas MD (Quantity not on file) [employer] 03/02/2024 9244-600 1 / [id number] / [id number] Procedures Procedure Name Priority Date/Time Associated Diagnosis Comments PAIN MGMT IMAGING SI JOINT BILATERAL ARTHROGRPHY Schedule Routine, Read Routine (OP Routine) 12/16/2024 3:57 PM CDT Sacroiliitis PAIN MGMT IMAGING PUDENDAL NERVE BLOCK Schedule Routine, Read Routine (OP Routine) 10/25/2024 10:48 AM CDT Pudendal neuralgia from Last 3 Months Results * Imaging SI Joint Injection Bilateral (32632) (12/16/2024 3:57 PM CDT) Narrative [facility] - 12/16/2024 3:57 PM CDT The images from this study are not interpreted by Radiology. Please refer to the physician's procedure / OR operative note. us Alie Rosas MD IMG PAIN MGMT PROCEDURES Fi nal Result [facility] * Imaging Pudendal Nerve Block (65780) (10/25/2024 10:48 AM CDT) Narrative [facility] - 10/25/2024 10:48 AM CDT The images from this study are not interpreted by Radiology. Please refer to the physician's procedure / OR operative note. us Alie Rosas MD IMG PAIN MGMT PROCEDURES Fi nal Result [facility] from Last 3 Months Additional Health Concerns Active Problems Noted Date Diagnosed Date Autogenerated Problem 12/23/2024 Insurance IDPA [facility] IDPA [facility] [id number] [facility] [id number] IDPA Advance Directives For more information, please contact: [phone] * Full Code (Latest Code Status on File) Date Activated Date Inactivated Comments 11/04/2022 9:54 AM 11/04/2022 2:51 PM Care Teams Sap Gatherer Relationship Specialty Start Date End Date Bernabe Shore MD [address] [address] PCP - General Family Medicine 07/24/23 Bernabe Shore MD [address] [address] 07/24/23 Ole Hodge MD [address] [place] [address] 03/15/18 Nathalia Ba MD [address] [place] [address] Referring Physician Ophthalmology 10/25/22 Dandy Ji MD 2 [place] [address] Neurologist Neurology 10/25/22 Milagro Beauchamp MD 2 [place] [address] Neurologist Neurology 10/25/22 Familia Painting MD 2 [place] [address] Consulting Physician Rheumatology 10/25/22 Emi Anderson MD 2 [place] [address] Surgeon Orthopedic Surgery 11/04/22 Rocio Mata DPT [address] [facility] [address] [place] [address] Physical Therapist Physical Therapy 10/17/24
--- OUTSIDE RECORDS SUMMARY | 2024-12-26 17:56 | XMS_ITS | Encounter Summary ---
Author Organization [facility] Address [address] [place] [address] Phone Care Team Providers Care Protective Officer Name Role Phone Bernabe Shore MD Primary Care Provider [phone] Ole Ryder MD Unavailable [phone] Dandy Ji MD Unavailable Jordan Rocha MD Unavailable [phone] Princess Diop RN Unavailable UnavailJoan Mars APRN, CONCESSIONS MANAGER Unavailable [phone] Reason for Visit * Reason Comments Medication Refill Encounter Details Date Type Department Care Team (Late st Contact Info) Description 09/17/2023 Refill [facility] - Family Medicine [facility] #2 [place] [address] Bernabe Shore MD #[address] [address] Medication Refill Social History Tobacco Use Types [...] PM CDT Medication(s) refilled and signed per [facility] Chronic Medication Refill Standing Order for Pediatricand [...] 04/03/23 Office Visit Michelle Zurita APRN, ELOY [facility] [place] 12/01/22 Office Visit [facility] Showing recent visits within past 365 days [...] Info) Description 02/10/2025 11:00 AM CDT Telemedicine [facility] Neurology [facility] #2 [facility] [place] [address] Joan Pedraza, PANEL WIRER, CONCESSIONS MANAGER #2 [place] [address] 03/28/2025 9:30 AM CDT Procedure Visit [facility] Neurology [facility] #2 [facility] [place] [address] Dandy Ji MD #2 [place] [address] 04/07/2025 10:45 AM CDT Office Visit [facility] Family Medicine [facility] [address]2 [place] [address] Bernabe Shore MD #[address] [place] [address] documented as of this encounter Goals Goal Patient Goal Type Associated Problems Recent Progress Patient-Stated? Author Chronic Disease Management Chronic Disease Management On track(2023 1:33 PM CEMENT HANDLER) Candy Vargas RN Note: To effectively check in with [facility]'s Remote Patient Monitoring Hypertension program via text on Monday at 5:00* pm. documented as of this encounter Visit Diagnoses Not on filedocumented in this encounter Additional Health Concerns Assessment Noted Time PHQ-9 Depression Total Score: 0 11/16/19 10:24 AM CDT documented as of this encounter Care Teams Protective Officer Relationship Specialty Start Date End Date Bernabe Shore MD #2 [facility] [address] [place] [address] PCP - General Family Medicine 08/28/15 Ole Ryder MD [address] [place] [address] Obstetrics & Gynecology 03/28/17 Dandy Ji MD #2 [place] [address] Consulting Physician Neurology 09/14/21 Jordan Rocha MD 1 [place] [address] Internal Medicine 04/13/24 Princess Diop RN [place] [facility] Glass Embosser 05/02/24 05/02/24 Joan Pedraza APRN, CONCESSIONS MANAGER [address] [place] [address] Nurse Practitioner Advanced Practice Nurse 08/13/24 documented as of this encounter
--- OUTSIDE RECORDS SUMMARY | 2024-12-26 17:56 | XMS_ITS | Encounter Summary ---
Author Organization [facility] Address [address] [place] [address] Phone Care Team Providers Care Towel Weaver Name Role Phone Bernabe Shore MD Primary Care Provider Ole Ryder MD Unavailable [phone] Dandy Ji MD Unavailable Jordan Rocha MD Unavailable [phone] Princess Diop RN Unavailable UnavailJoan Mars APRN, WEED THINNER Unavailable [phone] Reason for Visit * Reason Comments Medication Refill Encounter Details Date Type Department Care Team (Late st Contact Info) Description 10/26/2023 Refill [facility] #2 [place] [address] Bernabe Shore MD #[address] [address] Medication Refill Social History Tobacco Use Types [...] AM CDT Medication(s) refilled and signed per [facility] Chronic Medication Refill Standing Order [...] Dept 04/03/23 Office Visit Michelle Zurita APRN, MILK RECEIVER TANK TRUCK [facility] [place] 12/01/22 Office Visit Bernabe Shore MD [facility] Showing recent visits within past 365 days and meeting all other requirements Future Appointments No visits were found meeting these conditions. Showing future appointments within next 90 days and meeting all other requirements documented in this encounter Plan of Treatment Upcoming Encounters Date Type Department Care Team (Late st Contact Info) Description 02/10/2025 11:00 AM CDT Telemedicine [facility] - Neurology - [place] [address] [place] [address] Joan Pedraza APRN, WEED THINNER [address] [place] [address] 03/28/2025 9:30 AM CDT Procedure Visit [facility] - Neurology [facility] #2 [place] [address] Dandy Ji MD #2 [place] [address] 04/07/2025 10:45 AM CDT Office Visit [facility] Medical Group - Family Medicine [facility] #2 [place] [address] Bernabe Shore MD #[address] [address] documented as of this encounter Goals Goal Patient Goal Type Associated Problems Recent Progress Patient-Stated? Author Chronic Disease Management Chronic Disease Management On track(2023 1:33 PM SLUDGE FILTRATION OPERATOR) Candy Vargas, RN Note: To effectively check in with [facility]'s Remote Patient Monitoring Hypertension program via text on Monday at 5:00* pm. documented as of this encounter Visit Diagnoses Not on filedocumented in this encounter Additional Health Concerns Assessment Noted Time PHQ-9 Depression Total Score: 0 11/16/19 22 10:24 AM CDT documented as of this encounter Care Teams Towel Weaver Relationship Specialty Start Date End Date Bernabe Shore MD #[address] [address] PCP - General Family Medicine 08/28/15 Ole Ryder MD [address] [facility] [address] [facility] [address] [place] [address] Obstetrics & Gynecology 03/28/17 Dandy Ji MD #2 [place] [address] Consulting Physician Neurology 09/14/21 Jordan Rocha MD 1 [place] [address] Internal Medicine 04/13/24 Princess Diop RN [place] [facility] Registered Medical Transcriptionist 05/02/24 05/02/24 Joan Pedraza APRN, WEED THINNER [address] [place] [address] Nurse Practitioner Advanced Practice Nurse 08/13/24 documented as of this encounter
--- OUTSIDE RECORDS SUMMARY | 2024-12-26 17:56 | XMS_ITS | Encounter Summary ---
Author Organization [facility] Address [address] [place] [address] Phone Care Team Providers Care Program Support Assistant Name Role Phone Bernabe Shore MD Primary Care Provider Ole Ryder MD Unavailable [phone] Dandy Ji MD Unavailable Jordan Rocha MD Unavailable [phone] Princess Diop RN Unavailable UnavailJoan Mars APRN, WARP TYING MACHINE KNOTTER Unavailable [phone] Reason for Visit * Reason Comments Medication Refill Encounter Details Date Type Department Care Team (Late st Contact Info) Description 12/14/2023 Refill [facility] #2 [place] [address] Bernabe Shore MD #[address] [address] Medication Refill Social History Tobacco Use Types [...] Dept 04/03/23 Office Visit Michelle Zurita APRN, GRAVITY MANAGER [facility] Showing recent visits within past 365 days and meeting all other requirements Future Appointments No visits were found meeting these conditions. Showing future appointments within next 90 days and meeting all other requirements documented in this encounter Plan of Treatment Upcoming Encounters Date Type Department Care Team (Late st Contact Info) Description 02/10/2025 11:00 AM CDT Telemedicine [facility] Neurology [facility] #2 [place] [address] Joan Pedraza APRN, WARP TYING MACHINE KNOTTER #2 [place] [address] 03/28/2025 9:30 AM CDT Procedure Visit [facility] #2 [place] [address] Dandy Ji MD #2 [place] [address] 04/07/2025 10:45 AM CDT Office Visit [facility] #2 [place] [address] Bernabe Shore MD #[address] [address] documented as of this encounter Goals Goal Patient Goal Type Associated Problems Recent Progress Patient-Stated? Author Chronic Disease Management Chronic Disease Management On track(2023 1:33 PM WINDER OPERATOR) Candy Vargas, RN Note: To effectively check in with [facility]'s Remote Patient Monitoring Hypertension program via text on Monday at 5:00* pm. documented as of this encounter Visit Diagnoses Not on filedocumented in this encounter Additional Health Concerns Assessment Noted Time PHQ-9 Depression Total Score: 0 11/16/19 22 10:24 AM CDT documented as of this encounter Care Teams Program Support Assistant Relationship Specialty Start Date End Date Bernabe Shore MD #[address] [address] PCP - General Family Medicine 08/28/15 Ole Ryder MD [address] [place] [address] Obstetrics & Gynecology 03/28/17 Dandy Ji MD #2 [place] [address] Consulting Physician Neurology 09/14/21 Jordan Rocha MD 1 [place] [address] Internal Medicine 04/13/24 Princess Diop RN [place] [facility] Acute Care Registered Nurse 05/02/24 05/02/24 Joan Pedraza APRN, WARP TYING MACHINE KNOTTER [address] [place] [address] Nurse Practitioner Advanced Practice Nurse 08/13/24 documented as of this encounter
--- OUTSIDE RECORDS SUMMARY | 2024-12-26 17:56 | XMS_ITS | Encounter Summary ---
Author Organization [facility] Address [address] [place] [address] Phone Care Team Providers Care Water Resource Manager Name Role Phone Bernabe Shore MD Primary Care Provider Ole Ryder MD Unavailable [phone] Dandy Ji MD Unavailable Jordan Rocha MD Unavailable [phone] Princess Diop RN Unavailable UnavailJoan Mars APRN, CHIEF OPERATING ENGINEER Unavailable [phone] Reason for Visit * Reason Comments Medication Refill Encounter Details Date Type Department Care Team (Late st Contact Info) Description 10/08/2020 Refill [facility] Family [facility] #2 [place] [address] Bernabe Shore MD #[address] [address] Medication Refill Social History Tobacco Use Types [...] Dept 11/29/19 Office Visit Bernabe Shore MD [facility] Showing recent visits within past 365 days and meeting all other requirements Future Appointments No visits were found meeting these conditions. Showing future appointments within next 90 days and meeting all other requirements documented in this encounter Plan of Treatment Upcoming Encounters Date Type Department Care Team (Late st Contact Info) Description 02/10/2025 11:00 AM CDT Telemedicine [facility] - Neurology [facility] #2 [place] [address] Joan Pedraza APRN, CHIEF OPERATING ENGINEER #2 [place] [address] 03/28/2025 9:30 AM CDT Procedure Visit [facility] - Neurology [facility] #2 [place] [address] Dandy Ji MD #2 [place] [address] 04/07/2025 10:45 AM CDT Office Visit [facility] Family Medicine [facility] #2 [place] [address] Bernabe Shore MD #[address] [address] documented as of this encounter Visit Diagnoses Not on filedocumented in this encounter Additional Health Concerns Infection Onset Date Last Indicated Resolved Time COVID - 19 04/29/2022 04/29/2022 05/09/2022 12:1 6 AM GETTER FILLER COVID - 19 06/16/2023 06/16/2023 06/26/2023 12:1 6 AM GETTER FILLER Assessment Noted Time PHQ-9 Depression Total Score: 0 11/29/19 8:49 AM CDT documented as of this encounter Care Teams Water Resource Manager Relationship Specialty Start Date End Date Bernabe Shore MD #[address] [address] PCP - General Family Medicine 08/28/15 Ole Ryder MD [address] [facility] [address] [facility] [address] [place] [address] Obstetrics & Gynecology 03/28/17 Dandy Ji MD #2 [place] [address] Consulting Physician Neurology 09/14/21 Jordan Rocha MD 1 [place] [address] Internal Medicine 04/13/24 Princess Diop RN [place] [facility] Forest Pathology Associate Professor 05/02/24 05/02/24 Joan Pedraza APRN, CHIEF OPERATING ENGINEER #[address] [place] [address] Nurse Practitioner Advanced Practice Nurse 08/13/24 documented as of this encounter
--- OUTSIDE RECORDS SUMMARY | 2024-12-26 17:56 | XMS_ITS | Clinical Summary ---
Author Organization [facility] Address [address] [facility] [place] [address] Care Team Providers Care Pipe Assembly Worker Name Role Phone Ole Hodge MD Unavailable [phone] Bernabe Shore MD Primary Care Provider [phone] Familia Painting MD Unavailable Source Comments [facility],non-owned Affiliates and Associated Physician Practices is amultiple site organization consisting of ambulatory clinics and hospital sitesin [place], [place], [place] and [place]. This disclosure is being madepursuant to the Care Everywhere program and may not contain all information available regarding this patient. Last updated 18.[facility] Allergies Active Allergy Reactions Criticality Noted Date [...] fluticasone propionate (Flonase) 50 MCG/ACT nasal spray [place] 1 (one) spray to 2 (two) sprays [...] needed 30 capsule 11 4 Active L-Methylfolate- Pdilr-O80-Q3 (Metanx) 3-90.314-2-35 MG capsule Take 1 (one) [...] 06/10/2021 Assessment & Plan (05/22/2023 1:45 PM RESEARCH CONTRACTS SUPERVISOR): Pap smear due 2025. Mammogram scheduled for next month Norethindrone represcribed Metanx represcribed RTC 1 year annual Assessment & Plan (06/10/2021 2:03 PM RESEARCH CONTRACTS SUPERVISOR): Pap smear performed - with HPV. Not yet due for mammogram. Family planning reviewed. She is currently using anovera for contraception. Will obtain records from her other PHYSICIAN REPRESENTATIVE to review ultrasound and other treatments she [...] improving. Assessment & Plan (06/10/2021 2:02 PM RESEARCH CONTRACTS SUPERVISOR): Reports severe pain upon approach orgasm. Will [...] PM CDT Legal Sex Female 5:38 AM RESEARCH CONTRACTS SUPERVISOR Gender Identity Female 04/18/2022 6:46 PM CDT Sexual Orientation Not on file Last Filed Vital Signs Vital Sign Reading Time Taken Comments Blood Pressure 124/80 07/26/2024 12:24 PM RESEARCH CONTRACTS SUPERVISOR Pulse 84 11/27/2023 1:56 PM CDT Temperature 37.2 C (99 F) 01/17/2024 11:55 AM CDT Respiratory Rate 18 12/28/2021 9:03 AM CDT Oxygen Saturation 100% 11/27/2023 1:56 PM CDT Inhaled Oxygen Concentration - - Weight 106.6 kg (235 lb) 07/26/2024 12:24 PM RESEARCH CONTRACTS SUPERVISOR Height 162.6 cm (5' 4) 07/26/2024 12:24 PM RESEARCH CONTRACTS SUPERVISOR Body Mass Index 40.34 07/26/2024 12:24 PM RESEARCH CONTRACTS SUPERVISOR Plan of Treatment Health Maintenance Due Date [...] this topic Medical Devices Implanted Type Area Cigar Roller Device Identifier Shelf Expiration Date Model / Serial / Lot Ld Nrstm Intstm 2.16mm Spc L28 Cm Qdpl Implanted:Qty: 1 on 12/14/2021 by Sheri Limon MD at [facility] N/A: Back [employer] 10/07/2022 [id number] / / [id number] Ld Rchrg Nrstm Intstm Raymond Surescan Mri - [id number] Implanted:Qty: 1 on 12/28/2021 by Sheri Limon MD at [facility] Right: Buttocks [employer] 10/21/2022 [id number] / [id number] / [id number] Procedures Procedure Name Priority Date/Time Associated Diagnosis Comments COMPREHENSIVE METABOLIC PANEL Routine 09/26/2022 3:31 PM CDT Myalgia HEPATITIS C AB W/RFLX TO HCV RNA QN PCR Routine 09/27/2021 Routine screening for STI (sexually transmitted infection) HIV-1 HIV-2 ANTIBODY + HIV P24 AG PANEL Routine 09/27/2021 Routine screening for STI (sexually transmitted infection) HPV DETECTION HIGH RISK CHIRAG Routine 06/07/2021 11:15 AM RESEARCH CONTRACTS SUPERVISOR Well woman exam with routine gynecological exam from Last 3 Months or Most Recently Relevant to Health Maintenance Results * (ABNORMAL) COMPREHENSIVE METABOLIC PANEL (09/26/2022 3:31 PM CDT) BUN 10 7 - 26 mg/dL 09/26/2022 5:15 PM [facility] Creatinine 0.68 0.56 - 0.96 mg/dL 09/26/2022 5:15 PM [facility] Sodium 142 136 - 145 mmol/L 09/26/2022 5:15 PM [facility] Potassium 3.2(L) 3.5 - 4.5 mmol/L 09/26/2022 5:15 PM [facility] Chloride 105 98 - 107 mmol/L 09/26/2022 5:15 PM [facility] CO2 24 22 - 29 mmol/L 09/26/2022 5:15 PM [facility] Glucose 119(H) 70 - 115 mg/dL 09/26/2022 5:15 PM [facility] Calcium 9.5 8.4 - 10.2 mg/dL 09/26/2022 5:15 PM [facility] Protein Total 7.3 6.0 - 8.3 g/dL 09/26/2022 5:15 PM [facility] Albumin 3.3(L) 3.4 - 5.0 g/dL 09/26/2022 5:15 PM [facility] Bilirubin Total 0.1(L) 0.2 - 1.2 mg/dL 09/26/2022 5:15 PM [facility] Alkaline Phosphatase 83 40 - 150 U/L 09/26/2022 5:15 PM [facility] ALT 32 5 - 55 U/L 09/26/2022 5:15 PM [facility] AST 24 5 - 34 U/L 09/26/2022 5:15 PM [facility] Anion Gap 16 8 - 18 09/26/2022 5:15 PM [facility] BUN/Creatinine Ratio 15 7 - 23 09/26/2022 5:15 PM [facility] Osmolality Calculated 294 270 - 300 mOsm/kg 09/26/2022 5:15 PM [facility] Albumin/Globulin Ratio 0.8(L) 1.1 - 2.3 09/26/2022 5:15 PM [facility] eGFR by CKD-EPI >90 >=90 mL/min/1.7 3 m2 09/26/2022 5:15 PM CDT [facility] Blood BLOOD SPECIMEN / Unknown Lab Venipuncture / Unknown 09/26/2022 3:31 PM CDT 09/26/2022 4:47 PM CDT Familia Painting MD LAB - CHEMISTRY ORDERABLES Final Result Performing Organization Address City/[facility]/ZIP Co de Phone Number [facility] [address] [place] [address], [facility] [phone] * HEPATITIS C AB W/RFLX TO HCV RNA QN PCR (09/27/2021) Pathologist [facility] Hepatitis C Antibody NON-REACTI VE NON-REACT NATI [facility] Signal to Cut-Off 0.01 <1.00 [facility] Comment: HCV antibody was non-reactive. There is no laboratory evidence of HCV infection. In most cases, no further action is required. However, if recent HCV exposure is suspected, a test for HCV RNA (test code 07902) is suggested. For additional information please refer to http://education.[employer]/faq/RRD24k0 (This link is being provided for informational/ educational purposes only.) Test Performed at: [facility] [address] [place] [address] ERNA MAIER DO,MPH Blood BLOOD SPECIMEN / Unknown 09/27/2021 09/27/2021 10:19 AM CDT Lanie Russell MD LAB - CHEMISTRY ORDERABLES Final Result Performing Organization Address City/[facility]/ZIP Co de Phone Number [facility] [address] [place] [address] * HIV-1 HIV-2 ANTIBODY + HIV P24 AG PANEL (09/27/2021) Pathologist [facility] HIV Screen 4th Generation w Reflex NON-REACT [...] purpose. For additional information please refer to http://education.[employer]/faq/AUS797 (This link is being provided for informational/ educational purposes only.) The performance of this assay has not been clinically validated in patients less than 2 years old. Test Performed at: [facility] [address] [place] [address] ERNA MAIER DO,MPH Blood BLOOD SPECIMEN / Unknown 09/27/2021 09/27/2021 10:19 AM CDT Lanie Russell MD LAB - CHEMISTRY ORDERABLES Final Result Performing Organization Address City/State/[facility] Co tx Phone Number [facility] [address] [place] [address] * HPV DETECTION HIGH RISK CHIRAG (06/07/2021 11:15 AM RESEARCH CONTRACTS SUPERVISOR) High Risk Human Papilloma Result Not detected Not detected 06/09/2021 7:30 AM RESEARCH CONTRACTS SUPERVISOR [facility] High Risk Human Papilloma Interp 06/09/2021 7:30 AM RESEARCH CONTRACTS SUPERVISOR [facility] Comment:High Risk Human Keny lloma Virus was Not Detected. Pathology/Cytolo gy MISCELLANEOUS SAMPLES / Unknown 06/07/2021 11:15 AM RESEARCH CONTRACTS SUPERVISOR 06/08/2021 12:35 PM RESEARCH CONTRACTS SUPERVISOR Narrative [facility] - 06/09/2021 7:30 AM RESEARCH CONTRACTS SUPERVISOR Nucleic acid isolated from the specimen was [...] data (cytology, histology, and clinical information). Lanie uRssell MD LAB - MICROBIOLOGY ORDERAB LES Final Result [facility] [address] [place] [address], [facility] [phone] from Last 3 Months or Most Recently Relevant to Health Maintenance Insurance [employer] MEDICAID [place] [employer] Care Teams Pipe Assembly Worker Relationship Specialty Start Date End Date Bernabe Shore MD [address] [place] [address] PCP - General 09/06/18 Ole Hodge MD [address] [place] [address] Internal Medicine 03/04/14 Familia Painting MD [address] [address] High School Assistant Principal Rheumatology 03/27/23
--- OUTSIDE RECORDS SUMMARY | 2024-12-26 17:56 | XMS_ITS | Encounter Summary ---
Author Organization [facility] Address [address] [place] [address] Care Team Providers Care Cuff Matcher Name Role Phone Bernabe Shore MD Primary Care Provider [phone] Bernabe Shore MD Unavailable [phone] Ole Hodge MD Unavailable [phone] Nathalia Ba MD Unavailable [phone] Dandy Ji MD Unavailable [phone] Milagro Beauchamp MD Unavailable [phone] Familia Painting MD Unavailable [phone] Emi Anderson MD Unavailable [phone] Rocio Mata DPT Unavailable [phone] Reason for Visit * Reason Onset Date Comments Pre Procedure Instructions 09/11/2024 Encounter Details Date Type Department Care Team (Late st Contact Info) Description 09/11/2024 Telephone [facility] [address] [facility] [address] [place] [address] Alie Rosas MD [address] [place] [address] Pre Procedure Instructions Social History Tobacco Use [...] on file Legal Sex Female 3:22 AM PERMIT REVIEW ASSISTANT Gender Identity Female 11/21/2020 10:51 AM CDT Sexual Orientation Bisexual 08/16/2024 10 :11 AM PERMIT REVIEW ASSISTANT 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 Operating Room [address] [place] [address] Kacey Jean MD [address] [facility] [phone] [place], [place] [id number] 02/28/2025 11:30 AM CDT - 02/28/2025 3:25 PM CDT Surgery [facility] Operating Room [address] [place] [address] Kacey Jean MD [address] [facility] [phone] [place], [place] [phone] CYSTOSCOPY Scheduled Procedures Name Priority Associated Diagnoses [...] stairs Contact your local community or senior [place] for information on exercise, fall prevention programs, or options for improving home safety. documented as of this encounter Visit Diagnoses Not on filedocumented in this encounter Care Teams Cuff Matcher Relationship Specialty Start Date End Date Bernabe Shore MD [address] [facility] [address] [place] [address] PCP - General Family Medicine 07/24/23 Bernabe Shore MD [address] [place] [address] 07/24/23 Ole Hodge MD [address] [place] [address] 03/15/18 Nathalia Ba MD [address] [place] [address] Referring Physician Ophthalmology 10/25/22 Dandy Ji MD [address] [place] [address] Neurologist Neurology 10/25/22 Milagro Beauchamp MD [address] [place] [address] Neurologist Neurology 10/25/22 Familia Painting MD [address] [place] [address] Consulting Physician Rheumatology 10/25/22 Emi Anderson MD [address] [place] [address] Surgeon Orthopedic Surgery 11/04/22 Rocio Mata DPT [address] [place] [address] Physical Therapist Physical Therapy 10/17/24 documented as of this encounter
--- OUTSIDE RECORDS SUMMARY | 2024-12-26 17:56 | XMS_ITS | Encounter Summary ---
Author Organization [facility] Address [address] [place] [address] Care Team Providers Care Acute Care Nurse Name Role Phone Ole Hodge MD Unavailable [phone] Bernabe Shore MD Primary Care Provider [phone] Familia Painting MD Unavailable Reason for Referral * PT/OT/ST (Routine) - Closed Specialty Diagnoses / Procedures Referred By Contgabriel t Referred To Contact Diagnoses Pelvic pain Lanie Russell MD [address] [place] [address] Phone: tel: fax: Referral ID Status Reason Start Date Expiration Date V isits Requested Visits Authorized [id number] Closed Specialty Services Required 06/17/2021 06/17/2022 1 1 Scheduling Instructions Pelvic floor physical therapy for pelvic pain SCOUT Reason for Visit * Reason Onset Date Comments Insurance Issue/question 06/16/2021 Encounter Details Date Type Department Care Team (Late st Contact Info) Description 06/16/2021 Telephone [facility] [address] [place] [address] [place] [address] [place] [address] Insurance Issue/question Social History Tobacco Use [...] PM CDT Legal Sex Female 5:38 AM OIL SCOUT Gender Identity Female 04/18/2022 6:46 PM CDT Sexual Orientation Not on file documented as of this encounter Miscellaneous Notes * Telephone Encounter - Wen Cunha RN - 06/17/2021 11:53 AM OIL SCOUT RN returned call to [facility] physical therapy. No answer, left VM to return customer service officer call. Order placed for pelvic floor Pt for dx pelvic pain KAI Horton SCOUT * Telephone Encounter - Emily Velasco - 06/16/2021 11:34 AM CST Azeb from [facility] Healthcare calling about the Pelvic Floor related results. The insurance won't cover it the way it was coded. Please advise: [phone] SCOUT documented in this encounter Plan of Treatment Scheduled Referrals Name Type Priority Associated Diagnoses Orde r Schedule Ref to Physical Therapy - [facility] PT Outpatient Referral Routine Pelvic pain Ordered: 06/17/2021 documented as of this encounter Visit Diagnoses Diagnosis Pelvic pain- Primary Unspecified symptom associated with female genital organs documented in this encounter Care Teams Acute Care Nurse Relationship Specialty Start Date End Date Bernabe Shore MD [address] [place] [address] PCP - General 09/06/18 Ole Hodge MD [address] [place] [address] Internal Medicine 03/04/14 Familia Painting MD [address] [address] Lube Worker Rheumatology 03/27/23 documented as of this encounter
--- OUTSIDE RECORDS SUMMARY | 2024-12-26 17:57 | XMS_ITS | Encounter Summary ---
Author Organization [facility] Address [address] [place] [address] Phone Care Team Providers Care Diesel Stationary Engineer Name Role Phone Bernabe Shore MD Primary Care Provider [phone] Ole Ryder MD Unavailable [phone] Dandy Ji MD Unavailable [phone] Jordan Rocha MD Unavailable [phone] Joan Pedraza APRN, GARNETT MACHINE OPERATOR Unavailable [phone] Reason for Visit * Reason Comments Botox Injection * Consult, Test & Initiate Treatment (Routine) - Authorized Specialty Diagnoses / Procedures Referred By Contac t Referred To Contact Diagnoses Chronic migraine with aura without status migrainosus, not intractable Chronic migraine without aura without status migrainosus, not intractable Joan Pedraza, HOOP ROLLS OPERATOR, GARNETT MACHINE OPERATOR [address] [place] [address] Phone: tel: fax: Referral ID Status Reason Start Date Expiration Date V isits Requested Visits Authorized [id number] Authorized 10/04/2024 1 4 Encounter Details Date Type Department Care Team (Late st Contact Info) Description 12/25/2024 10:30 AM CDT [facility] [address] [place] [address] Dandy Ji MD [address] [place] [address] Chronic migraine with aura without status migrainosus, [...] oz pur e alcohol) socially [facility] Utilities Answer Date Recorded In the past [...] week 10/06/2024 How often do you attend [facility] or hindu services? 1 to 4 times per year 10/06/2024 Do you belong to any clubs o r organizations such as hinduism groups, unions, fraternal or athletic groups, or [...] Score - Questions 1-9 0 10/2 10/2023 [facility] of Occupat ional [facility] - Occupational Stress Questionnaire Answer [...] any time in the past 12 m [facility], were you homeless or living in a mcfp (including now)? No 10/06/2024 Education Answer Date [...] Info) Description 02/10/2025 11:00 AM CDT Telemedicine [facility] Neurology [facility] [address] [place] [address] Joan Pedraza APRN, GARNETT MACHINE OPERATOR [address] [place] [address] 03/28/2025 9:30 AM CDT Procedure Visit [facility] Neurology [facility] [address] [place] [address] Dandy Ji MD [address] [place] [address] 04/07/2025 10:45 AM CDT Office Visit [facility] Family Medicine [facility] [address] [place] [address] Bernabe Shore MD [address] [address] documented as of this encounter Goals Goal Patient Goal Type Associated Problems Recent Progress Patient-Stated? Author Chronic Disease Management Chronic Disease Management On track(2023 1:33 PM EYEWEAR CONSULTANT) No Candy Souza, RN Note: To effectively check in with [facility] Remote Patient Monitoring Hypertension program via text on Monday at 5:00* pm. Chronic Disease Management Chronic Disease Management On track(2023 1:38 PM EYEWEAR CONSULTANT) No Princess Diop, RN Note: [facility] [...] procedure with no complications. Dandy Ji MD [place] - SURGERY Final Result documented in this [...] documented as of this encounter Care Teams Diesel Stationary Engineer Relationship Specialty Start Date End Date Bernabe Shore MD [address] [address] PCP - General Family Medicine 08/28/15 Ole Ryder MD [address] [place] [address] Obstetrics & Gynecology 03/28/17 Dandy Ji MD [address] [place] [address] Consulting Physician Neurology 09/14/21 Jordan Rocha MD [address] [place] [address] Internal Medicine 04/13/24 Joan Pedraza, HOOP ROLLS OPERATOR, GARNETT MACHINE OPERATOR [address] [place] [address] Nurse Practitioner Advanced Practice Nurse 08/13/24 documented as of this encounter
--- OUTSIDE RECORDS SUMMARY | 2024-12-26 17:57 | XMS_ITS | Encounter Summary ---
Author Organization [facility] Address [address] [place] [address] Phone Care Team Providers Care Volunteer Recruiter Name Role Phone Bernabe Shore MD Primary Care Provider Ole Ryder MD Unavailable [phone] Dandy Ji MD Unavailable [phone] Jordan Rocha MD Unavailable [phone] Joan Pedraza APRN, ENVELOPE PATTERNMAKER Unavailable [phone] Encounter Details Date Type Department Care Team (Late st Contact Info) Description 12/26/2024 Telephone [facility] - [facility] [address] [place] [address] Joan Pedraza, YESI, ENVELOPE PATTERNMAKER [address] [place] [address] Social History Tobacco Use Types Packs/Day Years [...] often do you attend chur ch or orthodoxy services? 1 to 4 times per year 10/06/2024 Do you belong to any clubs o r organizations such as mandaen groups, unions, fraternal or athletic groups, or [...] Total Score - Questions 1-9 0 03/27 [facility] - Occupational Stress Questionnaire Answer Date [...] any time in the past 12 m [facility], were you homeless or living in a fpc (including now)? No 10/06/2024 Education Answer Date [...] [facility] - [place] [address] [place] [address] Joan Pedraza APRN, ENVELOPE PATTERNMAKER [address] [place] [address] 03/28/2025 9:30 AM CDT Procedure Visit [facility] - [place] [address] [place] [address] Dandy Ji MD [address] [place] [address] 04/07/2025 10:45 AM CDT Office Visit [facility] [place] [address] [facility] [place] [address] Bernabe Shore MD [address] [address] documented as of this encounter Goals Goal Patient Goal Type Associated Problems Recent Progress Patient-Stated? Author Chronic Disease Management Chronic Disease Management On track(2023 1:33 PM OVERLOCK WAISTLINE JOINER) No Candy Souza RN Note: To effectively check in with [facility] Hypertension program via text on Monday at 5:00* pm. Chronic Disease Management Chronic Disease Management On track(2023 1:38 PM OVERLOCK WAISTLINE JOINER) No Princess Diop, RN Note: [facility] RPM Hypertension Goal [...] documented as of this encounter Care Teams Volunteer Recruiter Relationship Specialty Start Date End Date Bernabe Shore MD #2 [facility] [address] [place] [address] PCP - General Family Medicine 08/28/15 Ole Ryder MD [address] [facility] [address] [place] [address] Obstetrics & Gynecology 03/28/17 Dandy Ji MD [address] [place] [address] Consulting Physician Neurology 09/14/21 Jordan Rocha MD [address] [place] [address] Internal Medicine 04/13/24 Joan Pedraza APRN, ENVELOPE PATTERNMAKER [address] [place] [address] Nurse Practitioner Advanced Practice Nurse 08/13/24 documented as of this encounter
== END 2024-12-26 18:10 | disposition left against medical advice (07) ==
LOC: ANHED 17:54
PROVIDERS: PCP Internal Medicine
DX: K62.2 Anal prolapse (principal)
CPT/HCPCS: 99199

== ENCOUNTER 2025-02-14 11:57 | Outpatient (CLI) | payer OTHER, MEDICAID, SELFPAY ==
--- NOTE | ~2025-02-14 | MM_ITS ---
EXAMINATION: MM screening justina BI w doreen HISTORY: Screening mammogram TECHNIQUE: Craniocaudal and mediolateral oblique 3-D tomosynthesis images were obtained and synthetic 2-D images were generated. CAD analysis was submitted and interpreted. COMPARISON: 06/24/2023 BREAST PARENCHYMAL COMPOSITION:Not Dense. There are scattered areas of fibroglandular density. FINDINGS: No suspicious mass, calcification, or architectural distortion are identified in either breast to suggest malignancy. There has been no suspicious interval change. IMPRESSION: No mammographic evidence of malignancy. Recommend routine screening mammography in one year. BI-RADS Category 1: Negative Reviewed, dictated and finalized at location .
== END 2025-02-14 11:58 | disposition home or self-care (01) ==
PROVIDERS: PCP Internal Medicine; Visit Provider Internal Medicine
DX: Z12.31 Encounter for screening mammogram for malignant neoplasm of breast (principal)
CPT/HCPCS: 77063; 77067